=== PATIENT | male | born 1970 ===

== ENCOUNTER 2023-06-16 10:08 | Outpatient (REF) | payer MEDICAID, SELFPAY ==
[2023-06-16 12:07] LABS: Alanine Aminotransferase 36 U/L (0-40); Albumin Level 4.6 g/dL (3.5-5.0); Alkaline Phosphatase 79 U/L (39-117); Anion Gap 11 (12-20); Aspartate Amino Transferase 33 U/L (5-37); Bilirubin Direct 0.2 mg/dL (0.0-0.5); Bilirubin Total 0.5 mg/dL (0.0-1.0); Blood Urea Nitrogen 13 mg/dL (9-16); Calcium 9.6 mg/dL (8.4-10.2); Carbon Dioxide 27 mmol/L (22-29); Chloride 109 mmol/L (96-108); Cholesterol 149 mg/dL (<200); Estimated Glomerular Filt Rate > 60; Glucose Random 104 mg/dL (60-115); HDL Cholesterol 61 mg/dL (>40); LDL Cholesterol Calculated 69 mg/dL (<100); Sodium 143 mmol/L (135-145); Total Protein 7.6 g/dL (6.5-8.0); Triglycerides 97 mg/dL (<150)
[2023-06-16 12:23] LABS: TSH reflex Free T4 0.92 uIU/mL (0.32-4.0)
== END 2023-06-16 10:09 | disposition home or self-care (01) ==
LOC: HO.HHCL 10:08
PROVIDERS: Visit Provider Family Medicine
DX: E78.00 Pure hypercholesterolemia, unspecified (principal); I10 Essential (primary) hypertension; E03.9 Hypothyroidism, unspecified
CPT/HCPCS: 36415; 80048; 80061; 80076; 84443

== ENCOUNTER 2023-10-20 11:49 | Outpatient (REF) | payer MEDICAID, SELFPAY ==
[2023-10-20 13:09] LABS: MANUAL DIFF FLAG NO
[2023-10-20 13:20] LABS: Basophils Absolute Auto 0.1 X10*3/uL (0.0-0.2); Basophils Percent Auto 0.8 % (0-2); Eosinophils Percent Auto 0.3 % (0-4); Hematocrit 42.5 % (42.0-52.0); Hemoglobin 14.5 g/dl (14.0-18.0); Imm Gran Abs Auto 0.05 X10*3/uL (0.00-0.03); Imm Gran Pct Auto 0.4 % (0.0-0.4); Lymphocytes Absolute Auto 2.7 X10*3/uL (1.2-4.9); Lymphocytes Percent Auto 22.3 % (20-40); Mean Corpuscular HGB Conc 34.1 g/dl (31.0-36.0); Mean Corpuscular Hemoglobin 31.4 pg (27.0-33.0); Mean Platelet Volume 9.8 fL (9.4-12.4); Monocytes Percent Auto 8.2 % (2-11); Neutrophils Absolute Auto 8.1 x10*3/uL (2.0-8.3); Platelet Count 371 X10*3/uL (160-400); Red Blood Count 4.62 X10*6/uL (4.60-5.80); Red Cell Distribution Width 13.7 % (11.0-16.0)
[2023-10-20 13:30] LABS: Rheumatoid Factor 30.3 IU/mL (<15.0)
[2023-10-20 13:59] LABS: Erythrocyte Sedimentation Rate 21 MM/HR (0-15)
[2023-10-23 17:08] LABS: Lyme Abs Screen <0.90 index
== END 2023-10-20 11:50 | disposition home or self-care (01) ==
LOC: HO.HHCL 11:49
PROVIDERS: Visit Provider Nurse Practitioner Family
DX: M25.562 Pain in left knee (principal); M05.7A Rheumatoid arthritis with rheumatoid factor of other specified site without organ or systems involvement
CPT/HCPCS: 36415; 85025; 85652; 86140; 86431; 86617; 86618

== ENCOUNTER 2023-10-20 12:13 | Outpatient (REF) | payer MEDICAID, SELFPAY ==
--- NOTE | ~2023-10-20 | XR_ITS ---
EXAMINATION: XR KNEE, LEFT CLINICAL INFORMATION: Pain and swelling; history of rheumatoid arthritis. COMPARISON: None available. TECHNIQUE: AP, lateral, tunnel, and sunrise views of the left knee. FINDINGS: No fracture or joint effusion. Alignment is anatomic. Joint spaces are maintained. There is a trace peripheral osteophyte of the medial femoral condyle. No abnormal soft tissue calcification. XR/XR knee LT 4V IMPRESSION: Unremarkable left knee.
== END 2023-10-20 12:14 | disposition home or self-care (01) ==
LOC: HO.XRAY 12:13
PROVIDERS: Visit Provider Nurse Practitioner Family
DX: M25.562 Pain in left knee (principal); M05.7A Rheumatoid arthritis with rheumatoid factor of other specified site without organ or systems involvement
CPT/HCPCS: 36415; 73564; 85025; 85652; 86140; 86431; 86618

== ENCOUNTER 2023-12-29 13:44 | Outpatient (REF) | payer MEDICAID, SELFPAY ==
--- NOTE | ~2023-12-29 | XR_ITS ---
EXAMINATION: XR SACROILIAC JOINTS 4 VIEWS CLINICAL INFORMATION: Other dorsalgia M54.89. COMPARISON: None available TECHNIQUE: 4 views of the sacroiliac joints FINDINGS: Mild bilateral SI joint arthritis, with subchondral sclerosis/cysts marginating the SI joints.. Gas and stool projected over the pelvic bones, sacrum and coccyx limiting evaluation. In the nonobscured bones, no acute fracture seen. XR/XR sacroiliac joint 1-2V IMPRESSION: Mild bilateral SI joint osteoarthritis.. Study is assigned for dictation on February 28, 2024 Electronically signed by: Onofre Lopez MD 02/28/2024 12:02 PM ELIUD Workstation: [id number]
--- NOTE | ~2023-12-29 | XR_ITS ---
EXAMINATION: XR RIGHT HAND AND WRIST COMPLETE CLINICAL INFORMATION: Rheumatoid arthritis, unspecified M06.9. COMPARISON: None available. TECHNIQUE: PA, lateral, and oblique views of the right hand and wrist. FINDINGS: No fracture. Alignment is anatomic. Joint spaces are maintained. No erosions or soft tissue calcifications. XR/XR hand wrist RT IMPRESSION: No acute osseous abnormality Study is assigned for dictation on February 28, 2024 Electronically signed by: Onofre Lopez MD 02/28/2024 04:54 PM ELIUD KERNS
--- NOTE | ~2023-12-29 | XR_ITS ---
EXAMINATION: XR LEFT FOOT 3 OR MORE VIEWS CLINICAL INFORMATION: Rheumatoid arthritis, unspecified M06.9. COMPARISON: None available. TECHNIQUE: AP, lateral, and oblique views of the left foot. FINDINGS: . No acute fracture. Alignment is anatomic. Mild degenerative arthritis in some of the interphalangeal joints of the toes.. No erosions. No abnormal soft tissue calcification. XR/XR foot LT min 3V IMPRESSION: Mild osteoarthritis. Study is assigned for dictation on February 28, 2024 Electronically signed by: Onofre Lopez MD 02/28/2024 02:43 PM ELIUD KERNS
--- NOTE | ~2023-12-29 | XR_ITS ---
EXAMINATION: XR RIGHT FOOT 3 VIEWS CLINICAL INFORMATION: Rheumatoid arthritis, unspecified M06.9. COMPARISON: None available. TECHNIQUE: AP, lateral, and oblique views of the right foot. FINDINGS: No acute fracture. Alignment is anatomic. Mild degenerative arthritis in some of the interphalangeal joints of the toes. No erosions. No abnormal soft tissue calcification.. XR/XR foot RT min 3V IMPRESSION: Mild degenerative arthritis. Study is assigned for dictation on February 28, 2024 Electronically signed by: Onofre Lopez MD 02/28/2024 02:38 PM EST RP
--- NOTE | ~2023-12-29 | XR_ITS ---
EXAMINATION: XR RIGHT SHOULDER 3 VIEWS CLINICAL INFORMATION: Rheumatoid arthritis, unspecified M06.9. COMPARISON: None available. TECHNIQUE: Three views of the right shoulder. FINDINGS: No fracture. Glenohumeral and acromioclavicular alignment is anatomic with normal joint space. Mild acromioclavicular arthritis. No abnormal soft tissue calcifications. XR/XR shoulder RT min 2V IMPRESSION: Mild acromioclavicular arthritis. Study is assigned for dictation on February 28, 2024 Electronically signed by: Onofre Lopez MD 02/28/2024 12:46 PM EST RP Workstation: [id number]
--- NOTE | ~2023-12-29 | XR_ITS ---
EXAMINATION: XR LEFT SHOULDER 3 VIEWS CLINICAL INFORMATION: Rheumatoid arthritis, unspecified M06.9. COMPARISON: None available. TECHNIQUE: Three views of the left shoulder. FINDINGS: No fracture. Glenohumeral and acromioclavicular alignment is anatomic with normal joint space. No abnormal soft tissue calcifications. XR/XR shoulder LT min 2V IMPRESSION: No acute osseous abnormality Study is assigned for dictation on February 28, 2024 Electronically signed by: Onofre Lopez MD 02/28/2024 04:50 PM EST RP
--- NOTE | ~2023-12-29 | XR_ITS ---
EXAMINATION: XR LEFT HAND AND WRIST COMPLETE CLINICAL INFORMATION: Rheumatoid arthritis, unspecified M06.9. COMPARISON: None available. TECHNIQUE: PA, lateral, and oblique views of the left hand and wrist. FINDINGS: No fracture. Alignment is anatomic. Mild fifth DIP joint space narrowing. Joint spaces otherwise are maintained. No erosions or soft tissue calcifications. XR/XR hand wrist LT IMPRESSION: Mild fifth DIP joint osteoarthritis Study is assigned for dictation on February 28, 2024 Electronically signed by: Onofre Lopez MD 02/28/2024 12:46 PM ELIUD KERNS
[2023-12-29 15:18] LABS: MANUAL DIFF FLAG NO
[2023-12-29 15:30] LABS: Basophils Absolute Auto 0.1 X10*3/uL (0.0-0.2); Basophils Percent Auto 1.2 % (0-2); Eosinophils Absolute Auto 0.1 X10*3/uL (0.0-0.4); Eosinophils Percent Auto 1.1 % (0-4); Hematocrit 41.5 % (42.0-52.0); Hemoglobin 14.4 g/dl (14.0-18.0); Imm Gran Abs Auto 0.02 X10*3/uL (0.00-0.03); Imm Gran Pct Auto 0.2 % (0.0-0.4); Lymphocytes Absolute Auto 2.9 X10*3/uL (1.2-4.9); Lymphocytes Percent Auto 32.2 % (20-40); Mean Corpuscular HGB Conc 34.7 g/dl (31.0-36.0); Mean Corpuscular Hemoglobin 31.1 pg (27.0-33.0); Mean Corpuscular Volume 89.6 fL (80.0-98.0); Mean Platelet Volume 9.3 fL (9.4-12.4); Monocytes Absolute Auto 0.6 X10*3/uL (0.1-1.2); Monocytes Percent Auto 6.7 % (2-11); Neutrophils Absolute Auto 5.2 x10*3/uL (2.0-8.3); Neutrophils Percent Auto 58.6 % (45-73); Platelet Count 321 X10*3/uL (160-400); Red Blood Count 4.63 X10*6/uL (4.60-5.80); Red Cell Distribution Width 13.7 % (11.0-16.0); White Blood Count 8.9 X10*3/uL (4.8-10.8)
[2023-12-29 15:58] LABS: Rheumatoid Factor 25.7 IU/mL (<15.0)
[2023-12-29 16:00] LABS: Alanine Aminotransferase 35 U/L (0-40); Albumin Level 4.6 g/dL (3.5-5.0); Alkaline Phosphatase 86 U/L (39-117); Anion Gap 11 (12-20); Aspartate Amino Transferase 37 U/L (5-37); Bilirubin Total 0.4 mg/dL (0.0-1.0); Blood Urea Nitrogen 10 mg/dL (9-16); C Reactive Protein < 0.10 mg/dL (< or = 0.50); Calcium 9.7 mg/dL (8.4-10.2); Carbon Dioxide 27 mmol/L (22-29); Chloride 109 mmol/L (96-108); Estimated Glomerular Filt Rate > 60; Glucose Random 98 mg/dL (60-115); Potassium 4.3 mmol/L (3.3-5.1); Sodium 143 mmol/L (135-145); Total Protein 7.5 g/dL (6.5-8.0)
[2023-12-29 16:09] LABS: Erythrocyte Sedimentation Rate 6 MM/HR (0-15)
[2023-12-30 04:17] LABS: HBS Num1 0.57 mIU/mL (0-7.99); HBc Num1 0.07 S/CO (0.00-0.79); Hepatitis A Antibody IgM 0.31 Index (0-0.79); Hepatitis B Core Antibody Nonreactive (Nonreactive); Hepatitis B Surface Antigen Negative (Negative); ~HepC Num1 0.07 S/CO (0.00-0.79); ~Hepatitis A Antibody IgM Nonreactive (Nonreactive); ~Hepatitis B Surface Antibody NONREACTIVE (Nonreactive); ~Hepatitis C Antibody Nonreactive (Nonreactive)
[2024-01-03 14:53] LABS: HLA B27 Negative (Negative)
[2024-01-04 13:48] LABS: Cyclic Citrullinated Peptide <16 UNITS
== END 2023-12-29 13:45 | disposition home or self-care (01) ==
LOC: HO.LAB 13:44
PROVIDERS: Visit Provider Student in an Organized Health Care Education/Training Program
DX: M06.9 Rheumatoid arthritis, unspecified (principal); M54.89 Other dorsalgia
CPT/HCPCS: 36415; 72200; 73030; 73110; 73130; 73630; 80053; 85025; 85652; 86140; 86200; 86431; 86704; 86706; 86709; 86803; 86812; 87340; 99202

== ENCOUNTER 2023-12-29 13:44 | Outpatient (AMB) | payer MEDICAID, SELFPAY ==
--- NOTE | 2023-12-29 14:01 | A.OFFVIS_ITS ---
Vital Signs 12/29/23 14:18 12/29/23 14:30 Height 5 ft 7 in Weight 171 lb 4.787 oz BMI 26.8 26.8 BP 102/60 Blood Pressure Location Lt brachial Position Sitting Pulse 102 H Pulse Source Pulse Oximeter Pulse Oximetry (%) 97 Oxygen Delivery Method Room Air Intake Visit Reasons: Rheumatoid Arthritis Intake Note: Patient presents for RA. I feel pain on both shoulders, back of neck, lower back, both knees and both heels. I been feeling this pain for 3 or 4 years. I am taking Celebrex and it works short term Newspaper Columnist Required: Yes Newspaper Columnist Language: Sign Maker Services: Newspaper Columnist Present Newspaper Columnist Name: Anette [id number] Information Interpreted: non-clinical & clinical Allergies No Known Allergies Allergy (Verified 12/29/23 14:09) Medication List - Last Reconciled 12/29/23 by Isamar Richter MD amlodipine 5 mg PO DAILY aspirin 81 mg PO DAILY atorvastatin 20 mg PO DAILY bupropion HCl XL 150 mg PO QAM gabapentin 300 mg PO BEDTIME levothyroxine 50 mcg PO DAILY lisinopril 10 mg PO DAILY HPI Comments Details: Patient is a 52-year-old male with hypertension, hyperlipidemia, hypothyroidism on levothyroxine and depression presents for evaluation of a diagnosis of rheumatoid arthritis. He recently immigrated to the [facility] from [place] about 8 months ago. He states that about 2 years ago he was diagnosed with rheumatoid arthritis when he was in [place]. He was given meloxicam for his pain which helped his pain a little but not completely. He denies ever being placed on methotrexate or any injectable medications. Today he complains of polyarticular joint pain involving the hands wrists elbows, shoulders, knees and back. He states that he has prolonged morning stiffness about 2-3 hours and this is associated with swelling and inability to open and close his hands. He does have a very strong family history of rheumatoid arthritis stating that his mother and his sisters have rheumatoid arthritis as well. Denies history of monoarticular joint swelling. [facility] Medical History (Updated 12/29/23 @ 14:59 by Isamar Richter MD) Asthma in adult without complication Generalized anxiety disorder Hypothyroidism Hypercholesterolemia Benign essential hypertension Tobacco dependence Pain in left knee Rheumatoid arthritis Social History (Updated 12/29/23 @ 14:18 by Frances Castillo CCMA) Household Members: Family Housing: House Alcohol intake: current Comment: Rare Patient Tobacco Use Status: Former Tobacco user Tobacco use type: Cigarette Cigarette Packs Per Day: 1 Years Smoked: 40 Review of Systems Const Details: Review of Systems Constitutional: Denies fever, chills, weight loss ENT: Denies vision changes, eye pain or eye redness, dental caries, dry mouth GI: Denies nausea, vomiting, diarrhea, abdominal pain, change in BM Pulm: Denies SOB, CAMP[place], hemoptysis, wheezing Cards: Denies chest pain, palpitations Skin: Denies Raynaud's, rash, nail changes, photosensitivity, PLUMBER AND TINNER: Denies headaches, weakness, paresthesias, recurrent falls MSK: as per HPI All other systems reviewed and are unremarkable except noted above Physical Exam Vital Signs: Last Vital Signs Pulse 102 H 12/29/23 14:18 BP 102/60 12/29/23 14:18 Pulse Ox 97 12/29/23 14:18 Oxygen Delivery Method Room Air 12/29/23 14:18 BMI result Body Mass Index 26.8 Const Other: Physical Examination Patient well appearing and in no apparent painful distress. Constitutional Mucous membranes pink and moist patient alert and cooperative HEENT Conjunctiva and sclera clear. ?Pupils equal round and reactive to light. ?No lymphadenopathy. ?Normal dentition. Respiratory System Normal respiratory effort and able to speak in complete sentences. ?Clear to auscultation bilaterally. ?No crackles, rales, rhonchi, wheezes heard. Cardiac System Regular rate and rhythm. ?S1 and S2 heard no murmurs. ?Radial pulses intact bilaterally MSK Patient with tenderness to palpation of the MCPs bilaterally, wrists, elbows, shoulders. No warmth or bogginess noted in these joints. (he was recently placed on Celebrex) Full range of motion to the joints. Results Reviewed Results Reviewed: Laboratory Tests 06/16/23 10/20/23 10:12 11:55 WBC 12.0 H RBC 4.62 Hgb 14.5 Hct 42.5 Plt Count 371 ESR 21 H Sodium 143 Potassium 4.0 Chloride 109 H Carbon Dioxide 27 BUN 13 Creatinine 0.83 Calcium 9.6 AST 33 ALT 36 Alkaline Phosphatase 79 C-Reactive Protein 2.50 H Total Protein 7.6 Albumin 4.6 Rheumatoid Factor 30.3 H Knee x-ray 10/20/2023 reviewed. No abnormalities noted. (My read) Assessment & Plan Assessment & Plan (1) Rheumatoid arthritis: Code(s): M06.9 - Rheumatoid arthritis, unspecified Category: Medical Qualifiers: Rheumatoid arthritis location: multiple sites Rheumatoid factor presence: with rheumatoid factor Qualified Code(s): M05.79 - Rheumatoid arthritis with rheumatoid factor of multiple sites without organ or systems involvement Plan: #Inflammatory arthritis Patient with active inflammation and synovitis on examination today consistent with inflammatory arthritis. She does have a positive RF on file but we will check CCP as well as HLA B27. Need to confirm the diagnosis of rheumatoid arthritis prior to starting methotrexate but in the meantime I gave him a prednisone taper and I will see him in 1 month with blood results as well as x- rays. Plan I spent 45 minutes reviewing the record and labs, seeing the patient, discussing the treatment plan and documenting in the medical record Orders: Orders C Reactive Protein Today M06.9 - Rheumatoid arthritis, unspecified Erythrocyte Sedimentation Rate Today M06.9 - Rheumatoid arthritis, unspecified Hepatitis A,B,C Profile Today M06.9 - Rheumatoid arthritis, unspecified Rheumatoid Factor Today M06.9 - Rheumatoid arthritis, unspecified XR foot RT min 3V Today M06.9 - Rheumatoid arthritis, unspecified XR shoulder LT min 2V Today M06.9 - Rheumatoid arthritis, unspecified XR sacroiliac joint 1-2V Today M54.89 - Other dorsalgia Comprehensive Met. Panel Today M06.9 - Rheumatoid arthritis, unspecified Complete Blood Count Auto Diff Today M06.9 - Rheumatoid arthritis, unspecified Cyclic Citrullinated Peptide Today M06.9 - Rheumatoid arthritis, unspecified XR hand wrist LT Today M06.9 - Rheumatoid arthritis, unspecified XR hand wrist RT Today M06.9 - Rheumatoid arthritis, unspecified XR foot LT min 3V Today M06.9 - Rheumatoid arthritis, unspecified XR shoulder RT min 2V Today M06.9 - Rheumatoid arthritis, unspecified HLA B27 Today M54.89 - Other dorsalgia Medications: New prednisone take 3 tablets (15mg) for 1 week then 2 tablets (10mg) for 1 week then 1 tablet (5mg) for 2 weeks 5 mg PO DIRECTED 50 tabs 0RF Coding Level of Care Code New Pt Level 4 (70114) Complex EM visit Add On G2211 Diagnoses Rheumatoid arthritis involving multiple sites with positive rheumatoid factor M05.79 Rheumatoid arthritis location: multiple sites Rheumatoid factor presence: with rheumatoid factor
[2023-12-29 14:18] VITALS: BP 102/60; PULSE 102; O2SAT 97; BMI 26.8
--- NOTE | 2023-12-29 14:28 | MHC.OFFVIS ---
Vital Signs 12/29/23 14:18 12/29/23 14:30 Height 5 ft 7 in Weight 171 lb 4.787 oz BMI 26.8 26.8 BP 102/60 Blood Pressure Location Lt brachial Position Sitting Pulse 102 H Pulse Source Pulse Oximeter Pulse Oximetry (%) 97 Oxygen Delivery Method Room Air Intake Visit Reasons: Rheumatoid Arthritis Kindergarten Instructional Assistant Required: Yes Kindergarten Instructional Assistant Services: Kindergarten Instructional Assistant Present Kindergarten Instructional Assistant Name: Anette #[id number] Information Interpreted: non-clinical & clinical General Science Teacher: General Science Teacher Present Accompanied by: Spouse Allergies No Known Allergies Allergy (Verified 12/29/23 14:09) Medication List - Last Reconciled 12/29/23 by Isamar Richter MD amlodipine 5 mg PO DAILY aspirin 81 mg PO DAILY atorvastatin 20 mg PO DAILY bupropion HCl XL 150 mg PO QAM gabapentin 300 mg PO BEDTIME levothyroxine 50 mcg PO DAILY lisinopril 10 mg PO DAILY HPI Comments Details: Patient is a 52-year-old male with hypertension, hyperlipidemia, hypothyroidism on levothyroxine and depression presents for evaluation of a diagnosis of rheumatoid arthritis. He recently immigrated to the [facility] from [place] about 8 months ago. He states that about 2 years ago he was diagnosed with rheumatoid arthritis when he was in [place]. He was given meloxicam for his pain which helped his pain a little but not completely. He denies ever being placed on methotrexate or any injectable medications. Today he complains of polyarticular joint pain involving the hands wrists elbows, shoulders, knees and back. He states that he has prolonged morning stiffness about 2-3 hours and this is associated with swelling and inability to open and close his hands. He does have a very strong family history of rheumatoid arthritis stating that his mother and his sisters have rheumatoid arthritis as well. Denies history of monoarticular joint swelling. [facility] Medical History (Updated 12/29/23 @ 14:38 by Isamar Richter MD) Asthma in adult without complication Generalized anxiety disorder Hypothyroidism Hypercholesterolemia Benign essential hypertension Tobacco dependence Pain in left knee Rheumatoid arthritis Social History (Updated 12/29/23 @ 14:18 by HIRAL Presley) Household Members: Family Housing: House Alcohol intake: current Comment: Rare Patient Tobacco Use Status: Former Tobacco user Tobacco use type: Cigarette Cigarette Packs Per Day: 1 Years Smoked: 40 Review of Systems Const Details: Review of Systems Constitutional: Denies fever, chills, weight loss ENT: Denies vision changes, eye pain or eye redness, dental caries, dry mouth GI: Denies nausea, vomiting, diarrhea, abdominal pain, change in BM Pulm: Denies SOB, CAMP[place], hemoptysis, wheezing Cards: Denies chest pain, palpitations Skin: Denies Raynaud's, rash, nail changes, photosensitivity, PRODUCT SUPPORT TECHNICIAN: Denies headaches, weakness, paresthesias, recurrent falls MSK: as per HPI All other systems reviewed and are unremarkable except noted above Physical Exam Vital Signs: Last Vital Signs Pulse 102 H 12/29/23 14:18 BP 102/60 12/29/23 14:18 Pulse Ox 97 12/29/23 14:18 Oxygen Delivery Method Room Air 12/29/23 14:18 BMI result Body Mass Index 26.8 Const Other: Physical Examination Patient well appearing and in no apparent painful distress. Constitutional Mucous membranes pink and moist patient alert and cooperative HEENT Conjunctiva and sclera clear. ?Pupils equal round and reactive to light. ?No lymphadenopathy. ?Normal dentition. Respiratory System Normal respiratory effort and able to speak in complete sentences. ?Clear to auscultation bilaterally. ?No crackles, rales, rhonchi, wheezes heard. Cardiac System Regular rate and rhythm. ?S1 and S2 heard no murmurs. ?Radial pulses intact bilaterally MSK Patient with tenderness to palpation of the MCPs bilaterally, wrists, elbows, shoulders. No warmth or bogginess noted in these joints. (he was recently placed on Celebrex) Full range of motion to the joints. Quality Reporting (2019) Adult ([facility] ) Body Mass Index: 26.8 Results Reviewed Results Reviewed: Laboratory Tests 06/16/23 10/20/23 10:12 11:55 WBC 12.0 H RBC 4.62 Hgb 14.5 Hct 42.5 Plt Count 371 ESR 21 H Sodium 143 Potassium 4.0 Chloride 109 H Carbon Dioxide 27 BUN 13 Creatinine 0.83 Calcium 9.6 AST 33 ALT 36 Alkaline Phosphatase 79 C-Reactive Protein 2.50 H Total Protein 7.6 Albumin 4.6 Rheumatoid Factor 30.3 H Knee x-ray 10/20/2023 reviewed. No abnormalities noted. (My read) Assessment & Plan Assessment & Plan (1) Rheumatoid arthritis: Code(s): M06.9 - Rheumatoid arthritis, unspecified Category: Medical Plan: #Inflammatory arthritis Patient with active inflammation and synovitis on examination today consistent with inflammatory arthritis. She does have a positive RF on file but we will check CCP as well as HLA B27. Need to confirm the diagnosis of rheumatoid arthritis prior to starting methotrexate but in the meantime I gave him a prednisone taper and I will see him in 1 month with blood results as well as x-rays. Plan I spent 45 minutes reviewing the record and labs, seeing the patient, discussing the treatment plan and documenting in the medical record Orders: Orders C Reactive Protein Today M06.9 - Rheumatoid arthritis, unspecified Erythrocyte Sedimentation Rate Today M06.9 - Rheumatoid arthritis, unspecified Hepatitis A,B,C Profile Today M06.9 - Rheumatoid arthritis, unspecified Rheumatoid Factor Today M06.9 - Rheumatoid arthritis, unspecified XR foot RT min 3V Today M06.9 - Rheumatoid arthritis, unspecified XR shoulder LT min 2V Today M06.9 - Rheumatoid arthritis, unspecified XR sacroiliac joint 1-2V Today M54.89 - Other dorsalgia Comprehensive Met. Panel Today M06.9 - Rheumatoid arthritis, unspecified Complete Blood Count Auto Diff Today M06.9 - Rheumatoid arthritis, unspecified Cyclic Citrullinated Peptide Today M06.9 - Rheumatoid arthritis, unspecified XR hand wrist LT Today M06.9 - Rheumatoid arthritis, unspecified XR hand wrist RT Today M06.9 - Rheumatoid arthritis, unspecified XR foot LT min 3V Today M06.9 - Rheumatoid arthritis, unspecified XR shoulder RT min 2V Today M06.9 - Rheumatoid arthritis, unspecified HLA B27 Today M54.89 - Other dorsalgia Medications: New prednisone take 3 tablets (15mg) for 1 week then 2 tablets (10mg) for 1 week then 1 tablet (5mg) for 2 weeks 5 mg PO DIRECTED 50 tabs 0RF Coding Level of Care Code New Pt Level 4 (90578) Complex EM visit Add On G2211 Diagnoses Rheumatoid arthritis M06.9
[2023-12-29 14:30] VITALS: BMI 26.8
== END 2023-12-29 14:51 | disposition home or self-care (01) ==
PROVIDERS: Visit Provider Student in an Organized Health Care Education/Training Program
DX: M05.79 Rheumatoid arthritis with rheumatoid factor of multiple sites without organ or systems involvement (principal)
CPT/HCPCS: 99204; 99499

== ENCOUNTER 2024-01-26 11:17 | Outpatient (AMB) | payer MEDICAID, SELFPAY ==
--- NOTE | 2024-01-26 11:29 | A.OFFVIS_ITS ---
Vital Signs 01/26/24 11:30 Height 5 ft 7 in Weight 172 lb 6.424 oz BMI 27.0 BP 110/72 Blood Pressure Location Lt brachial Position Sitting Pulse 95 Pulse Source Pulse Oximeter Pulse Oximetry (%) 96 Oxygen Delivery Method Room Air Intake Visit Reasons: f/u blood work and prednisone per/cm Intake Note: Patient presents on for follow up on blood work and prednisone taper. He was last seen in the office on 12/29/23. Digital Media Representative Required: Yes Digital Media Representative Services: Digital Media Representative Present Digital Media Representative Name: Kenji [id number] Accompanied by: Sister Allergies No Known Allergies Allergy (Verified 01/26/24 11:32) Medication List - Last Reconciled 01/26/24 by Isamar Richter MD amlodipine 5 mg PO DAILY aspirin 81 mg PO DAILY atorvastatin 20 mg PO DAILY bupropion HCl XL 150 mg PO QAM folic acid 1 mg PO DAILY gabapentin 300 mg PO BEDTIME levothyroxine 50 mcg PO DAILY lisinopril 10 mg PO DAILY methotrexate sodium 15 mg (6 x 2.5 mg) PO QWEEK HPI Comments Details: Patient is a 53-year-old male with hypertension, hyperlipidemia, hypothyroidism on levothyroxine and depression who presents for follow-up for diagnosis of rheumatoid arthritis Interval History: Last seen 12/29/2023 with me. At that time patient had inflammatory arthritis and synovitis and was given a prednisolone taper pending blood work. Rheumatologic History: Patient establish care 12/2023 after recently emig[place] the [place] that year. Diagnosed with RA at the age of 51 and was managed mainly with meloxicam. Patient is started on prednisone taper with plans to initiate methotrexate at following visit Current Rheumatology Medication(s): [facility] Medical History (Updated 01/26/24 @ 11:53 by Isamar Richter MD) Encounter for methotrexate monitoring Osteoarthritis of lower back Seropositive rheumatoid arthritis Asthma in adult without complication Generalized anxiety disorder Hypothyroidism Hypercholesterolemia Benign essential hypertension Tobacco dependence Pain in left knee Social History (Updated 12/29/23 @ 14:18 by HIRAL Presley) Household Members: Family Housing: House Alcohol intake: current Comment: Rare Patient Tobacco Use Status: Former Tobacco user Tobacco use type: Cigarette Cigarette Packs Per Day: 1 Years Smoked: 40 Review of Systems Const Details: Review of Systems Constitutional: Denies fever, chills, weight loss ENT: Denies vision changes, eye pain or eye redness, dental caries, dry mouth GI: Denies nausea, vomiting, diarrhea, abdominal pain, change in BM Pulm: Denies SOB, [place], hemoptysis, wheezing Cards: Denies chest pain, palpitations Skin: Denies Raynaud's, rash, nail changes, photosensitivity, OIL PLANT OPERATOR: Denies headaches, weakness, paresthesias, recurrent falls MSK: as per HPI All other systems reviewed and are unremarkable except noted above Physical Exam Vital Signs: Last Vital Signs Pulse 95 01/26/24 11:30 BP 110/72 01/26/24 11:30 Pulse Ox 96 01/26/24 11:30 Oxygen Delivery Method Room Air 01/26/24 11:30 BMI result Body Mass Index 27.0 Physical Examination Patient well appearing and in no apparent painful distress. Constitutional Mucous membranes pink and moist patient alert and cooperative HEENT Conjunctiva and sclera clear. ?Pupils equal round and reactive to light. ?No lymphadenopathy. ?Normal dentition. Respiratory System Normal respiratory effort and able to speak in complete sentences. ?Clear to auscultation bilaterally. ?No crackles, rales, rhonchi, wheezes heard. Cardiac System Regular rate and rhythm. ?S1 and S2 heard no murmurs. ?Radial pulses intact bilaterally MSK Patient with tenderness to palpation of the MCPs bilaterally, wrists, elbows, shoulders. No warmth or bogginess noted in these joints. (he was recently placed on Celebrex) Full range of motion to the joints. Results Reviewed Results Reviewed: Laboratory Tests 10/20/23 12/29/23 11:55 15:17 WBC 8.9 RBC 4.63 Hgb 14.4 Hct 41.5 L MCV 89.6 Plt Count 321 ESR 6 Sodium 143 Potassium 4.3 Chloride 109 H Carbon Dioxide 27 BUN 10 Creatinine 0.80 AST 37 ALT 35 C-Reactive Protein 2.50 H < 0.10 Rheumatoid Factor 30.3 H 25.7 H Cycl Citrul Peptide IgG <16 HLA-B27 Negative Laboratory Tests 12/29/23 15:17 Hepatitis A IgM Ab Nonreactive Hep Bs Antigen Negative Hep Bs Antibody NONREACTIVE Hep B Core Total Ab Nonreactive Hepatitis C Ab (EIA) Nonreactive Assessment & Plan Assessment & Plan (1) Seropositive rheumatoid arthritis: Code(s): M05.9 - Rheumatoid arthritis with rheumatoid factor, unspecified Category: Medical Plan: #Seropositive Non erosive RA Patient with seropositive (RF) nonerosive rheumatoid arthritis. Hands look much better this week after prednisone taper. We will start methotrexate initially at 4 tablets a week for 4 weeks and then increase to 6 tablets a week. We will also start folic acid 1 tablet daily. We will follow up in 4 months (2) Osteoarthritis of lower back: Code(s): M47.9 - Spondylosis, unspecified Category: Medical Plan: #OA of back Physical therapy (3) Encounter for methotrexate monitoring: Code(s): Z51.81 - Encounter for therapeutic drug level monitoring; Z79.631 - termite technician (current) use of antimetabolite agent Category: Medical Plan: #Long-term Current Use of Methotrexate Discussed with patient the benefits and risks of methotrexate for managing their rheumatic condition Benefits include reduced pain, reduced mortality, maintenance of remission and reduction of flares Risks include oral ulcers, photosensitivity, hepatotoxicity, hematologic toxicity, pneumonitis, flu-like symptoms (especially day after administration), nodulosis, lymphomas ? Limit alcohol and avoid Bactrim ? Monitoring: ?CBC, BMP, LFTs every 3-4 months and hepatitis serologies as needed Plan I spent 30 minutes reviewing the record and labs, seeing the patient, discussing the treatment plan and documenting in the medical record ? For next visit: * Follow up methotrexate response Orders: Orders Erythrocyte Sedimentation Rate 4 Months M05.9 - Rheumatoid arthritis with rheumatoid factor, unspecified, Z51.81 - Encounter for therapeutic drug level monitoring, Z79.631 - longterm (current) use of antimetabolite agent Complete Blood Count Auto Diff 4 Months M05.9 - Rheumatoid arthritis with rheumatoid factor, unspecified, Z51.81 - Encounter for therapeutic drug level monitoring, Z79.631 - longterm (current) use of antimetabolite agent Comprehensive Met. Panel 4 Months M05.9 - Rheumatoid arthritis with rheumatoid factor, unspecified, Z51.81 - Encounter for therapeutic drug level monitoring, Z79.631 - termite technician (current) use of antimetabolite agent C Reactive Protein 4 Months M05.9 - Rheumatoid arthritis with rheumatoid factor, unspecified, Z51.81 - Encounter for therapeutic drug level monitoring, Z79.631 - termite technician (current) use of antimetabolite agent PT Evaluation and Treatment Today M47.9 - Spondylosis, unspecified Medications: New folic acid 1 mg PO DAILY 90 tabs 1RF M05.9 - Rheumatoid arthritis with rheumatoid factor, unspecified methotrexate sodium Take 4 tablets every week for 4 weeks then 6 tablets every week. 15 mg (6 x 2.5 mg) PO QWEEK 90 tabs 1RF M05.9 - Rheumatoid arthritis with rheumatoid factor, unspecified Discontinued prednisone take 3 tablets (15mg) for 1 week then 2 tablets (10mg) for 1 week then 1 tablet (5mg) for 2 weeks Discontinued Reason: Doctor's Order 5 mg PO DIRECTED 50 tabs 0RF Coding Level of Care Code Est Pt Level 4 (50849) Complex EM visit Add On G2211 Diagnoses Seropositive rheumatoid arthritis M05.9 Osteoarthritis of lower back M47.9 Encounter for methotrexate monitoring Z51.81; Z79.631
[2024-01-26 11:30] VITALS: BP 110/72; PULSE 95; O2SAT 96; BMI 27.0
== END 2024-01-26 11:52 | disposition home or self-care (01) ==
PROVIDERS: Visit Provider Student in an Organized Health Care Education/Training Program
DX: M05.79 Rheumatoid arthritis with rheumatoid factor of multiple sites without organ or systems involvement (principal); M47.9 Spondylosis, unspecified; Z51.81 Encounter for therapeutic drug level monitoring; Z79.631 Long term (current) use of antimetabolite agent
CPT/HCPCS: 99214

== ENCOUNTER → 2024-01-26 11:17 | Outpatient (BNVA) | payer MEDICAID, SELFPAY | PROVIDERS: Visit Provider Student in an Organized Health Care Education/Training Program | DX: M05.9 Rheumatoid arthritis with rheumatoid factor, unspecified (principal); M47.9 Spondylosis, unspecified; Z51.81 Encounter for therapeutic drug level monitoring; Z79.631 Long term (current) use of antimetabolite agent | CPT/HCPCS: 99212 ==

== ENCOUNTER 2024-04-09 08:27 | Outpatient (RCR) | payer MEDICAID, SELFPAY ==
--- NOTE | 2024-04-09 09:34 | MHC.PT.EP ---
[facility] [place] Office [place] Office [place] Office [address] Stacy Covarrubias [address] [phone] F: [phone] F: [phone] F: [phone] F: [phone] Physical Therapy Plan of Care Date of Evaluation: 04/09/24 Date of Surgery: n/a Diagnosis: OA of low back Assessment: Patient is a 53 year old male presenting to PT with complaints of pain in his low back. Pt reports onset of pain began over 10 years ago due to insidious onset. He presents today with impairments in pain, lumbar ROM, hip strength. Pt's current occupation is none, with baseline physical activities including ambulating, standing, sitting, ADLs. 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 Clinical presentation today is most consistent with signs and sx associated with low back pain and pt will benefit from skilled PT 1 week x 4 weeks to address the following problems and impairments noted upon evaluation: pain, lumbar ROM, hip strength. His rehab potential is fair due to pt stating he does not want to do exercises. These problems limit the patient with the following functional activities: ambulating, standing, sitting, ADLs. The prescribed treatment plan of care is medically necessary. Co-morbidities of RA, HTN were identified and taken into considerations of plan of care. Pt was educated on HEP, role of PT, prognosis, POC. Frequency and Duration: The patient will be seen 1 x week x 4 weeks Short Term Goals: Pt will demonstrate compliance with initial exercises in 1 visit. Pt will demonstrate improved hip strength by 1/3 grade in 2 weeks. Prison Goals: Pt will demonstrate improved Brenda score by 10% in 4 weeks for improved functional mobility. Pt will demonstrate ability to complete ADLs with min to no pain in 4 weeks for improved tolerance to activities at home. Treatment Plan: Modalities to reduce pain, spasms and effusion. Manual therapy to restore motion and function. Therapeutic exercise to improve strength and flexibility. Neuromuscular re-education for posture and balance. Therapeutic activities to return to functional activities of daily living. Electronically signed by: Suri Perez, PT, DPT, ATC Please sign and return to therapist. Thank you for your referral.
--- NOTE | 2024-05-10 08:18 | MHC.PT.DC ---
[facility] [place] Office [place] Office [place] Office [address] Covarrubias [address] [phone] F: [phone] F: [phone] F: [phone] F: [phone] Physical Therapy Discharge Report Diagnosis: OA of low back Date of Surgery: n/a Date of Evaluation: 04/09/24 Date of Discharge: 05/10/24 Treatments to Date: 1 Cancellations to Date: 1 No Shows to Date: 0 Discharge Status: Discharge Summary: Pt has not attended skilled PT since the eval >30 days ago and therefore to be d/c. Electronically signed by: Suri Perez, PT, DPT, ATC Please sign and return to therapist. Thank you for your referral.
== END 2024-05-10 08:19 | disposition home or self-care (01) ==
LOC: HO.PTCHIC 08:27
PROVIDERS: PCP Internal Medicine Geriatric Medicine; Visit Provider Student in an Organized Health Care Education/Training Program
DX: M47.9 Spondylosis, unspecified (principal)
CPT/HCPCS: 97110; 97161

== ENCOUNTER 2024-05-31 08:35 | Outpatient (REF) | payer MEDICAID, SELFPAY ==
--- OUTSIDE RECORDS SUMMARY | 2024-05-31 08:50 | XMS_ITS | Encounter Summary ---
Author Organization [employer] Address [address] [facility] [address] [place] [address] Care Team Providers Care Liquid Natural Gas Plant Operator Name Role Phone Name, Virgilio HAMLIN Primary Care Provider [phone] Reason for Visit * Reason Comments Med Refill Encounter Details Date Type Department Care Team ([facility] st Contact Info) Description 05/24/2024 Refill [facility] [address] [place], [place] [phone] Name, MD Virgilio [address] [place] [address] Rheumatoid arthritis, involving unspecified site, unspecified whether rheumatoid factor present ([facility]) Social History Tobacco Use Types Packs/Day Years Used Date Smoking Tobacco: Every Day Cigarettes Passive Smoke Exposure: Past Smokeless Tobacco: Never Alcohol Use Standard Drinks/Week Comments Yes 0 (1 standard drink = 0.6 oz pur e alcohol) Housing Stability Answer Date Recorded What is your housing situation today? I have otoniel silva 09/07/[address] you li ve. Do you have problems with any of the following? None of the above 09/07/2023 Food Insecurity Answer Date Recorded Within the past 12 months, y ou worried that your food would run out before you got money to buy more: Never True 09/07/2023 Within the past 12 months,th e food you bought just didn't last and you didn't have enough money to get more: Never True Transportation Answer Date Recorded In the past 12 months, has l ack of transportation kept you from medical appts, meetings, work or from getting things needed for daily living? No 09/07/2023 Utilities Answer Date Recorded In the past 12 months, has t he electric, gas, oil or water company threatened to shut off services in your home? No 09/07/2023 Internet Access Answer Date Recorded Internet Access Q1 Yes 03/01/2024 Internet Access Q2 Not on file 03/01/2024 Sex and Gender Information Value Date Recorded Sex Assigned at Male 06/16/2023 8:50 AM EDT Legal Sex Male 12:15 PM EST Gender Identity Male 06/16/2023 8:50 AM EDT Sexual Orientation Straight 06/16/2023 8: 50 AM EDT documented as of this encounter Plan of Treatment Upcoming Encounters Date Type Department Care Team (Late st Contact Info) Description 06/25/2024 9:15 AM EDT Office Visit [facility] [address] [place] [phone] NameVirgilio MD [address] [place] [phone] documented as of this encounter Visit Diagnoses Diagnosis Rheumatoid arthritis, involving unspecified site, unspecified whether rheumatoid factor present ([facility]) documented in this encounter Care Teams Liquid Natural Gas Plant Operator Relationship Specialty Start Date End Date Name, MD Virgilio [address] [place] [phone] PCP - General Internal Medicine 12/04/23 documented as of this encounter
--- OUTSIDE RECORDS SUMMARY | 2024-05-31 08:50 | XMS_ITS | Encounter Summary ---
Author Organization [employer] Address [address] [facility] [address] [place] [address] Care Team Providers Care Vacuum Forming Machine Operator Name Role Phone Name, Virgilio HAMLIN Primary Care Provider [phone] Reason for Visit * Reason Onset Date Comments Appointment Request 04/15/2024 Encounter Details Date Type Department Care Team ([facility] st Contact Info) Description 04/15/2024 Telephone [facility] [address] [place], [place] [phone] Name, MD Virgilio [address] [place] [address] Appointment Request Social History Tobacco Use Types Packs/Day Years [...] AM EDT documented as of this encounter Miscellaneous Notes * Telephone Encounter - Kerri Santana - 04/15/2024 9:13 AM EST Tc from pt requesting reschedule 03/14 appt with PCP. ( Office vistit, f/u (PVP completed, no concerns.) documented in this encounter Plan of Treatment Upcoming Encounters Date Type Department Care Team (Late st Contact Info) Description 06/25/2024 9:15 AM EDT Office Visit [facility] [address] [place] [address] Name, MD Virgilio [address] [place] [address] documented as of this encounter Visit Diagnoses Not on filedocumented in this encounter Care Teams Vacuum Forming Machine Operator Relationship Specialty Start Date End Date Name, MD Virgilio [address] [place] [address] PCP - General Internal Medicine 12/04/23 documented as of this encounter
--- OUTSIDE RECORDS SUMMARY | 2024-05-31 08:50 | XMS_ITS | Encounter Summary ---
Author Organization [employer] Address [address] [facility] [address] [place] [address] Care Team Providers Care Icing Maker Name Role Phone Name, Virgilio HAMLIN Primary Care Provider Reason for Visit * Reason Onset Date Comments Med Refill 04/15/2024 Encounter Details Date Type Department Care Team (Late st Contact Info) Description 04/15/2024 Telephone [facility] [address] [place], [place] [phone] Name, MD Virgilio [address] [place] [address] Med Refill Social History Tobacco Use Types Packs/Day Years [...] encounter Miscellaneous Notes * Telephone Encounter - Yuliet Gabriel LPN - 04/15/2024 9:29 AM EST Medication was sent to [facility] on 12/19/23 #90 with 1 refill. * Telephone Encounter - Kerri Santana - 04/15/2024 9:11 AM EST TC from pt requesting medication refill. Medications needing refill : amLODIPine (Norvasc) 5 MG tablet To be sent to: [facility] documented in this encounter Plan of Treatment Upcoming Encounters Date Type Department Care Team (Late st Contact Info) Description 06/25/2024 9:15 AM EDT Office Visit [facility] [address] [place] [phone] Name, MD Virgilio [address] [place] [address] documented as of this encounter Visit Diagnoses Not on filedocumented in this encounter Care Teams Icing Maker Relationship Specialty Start Date End Date Name, MD Virgilio [address] [place] [phone] PCP - General Internal Medicine 12/04/23 documented as of this encounter
--- OUTSIDE RECORDS SUMMARY | 2024-05-31 08:50 | XMS_ITS | Clinical Summary ---
Author Organization [employer] Address [address] [facility] [address] [place] [address] Care Team Providers Care Can Technician Name Role Phone Name, Virgilio HAMLIN Primary Care Provider [phone] Allergies No known active allergies Medications nicotine polacrilex (Commit) 4 MG lozenge Dissolve 1 lozenge (4 mg) in the mouth every 2 (two) hours if needed for smoking cessation. 100 lozenge 09/27/19 24 Active Blood Pressure kit 1 each 2 times daily. 1 kit 09/27/19 24 025 Active Additional Information Patient not taking.Reported on 01/09/2024 Varenicline Tartrate, Starter, (Chantix Starting Month ) 0.5 MG X 11 & 1 MG X 42 tablet therapy pack Take 0.5 mg by mouth Once daily for 3 days, THEN 0.5 mg 2 times daily for 4 days, THEN 1 mg 2 times daily for 21 days. 1 each 12/04/19 24 Active levothyroxine (Synthroid, Levoxyl) 50 MCG tabletIndicatio ns:Hypothyroidi sm, unspecified type TAKE 1 TABLET BY MOUTH EVERY DAY IN THE MORNING BEFORE BREAKFAST 90 tablet 1 12/19/19 24 Active lisinopril 10 MG tabletIndicatio ns:Benign essential hypertension TAKE 1 TABLET BY MOUTH EVERY DAY 90 tablet 1 12/19/19 24 Active atorvastatin (Lipitor) 20 MG tabletIndicatio ns:Hypercholest erolemia TAKE 1 TABLET BY MOUTH EVERY DAY 90 tablet 1 12/19/19 24 Active varenicline (Chantix) 1 MG tablet TAKE 1 TABLET BY MOUTH TWICE DAILY WITH WATER 56 tablet 1 02/27/20 24 Active Aspirin Low Dose 81 MG EC tabletIndicatio ns:Benign essential hypertension TAKE 1 TABLET BY MOUTH EVERY MORNING 90 tablet 04/04/19 25 Active amLODIPine (Norvasc) 5 MG tabletIndicatio ns:Benign essential hypertension TAKE 1 TABLET BY MOUTH EVERY DAY 90 tablet 1 04/22/19 25 Active Ventolin HFA 108 (90 Base) MCG/ACT inhalerIndicati ons:Mild intermittent asthma in adult without complication INHALE 2 PUFFS BY MOUTH EVERY 6 HOURS NEEDED FOR WHEEZING 18 g 3 04/23/19 25 Active buPROPion XL (Wellbutrin XL) 150 MG 24 hr tabletIndicatio ns:Generalized anxiety disorder TAKE 1 TABLET BY MOUTH EVERY MORNING. DO NOT BREAK, CRUSH, DISSOLVE OR CHEW 30 tablet 04/29/19 25 Active gabapentin (Neurontin) 300 MG capsuleIndicati ons:Rheumatoid arthritis, involving unspecified site, unspecified whether rheumatoid factor present (CMS/HCC) TAKE 1 CAPSULE BY MOUTH EVERY DAY AT BEDTIME 30 capsule 05/25/19 25 Active gabapentin (Neurontin) 300 MG capsuleIndicati ons:Rheumatoid arthritis, involving unspecified site, unspecified whether rheumatoid factor present (CMS/HCC) TAKE 1 CAPSULE BY MOUTH EVERY DAY AT BEDTIME 30 capsule 04/15/19 25 025 Discontinued Active Problems Problem Noted Date Diagnosed Date Acute pain of left knee 10/20/2023 Assessment & Plan (11/12/2023 11:26 AM EDT): Pt recalls dx of rheumatoid arthritis, but reports has not seen rheumatolist, No trauma. Suspect RF flare. NSAID and elevation rx, cane provided for pt, X-ray ordered If RF positive referral to rheumatology Tobacco dependence 09/27/2023 Benign essential hypertension 09/27/2023 Hypercholesterolemia 09/27/2023 Hypothyroidism 09/27/2023 Generalized anxiety disorder 09/27/2023 Rheumatoid arthritis 09/27/2023 Asthma in adult without complication 09/27/2023 Encounters Date Type Department Care Team Description 05/24/2024 Refill [facility] [address] [place] [address] Name, MD Virgilio Rheumatoid arthritis, involving unspecified site, unspecified whether rheumatoid factor present (CMS/HCC) 04/29/2024 Telephone [facility] [address] [place] [address] Do Schulz 04/27/2024 Refill [facility] [address] [place] [address] [phone] Jaky Gaspar NP Generalized anxiety disorder 04/22/2024 Refill [facility] [address] [place] [address] [phone] Romel Huber MD Mild intermittent asthma in adult without complication 04/20/2024 Refill [facility] [address] [place] [address] [phone] Virgilio Francisco MD Benign essential hypertension 04/15/2024 Telephone [facility] [address] [place] [address] 12066 Fatimah Painter MA 04/15/2024 Telephone [facility] [address] [place] [phone] Virgilio Francisco MD Appointment Request 04/15/2024 Telephone [facility] [address] [place] [phone] Virgilio Francisco MD Med Refill 04/15/2024 Refill [facility] [address] [place] [address] [phone] Jaky Gaspar NP Rheumatoid arthritis, involving unspecified site, unspecified whether rheumatoid factor present ([facility]) 04/04/2024 Refill [facility] [address] [place] [phone] Virgilio Francisco MD Benign essential hypertension 03/07/2024 Patient Outreach [facility] [address] [place] [address] Virgilio Francisco MD Pre-visit Planning (SDOH was completed on 09/07/2023) from Last 3 Months Immunizations Name Administration Dates Next Due Influenza, seasonal, injectable, preservative fr ee 12/04/2023 Pneumococcal Conjugate PCV 20 12/04/2023 Social History Tobacco Use Types Packs/Day Years Used Date Smoking Tobacco: Every Day Cigarettes Passive Smoke Exposure: Past Smokeless Tobacco: Never Tobacco Cessation:Ready to Q uit: Not Asked; Counseling Given: Not Answered Alcohol Use Standard Drinks/Week Comments Yes 0 [...] Orientation Straight 06/16/2023 8: 50 AM EDT Last Filed Vital Signs Vital Sign Reading Time Taken Comments Blood Pressure 132/86 01/09/2024 10:13 AM EDT Pulse 60 01/09/2024 10:13 AM EDT Temperature 36.7 ??C (98.1 ??F) 10/20/2023 11:06 AM E DT Respiratory Rate 21 12/04/2023 2:13 PM EDT Oxygen Saturation 98% 12/04/2023 2:13 PM EDT Inhaled Oxygen Concentration - - Weight 75.4 kg (166 lb 3.2 oz) 12/04/2023 2:13 P M EDT Height 170.2 cm (5' 7 ) 12/04/2023 2:13 PM EDT Body Mass Index 26.03 12/04/2023 2:13 PM EDT Plan of Treatment Upcoming Encounters Date Type Department Care Team (Late st Contact Info) Description 06/25/2024 9:15 AM EDT Office Visit [facility] [address] [place] [address] Name, MD Virgilio [address] [place] [address] Health Maintenance Due Date Last Done Comments CT Colonography 1970 Colonoscopy 1970 Colorectal Cancer Screening 1970 Dental Oral Exam 1970 Depression Screening 1970 FIT DNA/Cologuard 1970 FIT 1970 FOBT 1970 HIV Screening 1970 Sigmoidoscopy 1970 Alcohol/Substance Use Screening 1982 Hepatitis C Screening 1988 DTaP/Tdap/Td Vaccines (1 - Tdap) 1989 Hepatitis B Vaccines (1 of 3 - 19+ 3-dose series) 1989 Zoster Vaccines (1 of 2) 2020 COVID-19 Vaccine (1 - 2023-2 5 season) 2023 Dental Prophylaxis 07/10/2024 01/09/2024 SDOH Screening 09/06/2024 09/07/2023 Tobacco Screening 01/08/2025 01/09/2024 Dental X-Ray: Bitewings 01/09/2025 01/09/2024 Dental X-Ray: Full Mouth 01/09/2027 01/09/2024 Lipid Panel 06/15/2028 06/16/2023 RSV Patients and Pa tients Aged 60 years or older (1 - 1-dose 75+ series) 2045 Influenza Vaccine Completed 12/04/2023 Pneumococcal Vaccine: 50+ Years Completed HIB Vaccines Aged Out No longer eligi ble based on patient's age to complete this topic HPV Vaccines Aged Out No longer eligi ble based on patient's age to complete this topic Hepatitis A Vaccines Aged Out No long er eligible based on patient's age to complete this topic IPV Vaccines Aged Out No longer eligi ble based on patient's age to complete this topic Meningococcal Vaccine Aged Out No kira luma eligible based on patient's age to complete this topic RSV under 20 months Aged Out No longe r eligible based on patient's age to complete this topic Rotavirus Vaccines Aged Out No longer eligible based on patient's age to complete this topic Procedures Procedure Name Priority Date/Time Associated Diagnosis Comments PROPHYLAXIS - ADULT Routine 01/09/2024 1 0:00 AM EDT INTRAORAL - COMPLETE SERIES OF RADIOGRAPHIC IMAGES Routine 01/09/2024 10:00 AM EDT LIPID PANEL, STANDARD Routine 06/16/2023 10:12 AM EDT Hypercholesterolemi a from Last 3 Months or Most Recently Relevant to Health Maintenance Results * Lipid Panel, Standard (06/16/2023 10:12 AM EDT) Triglycerides 97 <150 mg/dL [facility] Comment:Desirable Triglyceri de: less than 150 mg/dLBorderline High Triglyceride 150-199 mg/dLHigh Triglyceride: 200-499 mg/dLVery High Triglyceride: greater than or equal to 5OO mg/dL Cholesterol 149 <200 mg/dL [facility] Comment:Desirable Cholestero l: less than 200 mg/dLBorderline High Cholesterol: 200-239 mg/dLHigh Cholesterol: greater than 239 mg/dL LDL Cholesterol Calculated 69 <100 mg/dL [facility] Comment:Desirable LDL: less than 100 mg/dLNear Optimal/Above Optimal LDL: 110- 129 mg/dLBorderline High LDL: 130-159 mg/dLHigh LDL: 160-189 mg/dLVery High LDL: greater than or equal to 190 mg/dL HDL Cholesterol 61 >40 mg/dL [facility] Comment:Desirable HDL: great er than 40 mg/dL Note: This HDL assay may give artificially low results in patients with liver disease. Blood Venous blood specimen / Unknown 06/16/2023 10:12 AM EDT 06/16/2023 11:19 AM EDT us Gurinder Dawson MD LAB BLOOD ORDERABLES Final Resul t [facility] [address] [place] [address] [phone] from Last 3 Months or Most Recently Relevant to Health Maintenance [facility] MEDICAID STAND ADULT Care Teams Can Technician Relationship Specialty Start Date End Date Name, MD Virgilio [address] [place] [phone] PCP - General Internal Medicine 12/04/23
[2024-05-31 08:52] LABS: MANUAL DIFF FLAG NO
[2024-05-31 09:12] LABS: Basophils Absolute Auto 0.1 X10*3/uL (0.0-0.2); Eosinophils Absolute Auto 0.1 X10*3/uL (0.0-0.4); Eosinophils Percent Auto 0.9 % (0-4); Imm Gran Abs Auto 0.02 X10*3/uL (0.00-0.03); Imm Gran Pct Auto 0.2 % (0.0-0.4); Lymphocytes Absolute Auto 3.4 X10*3/uL (1.2-4.9); Mean Corpuscular HGB Conc 34.1 g/dl (31.0-36.0); Mean Corpuscular Volume 90.7 fL (80.0-98.0); Mean Platelet Volume 9.4 fL (9.4-12.4); Monocytes Absolute Auto 0.7 X10*3/uL (0.1-1.2); Monocytes Percent Auto 8.6 % (2-11); Neutrophils Absolute Auto 4.3 x10*3/uL (2.0-8.3); Neutrophils Percent Auto 50.3 % (45-73); Platelet Count 355 X10*3/uL (160-400); Red Blood Count 4.52 X10*6/uL (4.60-5.80); Red Cell Distribution Width 13.6 % (11.0-16.0); White Blood Count 8.6 X10*3/uL (4.8-10.8)
[2024-05-31 09:59] LABS: Erythrocyte Sedimentation Rate 5 MM/HR (0-15)
[2024-05-31 10:07] LABS: Alanine Aminotransferase 53 U/L (0-40); Albumin Level 4.3 g/dL (3.5-5.0); Alkaline Phosphatase 87 U/L (39-117); Anion Gap 13 (12-20); Aspartate Amino Transferase 49 U/L (5-37); Bilirubin Total 0.6 mg/dL (0.0-1.0); Blood Urea Nitrogen 13 mg/dL (9-16); C Reactive Protein 0.12 mg/dL (< or = 0.50); Calcium 9.1 mg/dL (8.4-10.2); Carbon Dioxide 25 mmol/L (22-29); Chloride 107 mmol/L (96-108); Estimated Glomerular Filt Rate > 60; Glucose Random 106 mg/dL (60-115); Potassium 4.2 mmol/L (3.3-5.1); Sodium 141 mmol/L (135-145); Total Protein 7.3 g/dL (6.5-8.0)
== END 2024-05-31 08:36 | disposition home or self-care (01) ==
LOC: HO.LAB 08:35
PROVIDERS: PCP Internal Medicine Geriatric Medicine; Visit Provider Student in an Organized Health Care Education/Training Program
DX: Z51.81 Encounter for therapeutic drug level monitoring (principal); M05.9 Rheumatoid arthritis with rheumatoid factor, unspecified; Z79.631 Long term (current) use of antimetabolite agent
CPT/HCPCS: 36415; 80053; 85025; 85652; 86140

== ENCOUNTER 2024-06-04 13:29 | Outpatient (AMB) | payer MEDICAID, SELFPAY ==
[2024-06-04 13:31] VITALS: BP 124/70; PULSE 112; O2SAT 96; BMI 29.0
--- NOTE | 2024-06-04 13:31 | A.OFFVIS_ITS ---
Vital Signs 06/04/24 13:31 Height 5 ft 7 in Weight 185 lb BMI 29.0 BP 124/70 Blood Pressure Location Lt brachial Position Sitting Pulse 112 H Pulse Source Pulse Oximeter Pulse Oximetry (%) 96 Oxygen Delivery Method Room Air Intake Visit Reasons: follow up Intake Note: Patient last seen by Doctor Roland Richter on 01/26/24. Presents for follow up and test results. Patient arrives with his friend today. Allergies No Known Allergies Allergy (Verified 06/04/24 13:34) Medication List - Last Reconciled 06/04/24 by Isamar Richter MD amlodipine 5 mg PO DAILY aspirin 81 mg PO DAILY atorvastatin 20 mg PO DAILY bupropion HCl XL 150 mg PO QAM folic acid 1 mg PO DAILY gabapentin 300 mg PO BEDTIME levothyroxine 50 mcg PO DAILY lisinopril 10 mg PO DAILY methotrexate sodium 15 mg (6 x 2.5 mg) PO QWEEK HPI Comments Details: Patient is a 53-year-old male with hypertension, hyperlipidemia, hypothyroidism on levothyroxine and depression who presents for follow-up for diagnosis of rheumatoid arthritis Interval History: Last seen 01/26/24 with me. At that time he was started on methotrexate for seropositive rheumatoid arthritis. Since that visit he has noted improvement in his joints still has some residual joint pain especially involving his hands and his knees. Rheumatologic History: Patient establish care 12/2023 after recently emig[place] the [place] that year. Diagnosed with RA at the age of 51 and was managed mainly with meloxicam. Patient is started on prednisone taper with plans to initiate methotrexate at following visit Current Rheumatology Medication(s): Methotrexate 15mg weekly Folic acid 1 mg daily [facility] Medical History (Updated 06/04/24 @ 15:33 by Isamar Richter MD) Encounter for methotrexate monitoring Osteoarthritis of lower back Seropositive rheumatoid arthritis Asthma in adult without complication Generalized anxiety disorder Hypothyroidism Hypercholesterolemia Benign essential hypertension Tobacco dependence Pain in left knee Social History (Updated 12/29/23 @ 14:18 by HIRAL Presley) Household Members: Family Housing: House Alcohol intake: current Comment: Rare Patient Tobacco Use Status: Former Tobacco user Tobacco use type: Cigarette Cigarette Packs Per Day: 1 Years Smoked: 40 Review of Systems Const Details: Review of Systems Constitutional: Denies fever, chills, weight loss ENT: Denies vision changes, eye pain or eye redness, dental caries, dry mouth GI: Denies nausea, vomiting, diarrhea, abdominal pain, change in BM Pulm: Denies SOB, [place], hemoptysis, wheezing Cards: Denies chest pain, palpitations Skin: Denies Raynaud's, rash, nail changes, photosensitivity, MARBLE INSTALLER: Denies headaches, weakness, paresthesias, recurrent falls MSK: as per HPI All other systems reviewed and are unremarkable except noted above Physical Exam Vital Signs: Last Vital Signs Pulse 112 H 06/04/24 13:31 BP 124/70 06/04/24 13:31 Pulse Ox 96 06/04/24 13:31 Oxygen Delivery Method Room Air 06/04/24 13:31 BMI result Body Mass Index 29.0 Vital signs reviewed Physical Examination CONSTITUITIONAL Patient alert and cooperative. Well appearing and in no apparent painful distress HEENT Conjunctiva and sclera clear. ?Pupils equal round and reactive to light. ?No lymphadenopathy. ? CHEST/RESPIRATORY SYSTEM Normal respiratory effort and able to speak in complete sentences. ?Clear to auscultation bilaterally. ?No crackles, rales, rhonchi, wheezes heard. CARDIAC SYSTEM Mild tachycardic?S1 and S2 heard no murmurs. 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 No deformities noted. ?No synovitis noted to the MCPs, PIPs or DIPs. ?No tenderness to palpation of these joints. Wrists: ?Full range of motion at the wrists without pain. ?No tenderness to palpation or synovitis noted to the wrists. Elbows: Full range of motion without pain. No tenderness, weakness, swelling, increased warmth or erythema. Shoulders: Full range of motion without pain. No tenderness, weakness, swelling, increased warmth or erythema. Hips: Full range of motion without pain. Hip bursa: No tenderness to palpation Knees: ?Full range of motion. ?No tenderness, swelling, increased warmth or erythema.?No effusion or crepitations Ankles: Full range of motion. ?No tenderness, swelling, increased warmth or erythema.? Feet: ?Negative squeeze test. ?No tenderness to palpation or swelling of the MTPs. Tender points:?No tenderness to palpation of the bilateral trapezius, supraspinatus, greater trochanters, anterior costochondral junctions, bilateral gluteal areas, bilateral suboccipital muscle insertions SKIN Skin intact without rashes. Results Reviewed Results Reviewed: Laboratory Tests 05/31/24 08:50 WBC 8.6 RBC 4.52 L Hgb 14.0 Hct 41.0 L Plt Count 355 ESR 5 Sodium 141 Potassium 4.2 Chloride 107 Carbon Dioxide 25 BUN 13 Creatinine 0.79 AST 49 H ALT 53 H C-Reactive Protein 0.12 Total Protein 7.3 Albumin 4.3 Immunology labs 12/29/23 15:17 Rheumatoid Factor 25.7 H Cycl Citrul Peptide IgG <16 HLA-B27 Negative Laboratory Tests 12/29/23 15:17 Hepatitis A IgM Ab Nonreactive Hep Bs Antigen Negative Hep Bs Antibody NONREACTIVE Hep B Core Total Ab Nonreactive Hepatitis C Ab (EIA) Nonreactive Assessment & Plan Assessment & Plan (1) Seropositive rheumatoid arthritis: Comment: 12/2023 +RF/-CCP Methotrexate 01/2024 Code(s): M05.9 - Rheumatoid arthritis with rheumatoid factor, unspecified Category: Medical Plan: #Seropositive RA Patient with seropositive rheumatoid arthritis today for follow up. Doing well on methotrexate 15 mg however is noticing about 70% improvement in his joints. Of note he has worsening LFTs after starting methotrexate. Patient will repeat his blood work in 2 weeks. If worsening we will need to switch his methotrexate to another medication. For now we will increase the methotrexate to 20 mg to see if there is any additional efficacy from this Plan - Methotrexzte 20mg weekly, split dosing - Folic acid 1mg daily - Repeat CMP in 2 weeks - RTC 4 months - Labs before visit: CBC, CMP, ESR, CRP, hepatitis panel, T spot (2) Encounter for methotrexate monitoring: Code(s): Z51.81 - Encounter for therapeutic drug level monitoring; Z79.631 - adjunct faculty for medical terminology (current) use of antimetabolite agent Category: Medical Plan: #Long-term Current Use of Methotrexate Discussed with patient the benefits and risks of methotrexate for managing their rheumatic condition Benefits include reduced pain, reduced mortality, maintenance of remission and reduction of flares Risks include oral ulcers, photosensitivity, hepatotoxicity, hematologic toxicity, pneumonitis, flu-like symptoms (especially day after administration), nodulosis, lymphomas ? Limit alcohol and avoid Bactrim ? Monitoring: ?CBC, BMP, LFTs every 3-4 months and hepatitis serologies as needed Plan I spent 34 minutes reviewing the record and labs, taking a history, examining the patient, discussing the treatment plan, ordering diagnostic work up and documenting in the medical record Orders: Orders Comprehensive Met. Panel 2 Weeks M05.9 - Rheumatoid arthritis with rheumatoid factor, unspecified, R74.01 - Elevation of levels of liver transaminase levels, Z51.81 - Encounter for therapeutic drug level monitoring, Z79.631 - [facility] (current) use of antimetabolite agent Hepatitis A,B,C Profile 4 Months M05.9 - Rheumatoid arthritis with rheumatoid factor, unspecified, Z51.81 - Encounter for therapeutic drug level monitoring, Z79.631 - adjunct faculty for medical terminology (current) use of antimetabolite agent Complete Blood Count Auto Diff 4 Months M05.9 - Rheumatoid arthritis with rheumatoid factor, unspecified, Z51.81 - Encounter for therapeutic drug level monitoring, Z79.631 - adjunct faculty for medical terminology (current) use of antimetabolite agent Comprehensive Met. Panel 4 Months M05.9 - Rheumatoid arthritis with rheumatoid factor, unspecified, Z51.81 - Encounter for therapeutic drug level monitoring, Z79.631 - [facility] (current) use of antimetabolite agent C Reactive Protein 4 Months M05.9 - Rheumatoid arthritis with rheumatoid factor, unspecified, Z51.81 - Encounter for therapeutic drug level monitoring, Z79.631 - adjunct faculty for medical terminology (current) use of antimetabolite agent Erythrocyte Sedimentation Rate 4 Months M05.9 - Rheumatoid arthritis with rheumatoid factor, unspecified, Z51.81 - Encounter for therapeutic drug level monitoring, Z79.631 - adjunct faculty for medical terminology (current) use of antimetabolite agent T Spot TB 4 Months M05.9 - Rheumatoid arthritis with rheumatoid factor, unspecified, Z51.81 - Encounter for therapeutic drug level monitoring, Z79.631 - adjunct faculty for medical terminology (current) use of antimetabolite agent Medications: Changed From methotrexate sodium Take 4 tablets every week for 4 weeks then 6 tablets every week. 15 mg (6 x 2.5 mg) PO QWEEK 90 tabs 1RF M05.9 - Rheumatoid arthritis with rheumatoid factor, unspecified To methotrexate sodium Take 8 tablets once a week: 4 in the AM and 4 in the PM 20 mg (8 x 2.5 mg) PO QWEEK 90 tabs 1RF M05.9 - Rheumatoid arthritis with rheumatoid factor, unspecified Refilled folic acid 1 mg PO DAILY 90 tabs 1RF M05.9 - Rheumatoid arthritis with rheumatoid factor, unspecified Coding Level of Care Code Est Pt Level 4 (42260) Complex EM visit Add On G2211 Diagnoses Seropositive rheumatoid arthritis M05.9 Encounter for methotrexate monitoring Z51.81; Z79.631
--- OUTSIDE RECORDS SUMMARY | 2024-06-04 15:53 | XMS_ITS | Encounter Summary ---
Author Organization [employer] Address [address] [facility] [address] [place] [address] Care Team Providers Care Office Messenger Helper Name Role Phone Name, Virgilio HAMLIN Primary Care Provider [phone] Reason for Visit * Reason Onset Date Comments med request 06/03/2024 Encounter Details Date Type Department Care Team ([facility] st Contact Info) Description 06/03/2024 Telephone [facility] [address] [place], [place] [id number] Name, MD Virgilio [address] [place] [address] med request Social History Tobacco Use Types Packs/Day Years [...] encounter Miscellaneous Notes * Telephone Encounter - Loridarylwillie Gutierres - 06/03/2024 11:33 AM EDT Tc from pt requesting medication nicotine polacrilex (Commit) 4 MG lozenge. Pt inform he use to take it and was helping him as he will like to get a script. Please return call to [phone] documented in this encounter Plan of Treatment Upcoming Encounters Date Type Department Care Team (Late st Contact Info) Description 06/25/2024 9:15 AM EDT Office Visit [facility] [address] [place] [phone] Name, MD Virgilio [address] [place] [phone] documented as of this encounter Visit Diagnoses Not on filedocumented in this encounter Care Teams Office Messenger Helper Relationship Specialty Start Date End Date Name, MD Virgilio [address] [place] [phone] PCP - General Internal Medicine 12/04/23 documented as of this encounter
--- OUTSIDE RECORDS SUMMARY | 2024-06-04 15:53 | XMS_ITS | Encounter Summary ---
Author Organization [employer] Address 75 [facility] 7t [place] [address] Care Team Providers Care Gambling Floor Supervisor Name Role Phone Name, Virgilio HAMLIN Primary Care Provider [phone] Encounter Details Date Type Department Care Team (Late st Contact Info) Description 05/31/2024 Orders Only GENERIC EXTERNAL DATA DEPARTMENT Provider, Generic External Data Social History Tobacco Use Types Packs/Day Years [...] EDT Office Visit [facility] [address] [place] [address] Name, MD Virgilio [address] [place] [address] documented as of this encounter Procedures Procedure Name Priority Date/Time Associated Diagnosis Comments CBC WITH AUTO DIFFERENTIAL Routine 05/31/2024 8:50 AM EDT SED RATE BY MODIFIED WESTERGREN Routine 05/31/2024 8:50 AM EDT C-REACTIVE PROTEIN Routine 05/31/2024 8: 50 AM EDT COMPREHENSIVE METABOLIC PANEL Routine 05/31/2024 8:50 AM EDT documented in this encounter Results * C-reactive Protein (05/31/2024 8:50 AM EDT) C Reactive Protein 0.12 < or = 0.50 mg/dL [facility] 05/31/2024 8:50 AM EDT 05/31/2024 8:50 AM EDT us Generic External Data Provider LAB BLOOD ORDERAB LES Final Result [facility] [address] [place] [address] [phone] * (ABNORMAL) Comprehensive Metabolic Panel (05/31/2024 8:50 AM EDT) Pathologist [facility] Sodium 141 135 - 145 mmol/L [facility] Potassium 4.2 3.3 - 5.1 mmol/L [facility] Chloride 107 96 - 108 mmol/L [facility] Carbon Dioxide 25 22 - 29 mmol/L [facility] Anion Gap 13 12 - 20 [facility] Urea Nitrogen (BUN) 13 9 - 16 mg/dL [facility] Creatinine, Serum 0.79 0.5 - 1.4 mg/dL [facility] Estimated Glomerular Filt Rate >60 [facility] Comment:Chronic Kidney Disea se: Estimated GFR < 60 mL/min/1.14d9Togvct Kidney Disease: Estimated GFR < 15 mL/min/1.73m2 Glucose 106 60 - 115 mg/dL [facility] Calcium 9.1 8.4 - 10.2 mg/dL [facility] Bilirubin, Total 0.6 0.0 - 1.0 mg/dL [facility] Aspartate Amino Transferase 49(H) 5 - 37 U/L [facility] Alanine Aminotransferase 53(H) 0 - 40 U/L [facility] Total Protein 7.3 6.5 - 8.0 g/dL [facility] Albumin Level 4.3 3.5 - 5.0 g/dL [facility] Alkaline Phosphatase 87 39 - 117 U/L [facility] 05/31/2024 8:50 AM EDT 05/31/2024 8:50 AM EDT us Generic External Data Provider LAB BLOOD ORDERAB LES Final Result [facility] [address] [place] [phone] * Sed Rate by Modified Jade (05/31/2024 8:50 AM EDT) Erythrocyte Sedimentation Rate 5 0 - 15 MM/HR [facility] Comment:Patients with polycy themia and many hemoglobin abnormalitiesmay have depressed sed rates whereas patients with anemiamay have elevated sed rates. 05/31/2024 8:50 AM EDT 05/31/2024 8:50 AM EDT us Generic External Data Provider LAB BLOOD ORDERAB LES Final Result [facility] [address] [place], [place] [phone] * (ABNORMAL) CBC auto differential (05/31/2024 8:50 AM EDT) White Blood Count 8.6 4.8 - 10.8 X10*3/uL [facility] Red Blood Count 4.52(L) 4.60 - 5.80 X10*6/uL [facility] Hemoglobin 14.0 14.0 - 18.0 g/dl [facility] Hematocrit 41.0(L) 42.0 - 52.0 % [facility] Mean Corpuscular Volume 90.7 80.0 - 98.0 fL [facility] Mean Corpuscular Hemoglobin 31.0 27.0 - 33.0 pg [facility] Mean Corpuscular HGB Conc 34.1 31.0 - 36.0 g/dl [facility] Red Cell Distribution Width 13.6 11.0 - 16.0 % [facility] Platelet Count 355 160 - 400 X10*3/uL [facility] Mean Platelet Volume 9.4 9.4 - 12.4 fL [facility] Neutrophils Percent Auto 50.3 45 - 73 % [facility] Imm Gran Pct Auto 0.2 0.0 - 0.4 % [facility] Lymphocytes Percent Auto 39.0 20 - 40 % [facility] Monocytes Percent Auto 8.6 2 - 11 % [facility] Eosinophils Percent Auto 0.9 0 - 4 % [facility] Basophils Percent Auto 1.0 0 - 2 % [facility] NRBC Pct Auto 0.0 0.0 - 0.2 /100WBC [facility] Neutrophils Absolute Auto 4.3 2.0 - 8.3 x10*3/uL [facility] Imm Gran Abs Auto 0.02 0.00 - 0.03 X10*3/uL [facility] Lymphocytes Absolute Auto 3.4 1.2 - 4.9 X10*3/uL [facility] Monocytes Absolute Auto 0.7 0.1 - 1.2 X10*3/uL [facility] Eosinophils Absolute Auto 0.1 0.0 - 0.4 X10*3/uL [facility] Basophils Absolute Auto 0.1 0.0 - 0.2 X10*3/uL [facility] NRBC Abs Auto 0.000 0.0 - 0.012 X10*3/uL [facility] 05/31/2024 8:50 AM EDT 05/31/2024 8:50 AM EDT us Generic External Data Provider LAB BLOOD ORDERAB LES Final Result Performing Organization Address [facility]/State/[facility] Co de Phone Number [facility] [address] [place] [address] [phone] documented in this encounter Visit Diagnoses Not on filedocumented in this encounter Care Teams Gambling Floor Supervisor Relationship Specialty Start Date End Date Name, MD Virgilio [address] [place] [phone] PCP - General Internal Medicine 12/04/23 documented as of this encounter
--- OUTSIDE RECORDS SUMMARY | 2024-06-04 15:53 | XMS_ITS | Encounter Summary ---
Author Organization [employer] Address 75 [facility] 7t [place] [address] Care Team Providers Care Continuous Process Rotary Drum Tanner Name Role Phone Name, Virgilio HAMLIN Primary Care Provider [phone] Encounter Details Date Type Department Care Team (Late st Contact Info) Description 05/31/2024 Population Health Risk Score [facility] (C3) Department [address] [facility] 7 [place] [phone] Provider, Population Health Generic Social History Tobacco Use Types Packs/Day Years [...] Description 06/25/2024 9:15 AM EDT Office Visit [facility] [address] [place] [address] Name, MD Virgilio [address] [place] [address] documented as of this encounter Visit Diagnoses Not on filedocumented in this encounter Care Teams Continuous Process Rotary Drum Tanner Relationship Specialty Start Date End Date NameVirgilio MD [address] [place] [phone] PCP - General Internal Medicine 12/04/23 documented as of this encounter
--- OUTSIDE RECORDS SUMMARY | 2024-06-04 15:53 | XMS_ITS | Encounter Summary ---
Author Organization [employer] Address 75 [facility] 7t [place] [address] Care Team Providers Care Publication Designer Name Role Phone Name, Virgilio HAMLIN Primary Care Provider [phone] Reason for Visit * Reason Onset Date Comments Med Refill 04/15/2024 Encounter Details Date Type Department Care Team (Late st Contact Info) Description 04/15/2024 Telephone [facility] [address] [place], [place] [phone] Name, MD Virgilio [address] [place] [address] Med Refill Social History Tobacco Use Types [...] 9:29 AM EST Medication was sent to [facility] on 12/19/23 #90 with 1 refill. * Telephone Encounter - Kerri Santana - 04/15/2024 9:11 AM EST TC from pt requesting medication refill. Medications needing refill : amLODIPine (Norvasc) 5 MG tablet To be sent to: [facility] documented in this encounter Plan of Treatment Upcoming Encounters Date Type Department Care Team (Late st Contact Info) Description 06/25/2024 9:15 AM EDT Office Visit [facility] [address] [place] [address] Name, MD Virgilio [address] [place] [address] documented as of this encounter Visit Diagnoses Not on filedocumented in this encounter Care Teams Publication Designer Relationship Specialty Start Date End Date Name, MD Virgilio [address] [place] [address] PCP - General Internal Medicine 12/04/23 documented as of this encounter
--- OUTSIDE RECORDS SUMMARY | 2024-06-04 15:53 | XMS_ITS | Clinical Summary ---
Author Organization [employer] Address 75 [facility] 7t [place] [address] Care Team Providers Care Coat Fitter Name Role Phone Name, Virgilio HAMLIN Primary Care Provider Allergies No known active allergies Medications Blood Pressure kit 1 each 2 times daily. 1 kit 09/27/19 24 2024 Active Additional Information Patient not taking.Reported on [...] AT BEDTIME 30 capsule 05/25/19 25 Active nicotine polacrilex (Commit) 4 MG lozenge Dissolve 1 lozenge (4 mg) in the mouth every 2 (two) hours if needed for smoking cessation. 100 lozenge 06/04/19 25 2024 Active naproxen (Naprosyn) 500 MG tablet TAKE 1 TABLET BY MOUTH TWICE DAILY FOR 10 DAYS 20 tablet 06/04/19 25 Active nicotine polacrilex (Commit) 4 MG lozenge Dissolve 1 lozenge (4 mg) in the mouth every 2 (two) hours if needed for smoking cessation. 100 lozenge 09/27/19 24 2024 Discontinued(R eorder (will not trigger notification to Pharmacy)) gabapentin (Neurontin) 300 MG capsuleIndicati ons:Rheumatoid arthritis, involving unspecified site, unspecified whether rheumatoid factor present (CMS/HCC) TAKE 1 CAPSULE BY MOUTH EVERY DAY AT BEDTIME 30 capsule 04/15/19 25 2024 Discontinued Active Problems Problem Noted Date Diagnosed [...] Encounters Date Type Department Care Team Description 06/03/2024 Refill [facility] [address] [place] [address] Virgilio Francisco MD 06/03/2024 Telephone [facility] [address] [place] [phone] Virgilio Francisco MD med request 05/31/2024 Population Health Risk Score [facility] () Department [address] [place] [phone] Provider, Population Health Generic 05/31/2024 Orders Only GENERIC EXTERNAL DATA DEPARTMENT Provider, Generic External Data 05/24/2024 Refill [facility] [address] [place] [address] Virgilio Francisco MD Rheumatoid arthritis, involving unspecified site, unspecified whether rheumatoid factor present ([facility]) 04/29/2024 Telephone [facility] [address] [place] [address] Do Schulz 04/27/2024 Refill [facility] [address] [place] [phone] Jaky Gaspar NP Generalized anxiety disorder 04/22/2024 Refill [facility] [address] [place] [phone] Romel Huber MD Mild intermittent asthma in adult without complication 04/20/2024 Refill [facility] [address] [place] [address] Virgilio Francisco MD Benign essential hypertension 04/15/2024 Telephone [facility] [address] [place] [address] Fatimah Painter MA 04/15/2024 Telephone [facility] [address] [place] [phone] Virgilio Francisco MD Appointment Request 04/15/2024 Telephone [facility] [address] [place] [phone] Virgilio Francisco MD Med Refill 04/15/2024 Refill [facility] [address] [place] [address] Jaky Gaspar NP Rheumatoid arthritis, involving unspecified site, unspecified whether rheumatoid factor present ([facility]) 04/04/2024 Refill [facility] [address] [place] [address] Virgilio Francisco MD Benign essential hypertension 03/07/2024 Patient Outreach [facility] [address] [place] [address] Name, MD Virgilio Pre-visit Planning (SDOH was completed on 09/07/2023) [...] Description 06/25/2024 9:15 AM EDT Office Visit [facility] [address] [place] [address] Name, MD Virgilio [address] [place] [address] Health Maintenance Due Date Last Done Comments [...] Procedure Name Priority Date/Time Associated Diagnosis Comments C-REACTIVE PROTEIN Routine 05/31/2024 8: 50 AM EDT COMPREHENSIVE METABOLIC PANEL Routine 05/31/2024 8:50 AM EDT SED RATE BY MODIFIED WESTERGREN Routine 05/31/2024 8:50 AM EDT CBC WITH AUTO DIFFERENTIAL Routine 05/31/2024 8:50 AM EDT PROPHYLAXIS - ADULT Routine 01/09/2024 1 0:00 AM EDT INTRAORAL - COMPLETE SERIES OF RADIOGRAPHIC IMAGES Routine 01/09/2024 10:00 AM EDT LIPID PANEL, STANDARD Routine 06/16/2023 10:12 AM EDT Hypercholesterolem ia from Last 3 Months or Most Recently Relevant to Health Maintenance Results * (ABNORMAL) CBC auto differential (05/31/2024 8:50 AM EDT) [facility] White Blood Count 8.6 4.8 - 10.8 X10*3/uL [facility] Red Blood Count 4.52(L) 4.60 - 5.80 X10*6/uL [facility] Hemoglobin 14.0 14.0 - 18.0 g/dl [facility] Hematocrit 41.0(L) 42.0 - 52.0 % [facility] Mean Corpuscular Volume 90.7 80.0 - 98.0 fL [facility] Mean Corpuscular Hemoglobin 31.0 27.0 - 33.0 pg [facility] Mean Corpuscular HGB Conc 34.1 31.0 - 36.0 g/dl [facility] Red Cell Distribution Width 13.6 11.0 - 16.0 % [facility] Platelet Count 355 160 - 400 X10*3/uL [facility] Mean Platelet Volume 9.4 9.4 - 12.4 fL [facility] Neutrophils Percent Auto 50.3 45 - 73 % [facility] Imm Gran Pct Auto 0.2 0.0 - 0.4 % [facility] Lymphocytes Percent Auto 39.0 20 - 40 % [facility] Monocytes Percent Auto 8.6 2 - 11 % [facility] Eosinophils Percent Auto 0.9 0 - 4 % [facility] Basophils Percent Auto 1.0 0 - 2 % [facility] NRBC Pct Auto 0.0 0.0 - 0.2 /100WBC [facility] Neutrophils Absolute Auto 4.3 2.0 - 8.3 x10*3/uL [facility] Imm Gran Abs Auto 0.02 0.00 - 0.03 X10*3/uL [facility] Lymphocytes Absolute Auto 3.4 1.2 - 4.9 X10*3/uL [facility] Monocytes Absolute Auto 0.7 0.1 - 1.2 X10*3/uL [facility] Eosinophils Absolute Auto 0.1 0.0 - 0.4 X10*3/uL [facility] Basophils Absolute Auto 0.1 0.0 - 0.2 X10*3/uL [facility] NRBC Abs Auto 0.000 0.0 - 0.012 X10*3/uL [facility] 05/31/2024 8:50 AM EDT 05/31/2024 8:50 AM EDT us Generic External Data Provider LAB BLOOD ORDERAB LES Final Result Performing Organization Address City/[facility]/ZIP Co de Phone Number [facility] [address] [place] [phone] * Sed Rate by Modified Westergren (05/31/2024 8:50 AM EDT) Erythrocyte Sedimentation Rate 5 0 - 15 MM/HR [facility] Comment:Patients with polycy themia and many hemoglobin abnormalitiesmay have depressed sed rates whereas patients with anemiamay have elevated sed rates. 05/31/2024 8:50 AM EDT 05/31/2024 8:50 AM EDT us Generic External Data Provider LAB BLOOD ORDERAB LES Final Result Performing Organization Address [facility] Co de Phone Number [facility] [address] [place] [phone] * C-reactive Protein (05/31/2024 8:50 AM EDT) C Reactive Protein 0.12 < or = 0.50 mg/dL [facility] 05/31/2024 8:50 AM EDT 05/31/2024 8:50 AM EDT Generic External Data Provider LAB BLOOD ORDERAB LES Final Result Performing Organization Address [facility] Co de Phone Number [facility] [address] [place] [phone] * (ABNORMAL) Comprehensive Metabolic Panel (05/31/2024 8:50 AM EDT) Sodium 141 135 - 145 mmol/L [facility] Potassium 4.2 3.3 - 5.1 mmol/L [facility] Chloride 107 96 - 108 mmol/L [facility] Carbon Dioxide 25 22 - 29 mmol/L [facility] Anion Gap 13 12 - 20 [facility] Urea Nitrogen (BUN) 13 9 - 16 mg/dL [facility] Creatinine, Serum 0.79 0.5 - 1.4 mg/dL [facility] Estimated Glomerular Filt Rate >60 [facility] Comment:Chronic Kidney Disea se: Estimated GFR < 60 mL/min/1.19y4Ntsdoz Kidney Disease: Estimated GFR < 15 mL/min/1.73m2 Glucose 106 60 - 115 mg/dL [facility] Calcium 9.1 8.4 - 10.2 mg/dL [facility] Bilirubin, Total 0.6 0.0 - 1.0 mg/dL [facility] Aspartate Amino Transferase 49(H) 5 - 37 U/L [facility] Alanine Aminotransferase 53(H) 0 - 40 U/L [facility] Total Protein 7.3 6.5 - 8.0 g/dL [facility] Albumin Level 4.3 3.5 - 5.0 g/dL [facility] Alkaline Phosphatase 87 39 - 117 U/L [facility] 05/31/2024 8:50 AM EDT 05/31/2024 8:50 AM EDT us Generic External Data Provider LAB BLOOD ORDERAB LES Final Result [facility] [address] [place] [phone] * Lipid Panel, Standard (06/16/2023 10:12 AM EDT) Triglycerides 97 <150 mg/dL [facility] Comment:Desirable Triglyceri de: less than 150 mg/dLBorderline High Triglyceride 150-199 mg/dLHigh Triglyceride: 200-499 mg/dLVery High Triglyceride: greater than or equal to 5OO mg/dL Cholesterol 149 <200 mg/dL [facility] Comment:Desirable Cholestero l: less than 200 mg/dLBorderline High Cholesterol: 200-239 mg/dLHigh Cholesterol: greater than 239 mg/dL LDL Cholesterol Calculated 69 <100 mg/dL [facility] Comment:Desirable LDL: less than 100 mg/dLNear Optimal/Above Optimal LDL: 110- 129 mg/dLBorderline High LDL: 130-159 mg/dLHigh LDL: 160-189 mg/dLVery High LDL: greater than or equal to 190 mg/dL HDL Cholesterol 61 >40 mg/dL [facility] Comment:Desirable HDL: great er than 40 mg/dL Note: This HDL assay may give artificially low results in patients with liver disease. Blood Venous blood specimen / Unknown 06/16/2023 10:12 AM EDT 06/16/2023 11:19 AM EDT us Gurinder Dawson MD LAB BLOOD ORDERABLES Final Resul t [facility] [address] [place] [phone] from Last 3 Months or Most Recently Relevant to Health Maintenance Insurance [facility] C3 DENTAL-[facility] MEDICAID STAND ADULT Care Teams Coat Fitter Relationship Specialty Start Date End Date Name, MD Virgilio [address] [place] [phone] PCP - General Internal Medicine 12/04/23
--- OUTSIDE RECORDS SUMMARY | 2024-06-04 15:53 | XMS_ITS | Encounter Summary ---
Author Organization [employer] Address 75 [facility] 7t [place] [address] Care Team Providers Care Director Product Development Name Role Phone Name, Virgilio HAMLIN Primary Care Provider [phone] Reason for Visit * Reason Onset Date Comments Med Refill 06/03/2024 Encounter Details Date Type Department Care Team (Late st Contact Info) Description 06/03/2024 Refill [facility] [address] [place], [place] [phone] Name, MD Virgilio [address] [place] [address] Social History Tobacco Use Types Packs/Day Years [...] Telephone Encounter - Yuliet Gabriel LPN - 06/03/2024 2:07 PM EDT Last seen 12/04/23. documented in this encounter Plan of Treatment Upcoming Encounters Date Type Department Care Team (Late st Contact Info) Description 06/25/2024 9:15 AM EDT Office Visit [facility] [address] [place] [address] Name, MD Virgilio [address] [place] [address] documented as of this encounter Visit Diagnoses Not on filedocumented in this encounter Care Teams Director Product Development Relationship Specialty Start Date End Date Virgilio Francisco MD [address] [place] [address] PCP - General Internal Medicine 12/04/23 documented as of this encounter
--- OUTSIDE RECORDS SUMMARY | 2024-06-04 15:53 | XMS_ITS | Encounter Summary ---
Author Organization [employer] Address 75 [facility] 7t [place] [address] Care Team Providers Care Coal Grader Name Role Phone Name, Virgilio HAMLIN Primary Care Provider [phone] Reason for Visit * Reason Comments Med Refill Encounter Details Date Type Department Care Team ([facility] st Contact Info) Description 05/24/2024 Refill [facility] [address] [place], [place] [phone] Name, MD Virgilio [address] [place] [address] Rheumatoid arthritis, involving unspecified site, unspecified whether rheumatoid factor present (CMS/[facility]) Social History Tobacco Use Types Packs/Day [...] Description 06/25/2024 9:15 AM EDT Office Visit [facility] [address] [place] [phone] NameVirgilio MD [address] [place] [phone] documented as of this encounter Visit Diagnoses Diagnosis Rheumatoid arthritis, involving unspecified site, unspecified whether rheumatoid factor present ([facility]) documented in this encounter Care Teams Coal Grader Relationship Specialty Start Date End Date Name, MD Virgilio [address] [place] [phone] PCP - General Internal Medicine 12/04/23 documented as of this encounter
--- OUTSIDE RECORDS SUMMARY | 2024-06-04 15:53 | XMS_ITS | Encounter Summary ---
Author Organization [employer] Address 75 [facility] 7t [place] [address] Care Team Providers Care Cube Cutter Name Role Phone Name, Virgilio HAMLIN Primary Care Provider [phone] Reason for Visit * Reason Onset Date Comments Appointment Request 04/15/2024 Encounter Details Date Type Department Care Team ([facility] st Contact Info) Description 04/15/2024 Telephone [facility] MED[facility] [address] [place], [place] [phone] Name, MD Virgilio [address] [place] [address] Appointment Request Social History Tobacco Use Types [...] Description 06/25/2024 9:15 AM EDT Office Visit [facility] [address] [place] [address] Name, MD Virgilio [address] [place] [address] documented as of this encounter Visit Diagnoses Not on filedocumented in this encounter Care Teams Cube Cutter Relationship Specialty Start Date End Date Name, MD Virgilio [address] [place] [address] PCP - General Internal Medicine 12/04/23 documented as of this encounter
== END 2024-06-04 14:05 | disposition home or self-care (01) ==
LOC: HO.RHE 13:29
PROVIDERS: PCP Internal Medicine Geriatric Medicine; Visit Provider Student in an Organized Health Care Education/Training Program
DX: M05.79 Rheumatoid arthritis with rheumatoid factor of multiple sites without organ or systems involvement (principal); Z51.81 Encounter for therapeutic drug level monitoring; Z79.631 Long term (current) use of antimetabolite agent
CPT/HCPCS: 99214

== ENCOUNTER → 2024-06-04 13:29 | Outpatient (BNVA) | payer MEDICAID, SELFPAY | PROVIDERS: PCP Internal Medicine Geriatric Medicine; Visit Provider Student in an Organized Health Care Education/Training Program | DX: M05.9 Rheumatoid arthritis with rheumatoid factor, unspecified (principal); I10 Essential (primary) hypertension; E78.5 Hyperlipidemia, unspecified; E03.9 Hypothyroidism, unspecified; R74.01 Elevation of levels of liver transaminase levels; Z51.81 Encounter for therapeutic drug level monitoring; Z79.631 Long term (current) use of antimetabolite agent; Z79.899 Other long term (current) drug therapy | CPT/HCPCS: 99212 ==

== ENCOUNTER 2024-06-19 09:01 | Outpatient (REF) | payer MEDICAID, SELFPAY ==
--- OUTSIDE RECORDS SUMMARY | 2024-06-19 09:51 | XMS_ITS | Encounter Summary ---
Author Organization [employer] Address 75 [facility] 7t [place] [address] Care Team Providers Care Wardrobe Manager Name Role Phone Name, Virgilio HAMLIN Primary Care Provider [phone] Reason for Visit * Reason Onset Date Comments Appointment Request 04/15/2024 Encounter Details Date Type Department Care Team ([facility] st Contact Info) Description 04/15/2024 Telephone [facility] MEDICINE [address] [place], [place] [phone] Name, MD Virgilio [address] [place] [address] Appointment Request Social History Tobacco Use Types [...] Care Team (Late st Contact Info) Description 06/19/2024 10:45 AM EDT Office Visit [facility] MED[facility] [address] [place] [address] Name, MD Virgilio [address] [place] [address] documented as of this encounter Visit Diagnoses Not on filedocumented in this encounter Care Teams Wardrobe Manager Relationship Specialty Start Date End Date Name, MD Virgilio [address] [place] [address] PCP - General Internal Medicine 12/04/23 documented as of this encounter
--- OUTSIDE RECORDS SUMMARY | 2024-06-19 09:51 | XMS_ITS | Encounter Summary ---
Author Organization [employer] Address [address] [facility] 7[address] [place] [address] Care Team Providers Care Validation Manager Name Role Phone Name, Virgilio HAMLIN Primary Care Provider [phone] Reason for Visit * Reason Onset Date Comments change appt 06/18/2024 Encounter Details Date Type Department Care Team (Late st Contact Info) Description 06/18/2024 Telephone [facility] [address] [place], [place] [phone] Fatimah Painter MA change appt Social History Tobacco Use Types Packs/Day Years [...] encounter Miscellaneous Notes * Telephone Encounter - Fatimah Painter MA - 06/18/2024 3:00 PM EDT T/c placed to pt due to provider having a meeting on 06/25/24 @ 9:15 am , [place] offer pt an appt for 06/19/24 @ 10:45am , pt agrees to come in to see pcp. documented in this encounter Plan of Treatment Upcoming Encounters Date Type Department Care Team (Late st Contact Info) Description 06/19/2024 10:45 AM EDT Office Visit [facility] [address] [place] [address] Name, MD Virgilio [address] [place] [address] documented as of this encounter Visit Diagnoses Not on filedocumented in this encounter Care Teams Validation Manager Relationship Specialty Start Date End Date Name, MD Virgilio [address] [place] [phone] PCP - General Internal Medicine 12/04/23 documented as of this encounter
--- OUTSIDE RECORDS SUMMARY | 2024-06-19 09:51 | XMS_ITS | Clinical Summary ---
Author Organization [employer] Address [address] [facility] 7t [place] [address] Care Team Providers Care Turning Machine Operator Helper Name Role Phone Name, Virgilio HAMLIN Primary Care Provider [phone] Allergies No known active allergies Medications Blood [...] Encounters Date Type Department Care Team Description 06/18/2024 Telephone [facility] [address] [place] [phone] Fatimah Painter MA change appt 06/03/2024 Refill [facility] [address] [place] [address] Virgilio Francisco MD 06/03/2024 Telephone [facility] [address] [place] [address] Virgilio Francisco MD med request 05/31/2024 Population Health Risk Score [facility] () Department [address] [place] [id number] Provider, Population Health Generic 05/31/2024 Orders Only GENERIC EXTERNAL DATA DEPARTMENT Provider, Generic External Data 05/24/2024 Refill [facility] [address] [place] [phone] Virgilio Francisco MD Rheumatoid arthritis, involving unspecified site, unspecified whether rheumatoid factor present ([facility]) 04/29/2024 Telephone [facility] [address] [place] [address] Do Schulz 04/27/2024 Refill [facility] [address] [place] [phone] Jaky Gaspar NP Generalized anxiety disorder 04/22/2024 Refill [facility] [address] [place] [phone] Romel Huber MD Mild intermittent asthma in adult without complication 04/20/2024 Refill [facility] [address] [place] [address] Virgilio Francisco MD Benign essential hypertension 04/15/2024 Telephone [facility] [address] [place] [phone] Fatimah Painter MA 04/15/2024 Telephone [facility] [address] [place] [address] Virgilio Francisco MD Appointment Request 04/15/[address] [address] Name, MD Virgilio Med Refill 04/15/2024 Refill [facility] [address] [place] [address] Jaky Gaspar NP Rheumatoid arthritis, involving unspecified site, unspecified whether rheumatoid factor present ([facility]) 04/04/2024 Refill [facility] [address] [place] [address] Name, MD Virgilio Benign essential hypertension from Last 3 Months Immunizations Name Administration [...] 8:50 AM EDT Sexual Orientation Straight 06/16/2023 8 :50 AM EDT Last Filed Vital Signs Vital [...] Description 06/19/2024 10:45 AM EDT Office Visit [facility] [address] [place] [address] Name, MD Virgilio [address] [place] [address] Health Maintenance Due Date Last Done Comments [...] Blood Count 8.6 4.8 - 10.8 X10*3/uL [facility] Red Blood Count 4.52(L) 4.60 - 5.80 X10*6/uL [facility] Hemoglobin 14.0 14.0 - 18.0 g/dl [facility] Hematocrit 41.0(L) 42.0 - 52.0 % [facility] Mean Corpuscular Volume 90.7 80.0 - 98.0 fL [facility] Mean Corpuscular Hemoglobin 31.0 27.0 - 33.0 pg [facility] Mean Corpuscular HGB Conc 34.1 31.0 - 36.0 g/dl [facility] Red Cell Distribution Width 13.6 11.0 - 16.0 % [facility] Platelet Count 355 160 - 400 X10*3/uL [facility] Mean Platelet Volume 9.4 9.4 - 12.4 fL [facility] Neutrophils Percent Auto 50.3 45 - 73 % [facility] Imm Gran Pct Auto 0.2 0.0 - 0.4 % [facility] Lymphocytes Percent Auto 39.0 20 - 40 % [facility] Monocytes Percent Auto 8.6 2 - 11 % [facility] Eosinophils Percent Auto 0.9 0 - 4 % [facility] Basophils Percent Auto 1.0 0 - 2 % [facility] NRBC Pct Auto 0.0 0.0 - 0.2 /100WBC [facility] Neutrophils Absolute Auto 4.3 2.0 - 8.3 x10*3/uL [facility] Imm Gran Abs Auto 0.02 0.00 - 0.03 X10*3/uL [facility] Lymphocytes Absolute Auto 3.4 1.2 - 4.9 X10*3/uL [facility] Monocytes Absolute Auto 0.7 0.1 - 1.2 X10*3/uL [facility] Eosinophils Absolute Auto 0.1 0.0 - 0.4 X10*3/uL [facility] Basophils Absolute Auto 0.1 0.0 - 0.2 X10*3/uL [facility] NRBC Abs Auto 0.000 0.0 - 0.012 X10*3/uL [facility] 05/31/2024 8:50 AM EDT 05/31/2024 8:50 AM EDT us Generic External Data Provider LAB BLOOD ORDERAB LES Final Result Performing Organization Address [facility]/ZIP Co de Phone Number [facility] [address] [place] [phone] * Sed Rate by Modified Westergren (05/31/2024 8:50 AM EDT) Erythrocyte Sedimentation Rate 5 0 - 15 MM/HR [facility] Comment:Patients with polycy themia and many hemoglobin abnormalitiesmay have depressed sed rates whereas patients with anemiamay have elevated sed rates. 05/31/2024 8:50 AM EDT 05/31/2024 8:50 AM EDT us Generic External Data Provider LAB BLOOD ORDERAB LES Final Result Performing Organization Address [facility] Co de Phone Number [facility] [address] [place] [phone] * C-reactive Protein (05/31/2024 8:50 AM EDT) Pathologist [facility] C Reactive Protein 0.12 < or = 0.50 mg/dL [facility] 05/31/2024 8:50 AM EDT 05/31/2024 8:50 AM EDT us Generic External Data Provider LAB BLOOD ORDERAB LES Final Result Performing Organization Address [facility] Co de Phone Number [facility] [address] [place] [address] [phone] * (ABNORMAL) Comprehensive Metabolic Panel (05/31/2024 8:50 AM EDT) Pathologist [facility] Sodium 141 135 - 145 mmol/L [facility] Potassium 4.2 3.3 - 5.1 mmol/L [facility] Chloride 107 96 - 108 mmol/L [facility] Carbon Dioxide 25 22 - 29 mmol/L [facility] Anion Gap 13 12 - 20 [facility] Urea Nitrogen (BUN) 13 9 - 16 mg/dL [facility] Creatinine, Serum 0.79 0.5 - 1.4 mg/dL [facility] Estimated Glomerular Filt Rate >60 [facility] Comment:Chronic Kidney Disea se: Estimated GFR < 60 mL/min/1.21c7Stohvo Kidney Disease: Estimated GFR < 15 mL/min/1.73m2 Glucose 106 60 - 115 mg/dL [facility] Calcium 9.1 8.4 - 10.2 mg/dL [facility] Bilirubin, Total 0.6 0.0 - 1.0 mg/dL [facility] Aspartate Amino Transferase 49(H) 5 - 37 U/L [facility] Alanine Aminotransferase 53(H) 0 - 40 U/L [facility] Total Protein 7.3 6.5 - 8.0 g/dL [facility] Albumin Level 4.3 3.5 - 5.0 g/dL [facility] Alkaline Phosphatase 87 39 - 117 U/L [facility] 05/31/2024 8:50 AM EDT 05/31/2024 8:50 AM EDT us Generic External Data Provider LAB BLOOD ORDERAB LES Final Result [facility] [address] [place] [phone] * Lipid Panel, Standard (06/16/2023 10:12 AM EDT) Triglycerides 97 <150 mg/dL [facility] Comment:Desirable Triglyceri de: less than 150 mg/dLBorderline High Triglyceride 150-199 mg/dLHigh Triglyceride: 200-499 mg/dLVery High Triglyceride: greater than or equal to 5OO mg/dL Cholesterol 149 <200 mg/dL [facility] Comment:Desirable Cholestero l: less than 200 mg/dLBorderline High Cholesterol: 200-239 mg/dLHigh Cholesterol: greater than 239 mg/dL LDL Cholesterol Calculated 69 <100 mg/dL [facility] Comment:Desirable LDL: less than 100 mg/dLNear Optimal/Above Optimal LDL: 110- 129 mg/dLBorderline High LDL: 130-159 mg/dLHigh LDL: 160-189 mg/dLVery High LDL: greater than or equal to 190 mg/dL HDL Cholesterol 61 >40 mg/dL [facility] Comment:Desirable HDL: great er than 40 mg/dL Note: This HDL assay may give artificially low results in patients with liver disease. Blood Venous blood specimen / Unknown 06/16/2023 10:12 AM EDT 06/16/2023 11:19 AM EDT us Gurinder Dawson MD LAB BLOOD ORDERABLES Final Resul t [facility] [address] [place] [phone] [phone] from Last 3 Months or Most Recently Relevant to Health Maintenance Insurance [facility] C3 DENTAL-[facility] MEDICAID STAND ADULT Care Teams Turning Machine Operator Helper Relationship Specialty Start Date End Date Name, MD Virgilio [address] [place] [phone] PCP - General Internal Medicine 12/04/23
--- OUTSIDE RECORDS SUMMARY | 2024-06-19 09:51 | XMS_ITS | Encounter Summary ---
Author Organization [employer] Address [address] [facility] 7[address] [place] [address] Care Team Providers Care Hole Digger Truck Driver Name Role Phone Name, Virgilio HAMLIN Primary Care Provider [phone] Reason for Visit * Reason Onset Date Comments Med Refill 04/15/2024 Encounter Details Date Type Department Care Team (Late st Contact Info) Description 04/15/2024 Telephone [facility] [address] [place], [place] [phone] Name, MD Virgilio [address] [place] [address] Med Refill Social History Tobacco Use Types [...] 9:29 AM EST Medication was sent to [facility] on 12/19/23 #90 with 1 refill. * Telephone Encounter - Kerri Santana - 04/15/2024 9:11 AM EST TC from pt requesting medication refill. Medications needing refill : amLODIPine (Norvasc) 5 MG tablet To be sent to: [facility] documented in this encounter Plan of Treatment Upcoming Encounters Date Type Department Care Team (Late st Contact Info) Description 06/19/2024 10:45 AM EDT Office Visit [facility] [address] [place] [phone] Name, MD Virgilio [address] [place] [address] documented as of this encounter Visit Diagnoses Not on filedocumented in this encounter Care Teams Hole Digger Truck Driver Relationship Specialty Start Date End Date Name, MD Virgilio [address] [place] [phone] PCP - General Internal Medicine 12/04/23 documented as of this encounter
[2024-06-19 10:03] LABS: Alanine Aminotransferase 50 U/L (0-40); Albumin Level 4.4 g/dL (3.5-5.0); Alkaline Phosphatase 89 U/L (39-117); Anion Gap 10 (12-20); Aspartate Amino Transferase 38 U/L (5-37); Bilirubin Total 0.4 mg/dL (0.0-1.0); Blood Urea Nitrogen 12 mg/dL (9-16); Calcium 9.2 mg/dL (8.4-10.2); Carbon Dioxide 28 mmol/L (22-29); Chloride 108 mmol/L (96-108); Estimated Glomerular Filt Rate > 60; Glucose Random 86 mg/dL (60-115); Sodium 142 mmol/L (135-145); Total Protein 7.1 g/dL (6.5-8.0)
== END 2024-06-19 09:02 | disposition home or self-care (01) ==
LOC: HO.LAB 09:01
PROVIDERS: PCP Internal Medicine Geriatric Medicine; Visit Provider Student in an Organized Health Care Education/Training Program
DX: R74.01 Elevation of levels of liver transaminase levels (principal); M05.9 Rheumatoid arthritis with rheumatoid factor, unspecified; Z51.81 Encounter for therapeutic drug level monitoring; Z79.631 Long term (current) use of antimetabolite agent
CPT/HCPCS: 36415; 80053

== ENCOUNTER 2024-07-23 08:56 | Outpatient (REF) | payer MEDICAID, SELFPAY ==
--- OUTSIDE RECORDS SUMMARY | 2024-07-23 09:33 | XMS_ITS | Clinical Summary ---
Author Organization [employer] Address [address] [place] [address] Care Team Providers Care Junior Administrative Assistant Name Role Phone Name, Virgilio HAMLIN Primary Care Provider [phone] Allergies No known active allergies Medications Blood Pressure kit 1 each 2 times daily. 1 kit 09/27/19 24 2024 Active Additional Information Patient not taking.Reported on 01/09/2024 Aspirin Low Dose 81 MG EC tabletIndicatio [...] WHEEZING 18 g 3 04/23/19 25 Active methotrexate 2.5 MG tablet TAKE 8 TABLETS BY MOUTH ONCE A WEEK ON THE SAME DAY (4 TABLETS IN THE MORNING & 4 TABLETS IN THE EVENING) 06/05/19 25 Active folic acid (Folvite) 1 MG tablet Take 1 tablet by mouth Once per day. 04/23/19 25 Active predniSONE (Deltasone) 5 MG tablet TAKE 3 TABLETS BY MOUTH EVERY DAY FOR 7 DAYS, THEN DECREASE TO 2 TABLETS EVERY DAY FOR 7 DAYS, THEN DECREASE TO 1 TABLET EVERY DAY FOR FOURTEEN DAYS 12/29/19 24 Active varenicline (Chantix) 1 MG tablet Take 1 tablet (1 mg) by mouth 2 times daily. Take with full glass of water. 56 tablet 3 06/20/19 25 Active buPROPion XL (Wellbutrin XL) 150 MG 24 hr tabletIndicatio ns:Generalized anxiety disorder TAKE 1 TABLET BY MOUTH EVERY MORNING. DO NOT BREAK, CRUSH, DISSOLVE OR CHEW 30 tablet 06/26/19 25 Active naproxen (Naprosyn) 500 MG tablet TAKE 1 TABLET BY MOUTH TWICE DAILY FOR 10 DAYS 20 tablet 06/26/19 25 Active nicotine polacrilex (Commit) 4 MG lozenge DISSOLVE 1 LOZENGE BY MOUTH EVERY 2 HOURS NEEDED FOR SMOKING CESSATION 72 lozenge 06/26/19 25 Active gabapentin (Neurontin) 300 MG capsuleIndicati ons:Rheumatoid arthritis, involving unspecified site, unspecified whether rheumatoid factor present (CMS/HCC) TAKE 1 CAPSULE BY MOUTH EVERY DAY AT BEDTIME 30 capsule 06/26/19 25 Active atorvastatin (Lipitor) 20 MG tabletIndicatio ns:Hypercholest erolemia TAKE 1 TABLET BY MOUTH EVERY DAY 90 tablet 1 06/27/19 25 Active lisinopril 10 MG tabletIndicatio ns:Benign essential hypertension TAKE 1 TABLET BY MOUTH EVERY DAY 90 tablet 1 06/27/19 25 Active levothyroxine (Synthroid, Levoxyl) 50 MCG tabletIndicatio ns:Hypothyroidi sm, unspecified type TAKE 1 TABLET BY MOUTH EVERY DAY IN THE MORNING BEFORE BREAKFAST 90 tablet 1 06/27/19 25 Active levothyroxine (Synthroid, Levoxyl) 50 MCG tabletIndicatio ns:Hypothyroidi sm, unspecified type TAKE 1 TABLET BY MOUTH EVERY DAY IN THE MORNING BEFORE BREAKFAST 90 tablet 1 12/19/19 24 2024 Discontinued lisinopril 10 MG tabletIndicatio ns:Benign essential hypertension TAKE 1 TABLET BY MOUTH EVERY DAY 90 tablet 1 12/19/19 24 2024 Discontinued atorvastatin (Lipitor) 20 MG tabletIndicatio ns:Hypercholest erolemia TAKE 1 TABLET BY MOUTH EVERY DAY 90 tablet 1 12/19/19 24 2024 Discontinued buPROPion XL (Wellbutrin XL) 150 MG 24 hr tabletIndicatio ns:Generalized anxiety disorder TAKE 1 TABLET BY MOUTH EVERY MORNING. DO NOT BREAK, CRUSH, DISSOLVE OR CHEW 30 tablet 04/29/19 25 2024 Discontinued(R eorder (will not trigger notification to Pharmacy)) gabapentin (Neurontin) 300 MG capsuleIndicati ons:Rheumatoid arthritis, involving unspecified site, unspecified whether rheumatoid factor present (CMS/HCC) TAKE 1 CAPSULE BY MOUTH EVERY DAY AT BEDTIME 30 capsule 05/25/19 25 2024 Discontinued(R eorder (will not trigger notification to Pharmacy)) nicotine polacrilex (Commit) 4 MG lozenge Dissolve 1 lozenge (4 mg) in the mouth every 2 (two) hours if needed for smoking cessation. 100 lozenge 06/04/19 25 2024 Discontinued(R eorder (will not trigger notification to Pharmacy)) naproxen (Naprosyn) 500 MG tablet TAKE 1 TABLET BY MOUTH TWICE DAILY FOR 10 DAYS 20 tablet 06/04/19 25 2024 Discontinued(R eorder (will not trigger notification to Pharmacy)) Active Problems Problem Noted Date Diagnosed Date [...] Encounters Date Type Department Care Team Description 06/26/2024 Refill [facility] [address], [place] [phone] Name, MD Virgilio Hypercholesterolem ia; Benign essential hypertension; Hypothyroidism, unspecified type 06/25/2024 Refill [facility] [address], [place] [phone] NameVirgilio MD Generalized anxiety disorder; Rheumatoid arthritis, involving unspecified site, unspecified whether rheumatoid factor present (CMS/HCC) 06/19/2024 10:45 AM EDT Office Visit [facility] [address] [place] [address] NameVirgilio MD 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 (CMS/HCC) (Primary Dx); Tobacco dependence 06/19/2024 Travel 06/18/2024 Telephone [facility] [address] [place] [address] Fatimah Painter [place] change appt 06/03/2024 Refill [facility] [address] [place] [address] Virgilio Francisco MD 06/03/2024 Telephone [facility] [address] [place] [address] Virgilio Francisco MD med request 05/31/2024 Population Health Risk Score [facility] [address] [phone] Provider, Population Health Generic 05/31/2024 Orders Only GENERIC EXTERNAL DATA DEPARTMENT Provider, Generic External Data 05/24/2024 Refill [facility] [address] [place] [address] Virgilio Francisco MD Rheumatoid arthritis, involving unspecified site, unspecified whether rheumatoid factor present ([facility]) 04/29/2024 Telephone [facility] [address] [place] [address] Do Schulz 04/27/2024 Refill [facility] [address] [place] [address] Jaky Gaspar NP Generalized anxiety disorder from Last 3 Months Immunizations Name Administration Dates Next Due Influenza, seasonal, injectable, preservative fr ee 12/04/2023 Pneumococcal Conjugate PCV 20 12/04/2023 Tdap 06/19/2024 Social History Tobacco Use Types Packs/Day Years Used Date Smoking Tobacco: Every Day Cigarettes Passive Smoke Exposure: Past Smokeless Tobacco: Never Tobacco Cessation:Ready to Q uit: Not Asked; Counseling Given: Not Answered Alcohol Use Standard Drinks/Week Comments Yes 0 (1 standard drink = 0.6 oz pur e alcohol) Depression Answer Date Recorded Patient Health Questionnaire-9 Score 7 06/19/2024 Patient Health Questionnaire-9 Score 7 06/19/2024 Last PHQ-9: Questionnaire Data Not on file 0 06/19/2024 Housing Stability Answer Date Recorded What is [...] off services in your home? No 09/07/2023 Depression Answer Date Recorded Patient Health Questionnaire-2 Score 3 06/19/2024 Internet Access Answer Date Recorded Internet Access [...] Sign Reading Time Taken Comments Blood Pressure 123/81 06/19/2024 10:31 AM EDT Pulse 92 06/19/2024 10:31 AM EDT Temperature 36.9 ??C (98.4 ??F) 06/19/2024 10:31 AM E DT Respiratory Rate 23 06/19/2024 10:31 AM EDT Oxygen Saturation 98% 06/19/2024 10:31 AM EDT Inhaled Oxygen Concentration - - Weight 83.9 kg (185 lb) 06/19/2024 10:31 AM EDT Height 170.2 cm (5' 7 ) 06/19/2024 10:31 AM EDT Body Mass Index 28.98 06/19/2024 10:31 AM EDT Plan of Treatment Upcoming Encounters Date Type Department Care Team (Late st Contact Info) Description 10/09/2024 9:45 AM EDT Office Visit [facility] [address] [place] [address] Name, [place] [address] Health Maintenance Due Date Last Done Comments CT Colonography 1970 Colonoscopy 1970 Colorectal Cancer Screening 1970 Dental Oral Exam 1970 FIT DNA/Cologuard 1970 FIT 1970 FOBT 1970 HIV Screening 1970 Sigmoidoscopy 1970 Hepatitis C Screening 1988 Hepatitis B Vaccines (1 of 3 - 19+ 3-dose series) 1989 Zoster Vaccines (1 of 2) 2020 COVID-19 Vaccine (2023-2 5 season) 2023 Dental Prophylaxis 07/10/2024 01/09/2024 SDOH Screening 09/06/2024 09/07/2023 Dental X-Ray: Bitewings 01/09/2025 01/09/2024 Alcohol/Substance Use Screening 06/19/2025 06/19/2024 Depression Screening 06/19/2025 06/19/2024, 06/19/2024 Tobacco Screening 06/19/2025 06/19/2024 Dental X-Ray: Full Mouth 01/09/2027 01/09/2024 Lipid Panel 06/15/2028 06/16/2023 DTaP/Tdap/Td Vaccines (2 - T d or Tdap) 06/19/2034 06/19/2024 RSV Patients and Patients Aged 60 years or older (1 - 1-dose 75+ series) 2045 Influenza Vaccine Completed 12/04/2023 Pneumococcal Vaccine: 50+ Years Completed 12/04/2023 HIB Vaccines Aged Out No longer eligi [...] Procedure Name Priority Date/Time Associated Diagnosis Comments COMPREHENSIVE METABOLIC PANEL Routine 06/19/2024 9:12 AM EDT C-REACTIVE PROTEIN Routine 05/31/2024 8: [...] Relevant to Health Maintenance Results * (ABNORMAL) Comprehensive Metabolic Panel (06/19/2024 9:12 AM EDT) Only the most recent of2 resultswithin the time period is included. Sodium 142 135 - 145 mmol/L [facility] Potassium 4.0 3.3 - 5.1 mmol/L [facility] Chloride 108 96 - 108 mmol/L [facility] Carbon Dioxide 28 22 - 29 mmol/L [facility] Anion Gap 10(L) 12 - 20 [facility] Urea Nitrogen (BUN) 12 9 - 16 mg/dL [facility] Creatinine, Serum 0.77 0.5 - 1.4 mg/dL [facility] Estimated Glomerular Filt Rate >60 [facility] Comment:Chronic Kidney Disea se: Estimated GFR < 60 mL/min/1.31b3Orbegk Kidney Disease: Estimated GFR < 15 mL/min/1.73m2 Glucose 86 60 - 115 mg/dL [facility] Calcium 9.2 8.4 - 10.2 mg/dL [facility] Bilirubin, Total 0.4 0.0 - 1.0 mg/dL [facility] Aspartate Amino Transferase 38(H) 5 - 37 U/L [facility] Alanine Aminotransferase 50(H) 0 - 40 U/L [facility] Total Protein 7.1 6.5 - 8.0 g/dL [facility] Albumin Level 4.4 3.5 - 5.0 g/dL [facility] Alkaline Phosphatase 89 39 - 117 U/L [facility] 06/19/2024 9:12 AM EDT 06/19/2024 9:12 AM EDT us Generic External Data Provider LAB BLOOD ORDERAB LES Final Result [facility] [address] [place] [phone] * (ABNORMAL) CBC auto differential (05/31/2024 8:50 AM EDT) White Blood Count 8.6 4.8 - 10.8 X10*3/uL [facility] Red Blood Count 4.52(L) 4.60 - 5.80 X10*6/uL [facility] Hemoglobin 14.0 14.0 - 18.0 g/dl [facility] Hematocrit 41.0(L) 42.0 - 52.0 % [facility] Mean Corpuscular Volume 90.7 80.0 - 98.0 fL [facility] Mean Corpuscular Hemoglobin 31.0 27.0 - 33.0 pg [facility] Mean Corpuscular HGB Conc 34.1 31.0 - 36.0 g/dl [facility] Red Cell Distribution Width 13.6 11.0 - 16.0 % [facility] Platelet Count 355 160 - 400 X10*3/uL [facility] Mean Platelet Volume 9.4 9.4 - 12.4 fL [facility] Neutrophils Percent Auto 50.3 45 - 73 % [facility] Imm Gran Pct Auto 0.2 0.0 - 0.4 % [facility] Lymphocytes Percent Auto 39.0 20 - 40 % [facility] Monocytes Percent Auto 8.6 2 - 11 % [facility] Eosinophils Percent Auto 0.9 0 - 4 % [facility] Basophils Percent Auto 1.0 0 - 2 % [facility] NRBC Pct Auto 0.0 0.0 - 0.2 /100WBC [facility] Neutrophils Absolute Auto 4.3 2.0 - 8.3 x10*3/uL [facility] Imm Gran Abs Auto 0.02 0.00 - 0.03 X10*3/uL [facility] Lymphocytes Absolute Auto 3.4 1.2 - 4.9 X10*3/uL [facility] Monocytes Absolute Auto 0.7 0.1 - 1.2 X10*3/uL [facility] Eosinophils Absolute Auto 0.1 0.0 - 0.4 X10*3/uL [facility] Basophils Absolute Auto 0.1 0.0 - 0.2 X10*3/uL [facility] NRBC Abs Auto 0.000 0.0 - 0.012 X10*3/uL [facility] 05/31/2024 8:50 AM EDT 05/31/2024 8:50 AM EDT us Generic External Data Provider LAB BLOOD ORDERAB LES Final Result [facility] [address] [place] [phone] * Sed Rate by Modified Jade (05/31/2024 8:50 AM EDT) Erythrocyte Sedimentation Rate 5 0 - 15 MM/HR [facility] Comment:Patients with polycy themia and many hemoglobin abnormalitiesmay have depressed sed rates whereas patients with anemiamay have elevated sed rates. 05/31/2024 8:50 AM EDT 05/31/2024 8:50 AM EDT Generic External Data Provider LAB BLOOD ORDERAB LES Final Result Performing Organization Address City/[facility]/ZIP Co de Phone Number [facility] [address] [place] [phone] * C-reactive Protein (05/31/2024 8:50 AM EDT) C Reactive Protein 0.12 < or = 0.50 mg/dL [facility] 05/31/2024 8:50 AM EDT 05/31/2024 8:50 AM EDT Generic External Data Provider LAB BLOOD ORDERAB LES Final Result Performing Organization Address [facility] de Phone Number [facility] [address] [place] [phone] * Lipid Panel, Standard (06/16/2023 10:12 AM EDT) Triglycerides 97 <150 mg/dL [facility] Comment:Desirable Triglyceri de: less than 150 mg/dLBorderline High Triglyceride 150-199 mg/dLHigh Triglyceride: 200-499 mg/dLVery High Triglyceride: greater than or equal to 5OO mg/dL Cholesterol 149 <200 mg/dL [facility] Comment:Desirable Cholestero l: less than 200 mg/dLBorderline High Cholesterol: 200-239 mg/dLHigh Cholesterol: greater than 239 mg/dL LDL Cholesterol Calculated 69 <100 mg/dL [facility] Comment:Desirable LDL: less than 100 mg/dLNear Optimal/Above Optimal LDL: 110- 129 mg/dLBorderline High LDL: 130-159 mg/dLHigh LDL: 160-189 mg/dLVery High LDL: greater than or equal to 190 mg/dL HDL Cholesterol 61 >40 mg/dL [facility] Comment:Desirable HDL: great er than 40 mg/dL Note: This HDL assay may give artificially low results in patients with liver disease. Blood Venous blood specimen / Unknown 06/16/2023 10:12 AM EDT 06/16/2023 11:19 AM EDT us Gurinder Dawson MD LAB BLOOD ORDERABLES Final Resul t [facility] [address] [place] [phone] from Last 3 Months or Most Recently Relevant to Health Maintenance [facility] MEDICAID STAND ADULT Care Teams Junior Administrative Assistant Relationship Specialty Start Date End Date Name, MD Virgilio [address] [place] [phone] PCP - General Internal Medicine 12/04/23
--- OUTSIDE RECORDS SUMMARY | 2024-07-23 09:33 | XMS_ITS | Encounter Summary ---
Author Organization [employer] Address [address] [place] [address] Care Team Providers Care Campus Director Name Role Phone Name, Virgilio HAMLIN Primary Care Provider [phone] Reason for Visit * Reason Onset Date Comments Appointment Request 04/15/2024 Encounter Details Date Type Department Care Team ([facility] st Contact Info) Description 04/15/2024 Telephone [facility] [address] [place], [place] [phone] Name, MD Virgilio [address] [place] [address] Appointment Request Social History Tobacco Use Types [...] reschedule 03/14 appt with PCP. ( Office todd, f/u (PVP completed, no concerns.) documented in this encounter Plan of Treatment Upcoming Encounters Date Type Department Care Team (Late st Contact Info) Description 10/09/2024 9:45 AM EDT Office Visit [facility] [address] [place] [phone] Name, MD Virgilio [address] [place] [address] documented as of this encounter Visit Diagnoses Not on filedocumented in this encounter Care Teams Campus Director Relationship Specialty Start Date End Date Name, MD Virgilio [address] [place] [phone] PCP - General Internal Medicine 12/04/23 documented as of this encounter
--- OUTSIDE RECORDS SUMMARY | 2024-07-23 09:33 | XMS_ITS | Encounter Summary ---
Author Organization [employer] Address [address] [place] [address] Care Team Providers Care Earth Auger Operator Name Role Phone Name, Virgilio HAMLIN Primary Care Provider Reason for Visit * Reason Onset Date Comments Med Refill 04/15/2024 Encounter Details Date Type Department Care Team ([facility] st Contact Info) Description 04/15/[address] [facility] [address] [place], [place] [phone] Name, MD Virgilio [address] [place] [address] Med Refill Social History Tobacco Use Types [...] 9:29 AM EST Medication was sent to [facility] on 12/19/23 #90 with 1 refill. * Telephone Encounter - Kerri Santana - 04/15/2024 9:11 AM EST TC from pt requesting medication refill. Medications needing refill : amLODIPine (Norvasc) 5 MG tablet To be sent to: [facility] documented in this encounter Plan of Treatment Upcoming Encounters Date Type Department Care Team (Late st Contact Info) Description 10/09/2024 9:45 AM EDT Office Visit [facility] [address] [place] [phone] Name, MD Virgilio [address] [place] [phone] documented as of this encounter Visit Diagnoses Not on filedocumented in this encounter Care Teams Earth Auger Operator Relationship Specialty Start Date End Date Name, MD Virgilio [address] [place] [phone] PCP - General Internal Medicine 12/04/23 documented as of this encounter
[2024-07-23 10:04] LABS: Alanine Aminotransferase 30 U/L (0-40); Albumin Level 4.5 g/dL (3.5-5.0); Alkaline Phosphatase 90 U/L (39-117); Anion Gap 11 (12-20); Aspartate Amino Transferase 31 U/L (5-37); Bilirubin Total 0.7 mg/dL (0.0-1.0); Blood Urea Nitrogen 16 mg/dL (9-16); Calcium 9.1 mg/dL (8.4-10.2); Carbon Dioxide 27 mmol/L (22-29); Chloride 107 mmol/L (96-108); Estimated Glomerular Filt Rate > 60; Glucose Random 113 mg/dL (60-115); Potassium 3.7 mmol/L (3.3-5.1); Sodium 141 mmol/L (135-145); Total Protein 7.1 g/dL (6.5-8.0)
== END 2024-07-23 08:57 | disposition home or self-care (01) ==
LOC: HO.LAB 08:56
PROVIDERS: PCP Internal Medicine Geriatric Medicine; Visit Provider Student in an Organized Health Care Education/Training Program
DX: R74.01 Elevation of levels of liver transaminase levels (principal)
CPT/HCPCS: 36415; 80053

== ENCOUNTER 2024-10-15 09:24 | Outpatient (REF) | payer MEDICAID, SELFPAY ==
--- OUTSIDE RECORDS SUMMARY | 2024-10-15 09:51 | XMS_ITS | Encounter Summary ---
Author Organization [employer] Address [address] [place] [address] Care Team Providers Care Senior Etl Developer Name Role Phone Name, Virgilio HAMLIN Primary Care Provider [phone] Reason for Visit * Reason Comments Med Refill Encounter Details Date Type Department Care Team ([facility] st Contact Info) Description 10/10/2024 Refill [facility] [address] [place], [place] [phone] Name, MD Virgilio [address] [place] [address] Generalized anxiety disorder; Rheumatoid arthritis, involving unspecified site, unspecified whether rheumatoid factor present (CMS/[facility]) Social History Tobacco Use Types Packs/Day Years [...] housing situation today? I have otoniel silva 10/09/[address] you li ve. Do you have problems with any of the following? None of the above 10/09/2024 Food Insecurity Answer Date Recorded Within the past 12 months, y ou worried that your food would run out before you got money to buy more: Never True 10/09/2024 Within the past 12 months,th e food you bought just didn't last and you didn't have enough money to get more: Never True Transportation Answer Date Recorded In the past 12 months, has l ack of transportation kept you from medical appts, meetings, work or from getting things needed for daily living? No 10/09/2024 Utilities Answer Date Recorded In the past 12 months, has t he electric, gas, oil or water company threatened to shut off services in your home? No 10/09/2024 Depression Answer Date Recorded Patient Health Questionnaire-2 [...] as of this encounter Plan of Treatment Not on file documented as of this encounter Visit Diagnoses Diagnosis Generalized anxiety disorder Rheumatoid arthritis, involving unspecified site, unspecified whether rheumatoid factor present ([facility]) documented in this encounter Additional Health Concerns Assessment Noted Time PHQ-9 Depression Total Score: 7 06/20/19 25 10:35 AM EDT documented as of this encounter Care Teams Senior Etl Developer Relationship Specialty Start Date End Date Name, MD Virgilio [address] [place] [address] PCP - General Internal Medicine 12/04/23 documented as of this encounter
[2024-10-15 11:16] LABS: MANUAL DIFF FLAG NO
[2024-10-15 11:17] LABS: Hematocrit 41.4 % (42.0-52.0); Hemoglobin 14.1 g/dl (14.0-18.0); Imm Gran Abs Auto 0.01 X10*3/uL (0.00-0.03); Imm Gran Pct Auto 0.1 % (0.0-0.4); Lymphocytes Absolute Auto 2.9 X10*3/uL (1.2-4.9); Mean Corpuscular HGB Conc 34.1 g/dl (31.0-36.0); Mean Corpuscular Hemoglobin 29.9 pg (27.0-33.0); Mean Corpuscular Volume 87.9 fL (80.0-98.0); NRBC Abs Auto 0.000 X10*3/uL (0.0-0.012); NRBC Pct Auto 0.0 /100WBC (0.0-0.2); Platelet Count 356 X10*3/uL (160-400); Red Blood Count 4.71 X10*6/uL (4.60-5.80); White Blood Count 8.6 X10*3/uL (4.8-10.8)
[2024-10-15 11:47] LABS: Alanine Aminotransferase 32 U/L (0-40); Albumin Level 4.4 g/dL (3.5-5.0); Alkaline Phosphatase 78 U/L (39-117); Anion Gap 10 (12-20); Aspartate Amino Transferase 37 U/L (5-37); Blood Urea Nitrogen 12 mg/dL (9-16); Calcium 9.0 mg/dL (8.4-10.2); Carbon Dioxide 26 mmol/L (22-29); Chloride 111 mmol/L (96-108); Estimated Glomerular Filt Rate > 60; Potassium 3.6 mmol/L (3.3-5.1); Sodium 143 mmol/L (135-145); Total Protein 6.8 g/dL (6.5-8.0)
[2024-10-15 12:03] LABS: Prostate Specific Antigen 0.80 ng/mL (<0.05-4.0)
[2024-10-15 12:06] LABS: HBS Num1 0.00 mIU/mL (0-7.99); HBc Num1 0.06 S/CO (0.00-0.79); HBsAGNum1 0.38 S/CO (0.00-0.99); Hepatitis A Antibody IgM 0.14 Index (0-0.79); Hepatitis B Surface Antigen Negative (Negative); ~HepC Num1 0.07 S/CO (0.00-0.79); ~Hepatitis A Antibody IgM Nonreactive (Nonreactive); ~Hepatitis B Surface Antibody NONREACTIVE (Nonreactive); ~Hepatitis C Antibody Nonreactive (Nonreactive)
[2024-10-17 23:34] LABS: TS Negative Control Passed; TS Panel A 0; TS Panel B 0; TS Positive Control Passed; TSpotTB Negative (Negative)
== END 2024-10-15 09:25 | disposition home or self-care (01) ==
LOC: HO.HHCL 09:24
PROVIDERS: PCP Internal Medicine Geriatric Medicine; Referring Provider Student in an Organized Health Care Education/Training Program; Visit Provider Internal Medicine Geriatric Medicine
DX: Z12.5 Encounter for screening for malignant neoplasm of prostate (principal); Z51.81 Encounter for therapeutic drug level monitoring; Z11.59 Encounter for screening for other viral diseases; Z11.1 Encounter for screening for respiratory tuberculosis; M05.9 Rheumatoid arthritis with rheumatoid factor, unspecified; Z79.631 Long term (current) use of antimetabolite agent
CPT/HCPCS: 36415; 80053; 84153; 85025; 85652; 86140; 86481; 86704; 86706; 86709; 86803; 87340

== ENCOUNTER 2024-11-07 07:45 | Outpatient (AMB) | payer MEDICAID, SELFPAY ==
--- OUTSIDE RECORDS SUMMARY | 2024-11-07 07:49 | XMS_ITS | Clinical Summary ---
Author Organization [employer] Address [address] [facility] [address] [place] [address] Care Team Providers Care Floor Scrubber Name Role Phone Name, Virgilio HAMLIN Primary Care Provider [phone] Allergies No known active allergies Medications Ventolin HFA 108 (90 Base) MCG/ACT inhalerIndicatio ns:Mild intermittent asthma in adult without complication INHALE [...] DAY FOR FOURTEEN DAYS 12/29/19 24 Active naproxen (Naprosyn) 500 MG tablet TAKE 1 TABLET BY MOUTH TWICE DAILY FOR 10 DAYS 20 tablet 06/26/19 25 Active atorvastatin (Lipitor) 20 MG tabletIndication s:Hypercholester olemia TAKE 1 TABLET BY MOUTH EVERY DAY 90 tablet 1 06/27/19 25 Active lisinopril 10 MG tabletIndication s:Benign essential hypertension TAKE 1 TABLET BY MOUTH EVERY DAY 90 tablet 1 06/27/19 25 Active levothyroxine (Synthroid, Levoxyl) 50 MCG tabletIndication s:Hypothyroidism , unspecified type TAKE 1 TABLET BY MOUTH EVERY DAY IN THE MORNING BEFORE BREAKFAST 90 tablet 1 06/27/19 25 Active nicotine polacrilex (Commit) 4 MG lozenge DISSOLVE 1 LOZENGE BY MOUTH EVERY 2 HOURS NEEDED FOR SMOKING CESSATION 72 lozenge 08/06/19 25 Active aspirin (Aspirin Low Dose) 81 MG EC tabletIndication s:Benign essential hypertension Take 1 tablet (81 mg) by mouth in the morning. 90 tablet 09/12/19 25 Active buPROPion XL (Wellbutrin XL) 150 MG 24 hr tabletIndication s:Generalized anxiety disorder TAKE 1 TABLET BY MOUTH EVERY MORNING DO NOT BREAK, CRUSH, DISSOLVE OR CHEW 30 tablet 10/11/19 25 Active gabapentin (Neurontin) 300 MG capsuleIndicatio ns:Rheumatoid arthritis, involving unspecified site, unspecified whether rheumatoid factor present (CMS/HCC) TAKE 1 CAPSULE BY MOUTH AT BEDTIME 30 capsule 10/11/19 25 Active amLODIPine (Norvasc) 5 MG tabletIndication s:Benign essential hypertension TAKE 1 TABLET BY MOUTH EVERY DAY 90 tablet 1 10/29/19 25 Active varenicline (Chantix) 1 MG tablet TAKE 1 TABLET BY MOUTH TWICE DAILY WITH A FULL GLASS OF WATER 56 tablet 3 11/01/19 25 Active amLODIPine (Norvasc) 5 MG tabletIndication s:Benign essential hypertension TAKE 1 TABLET BY MOUTH EVERY DAY 90 tablet 1 04/22/19 25 025 Discontinued varenicline (Chantix) 1 MG tablet Take 1 tablet (1 mg) by mouth 2 times daily. Take with full glass of water. 56 tablet 3 06/20/19 25 025 Discontinued buPROPion XL (Wellbutrin XL) 150 MG 24 hr tabletIndication s:Generalized anxiety disorder TAKE 1 TABLET BY MOUTH EVERY MORNING. DO NOT BREAK, CRUSH, DISSOLVE OR CHEW 30 tablet 09/11/19 25 025 Discontinued gabapentin (Neurontin) 300 MG capsuleIndicatio ns:Rheumatoid arthritis, involving unspecified site, unspecified whether rheumatoid factor present (CMS/HCC) TAKE 1 CAPSULE BY MOUTH AT BEDTIME 30 capsule 09/14/19 25 025 Discontinued Active Problems Problem Noted [...] Encounters Date Type Department Care Team Description 10/31/2024 Refill [facility] [address] [place] [phone] Virgilio Francisco MD 10/27/2024 Refill [facility] [address] [place] [phone] Virgilio Francisco MD Benign essential hypertension 10/15/2024 Results Follow-Up [facility] [address] [place] [phone] Ariana Garrett MD PSA,Total 10/10/2024 Refill [facility] [address] [place] [address] Virgilio Francisco MD Generalized anxiety disorder; Rheumatoid arthritis, involving unspecified site, unspecified whether rheumatoid factor present (CMS/HCC) 10/09/2024 9:45 AM EDT Office Visit [facility] [address] [place] [phone] Virgilio Francisco MD Benign essential hypertension (Primary Dx); 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 (CMS/HCC); Encounter for screening for malignant neoplasm of colon; Screening for prostate cancer 10/09/2024 Travel 09/13/2024 Refill [facility] [address] [place] [phone] Virgilio Francisco MD Rheumatoid arthritis, involving unspecified site, unspecified whether rheumatoid factor present (CMS/HCC) 09/11/2024 Refill [facility] [address] [place] [address] Virgilio Francisco MD Benign essential hypertension 09/10/2024 Refill [facility] [address] [place] [address] Virgilio Francisco MD Generalized anxiety disorder 08/16/2024 Refill [facility] [address] [place] [address] Name, MD Virgilio Generalized anxiety disorder from Last 3 Months Immunizations Immunization Administration Dates Next Due Influenza, seasonal, injectable, [...] the past 12 months, has t he [employer], gas, oil or water company threatened to [...] Sign Reading Time Taken Comments Blood Pressure 138/82 10/09/2024 9:45 AM EDT Pulse 80 10/09/2024 9:45 AM EDT Temperature 37.1 C (98.7 F) 10/09/2024 9:45 AM EDT Respiratory Rate 14 10/09/2024 9:45 AM EDT Oxygen Saturation 98% 10/09/2024 9:45 AM EDT Inhaled Oxygen Concentration - - Weight 76.9 kg (169 lb 9.6 oz) 10/09/2024 9:45 A M EDT Height 170.2 cm (5' 7 ) 10/09/2024 9:45 AM EDT Body Mass Index 26.56 10/09/2024 9:45 AM EDT Plan of Treatment Health Maintenance Due Date Last Done Comments CT Colonography 1970 Colonoscopy 1970 Colorectal Cancer Screening 1970 Dental Oral Exam 1970 FIT DNA/Cologuard 1970 FIT 1970 FOBT 1970 HIV Screening 1970 Sigmoidoscopy 1970 Hepatitis B Vaccines (1 of 3 - 19+ 3-dose series) 1989 Zoster Vaccines (1 of 2) 2020 COVID-19 Vaccine (2023-2 5 season) 2023 Dental Prophylaxis 07/10/2024 01/09/2024 Influenza Vaccine (#1) 2024 12/04/2023 Dental X-Ray: Bitewings 01/09/2025 01/09/2024 Alcohol/Substance Use Screening 06/19/2025 06/19/2024 Depression Screening 06/19/2025 06/19/2024, 06/19/2024 Disability Screening 06/19/2025 06/19/2024 SDOH Screening 10/09/2025 10/09/2024 Tobacco Screening 10/09/2025 10/09/2024 Dental X-Ray: Full Mouth 01/09/2027 01/09/2024 Lipid Panel 06/15/2028 06/16/2023 DTaP/Tdap/Td Vaccines (2 - T d or Tdap) 06/19/2034 06/19/2024 RSV Patients and Patients Aged 60 years or older (1 - 1-dose 75+ series) 2045 Pneumococcal Vaccine: 50+ Years Completed 12/04/2023 Hepatitis C Screening Completed 10/15/2024 HIB Vaccines Aged Out No longer eligi [...] patient's age to complete this topic Meningococcal B Vaccine Aged Out No l onger eligible based on patient's age to complete [...] Procedure Name Priority Date/Time Associated Diagnosis Comments T-SPOT(R).TB Routine 10/15/2024 9:36 AM EDT HEPATITIS PANEL, GENERAL Routine 10/15/2024 9:36 AM EDT SED RATE BY MODIFIED WESTERGREN Routine 10/15/2024 9:36 AM EDT C-REACTIVE PROTEIN Routine 10/15/2024 9: 36 AM EDT COMPREHENSIVE METABOLIC PANEL Routine 10/15/2024 9:36 AM EDT CBC WITH AUTO DIFFERENTIAL Routine 10/15/2024 9:36 AM EDT PSA, TOTAL Routine 10/15/2024 9:36 AM EDT Screening for prostate cancer PROPHYLAXIS - ADULT Routine 01/09/2024 1 0:00 AM EDT INTRAORAL - COMPLETE SERIES OF RADIOGRAPHIC IMAGES Routine 01/09/2024 10:00 AM EDT LIPID PANEL, STANDARD Routine 06/16/2023 10:12 AM EDT Hypercholesterolem ia from Last 3 Months or Most Recently Relevant to Health Maintenance Results * T-SPOT??.TB (10/15/2024 9:36 AM EDT) T Spot TB Negative Negative [facility] Comment:A negative test resu lt does not exclude the possibilityof exposure to or infection with Mycobacteriumtuberculosis (M. tuberculosis). Patients with recentexposure to TB infected individuals exhibiting anegative T-SPOT.TB result should be considered forretesting within 6 weeks or if other relevant clinicalsymptoms indicate. Results from T-SPOT.TB testing mustbe used in conjunction with each individual'sepidemiological history, current medical status,and results of other diagnostic evaluations.The T-SPOT.TB test is qualitative and results arereported as positive, borderline, or negative, giventhat the test controls perform as expected. In linewith the Centers for Disease Control and Prevention's2010 recommendation to report quantitative measurementsalongside the qualitative result, the laboratoryprovides spot counts for informational purposes only.The T-SPOT.TB test should not be interpreted as aquantitative test. TS PANEL A 0 [facility] TS PANEL B 0 [facility] Negative Control Passed [facility] Positive Control Passed [facility] Comment:For additional infor matelvin, please refer tohttp://education.Warm Health/faq/PYZ448(This link is being provided for informational/educational purposes only.)THIS TEST WAS PERFORMED AT:[facility] [id number] [place] [id number] STONE MD,PHD 10/15/2024 9:36 AM EDT 10/15/2024 11:06 AM EDT us Generic External Data Provider LAB BLOOD ORDERAB LES Final Result [facility] [address] [place] [phone] * Hepatitis Panel, General (10/15/2024 9:36 AM EDT) Pathologist [facility] Hepatitis A IgM Nonreactive Nonreactive [facility] Comment:IgM antibodies to GUZMAN V not detected; does not exclude earlyacute or recovered HAV infection. ~Hepatitis B Surface Antibody NONREACTIVE Nonreactive [facility] Comment:Nonreactive: < 8.00 mIU/mL Hepatitis B Core Antibody Nonreactive Nonreactive [facility] Hepatitis C Antibody Nonreactive Nonreactive [facility] Comment:Antibodies to HCV no t detected; does not exclude early acuteHCV infection. Hepatitis B Surface Ag Negative Negative [facility] 10/15/2024 9:36 AM EDT 10/15/2024 11:17 AM EDT us Generic External Data Provider LAB BLOOD ORDERAB LES Final Result [facility] [address] [place] [address] [phone] * (ABNORMAL) CBC auto differential (10/15/2024 9:36 AM EDT) White Blood Count 8.6 4.8 - 10.8 X10*3/uL [facility] Red Blood Count 4.71 4.60 - 5.80 X10*6/uL [facility] Hemoglobin 14.1 14.0 - 18.0 g/dl [facility] Hematocrit 41.4(L) 42.0 - 52.0 % [facility] Mean Corpuscular Volume 87.9 80.0 - 98.0 fL [facility] Mean Corpuscular Hemoglobin 29.9 27.0 - 33.0 pg [facility] Mean Corpuscular HGB Conc 34.1 31.0 - 36.0 g/dl [facility] Red Cell Distribution Width 14.1 11.0 - 16.0 % [facility] Platelet Count 356 160 - 400 X10*3/uL [facility] Mean Platelet Volume 10.7 9.4 - 12.4 fL [facility] Neutrophils Percent Auto 56.0 45 - 73 % [facility] Imm Gran Pct Auto 0.1 0.0 - 0.4 % [facility] Lymphocytes Percent Auto 33.1 20 - 40 % [facility] Monocytes Percent Auto 8.2 2 - 11 % [facility] Eosinophils Percent Auto 1.0 0 - 4 % [facility] Basophils Percent Auto 1.6 0 - 2 % [facility] NRBC Pct Auto 0.0 0.0 - 0.2 /100WBC [facility] Neutrophils Absolute Auto 4.8 2.0 - 8.3 x10*3/uL [facility] Imm Gran Abs Auto 0.01 0.00 - 0.03 X10*3/uL [facility] Lymphocytes Absolute Auto 2.9 1.2 - 4.9 X10*3/uL [facility] Monocytes Absolute Auto 0.7 0.1 - 1.2 X10*3/uL [facility] Eosinophils Absolute Auto 0.1 0.0 - 0.4 X10*3/uL [facility] Basophils Absolute Auto 0.1 0.0 - 0.2 X10*3/uL [facility] NRBC Abs Auto 0.000 0.0 - 0.012 X10*3/uL [facility] 10/15/2024 9:36 AM EDT 10/15/2024 11:06 AM EDT us Generic External Data Provider LAB BLOOD ORDERAB LES Final Result [facility] [address] [place] [phone] * Sed Rate by Modified Jade (10/15/2024 9:36 AM EDT) Erythrocyte Sedimentation Rate 5 0 - 15 MM/HR [facility] Comment:Patients with polycy themia and many hemoglobin abnormalitiesmay have depressed sed rates whereas patients with anemiamay have elevated sed rates. 10/15/2024 9:36 AM EDT 10/15/2024 11:06 AM EDT us Generic External Data Provider LAB BLOOD ORDERAB LES Final Result Performing Organization Address [facility]/ZIP Co de Phone Number [facility] [address] [place] [phone] * C-reactive Protein (10/15/2024 9:36 AM EDT) C Reactive Protein 0.10 < or = 0.50 mg/dL [facility] 10/15/2024 9:36 AM EDT 10/15/2024 11:17 AM EDT us Generic External Data Provider LAB BLOOD ORDERAB LES Final Result Performing Organization Address [facility] Co de Phone Number [facility] [address] [place] [phone] * PSA,Total (10/15/2024 9:36 AM EDT) Pathologist [facility] Prostate Specific Antigen 0.80 <0.05 - 4.0 ng/mL [facility] Comment:PSA methodology: Danelle Cannon i ChemiluminescentMicroparticle Immunoassay (CMIA) Blood Venous blood specimen / Unknown 10/15/2024 9:36 AM EDT 10/15/2024 11:17 AM EDT us Virgilio Francisco MD LAB BLOOD ORDERABLES Final Resul t Performing Organization Address [facility] Co de Phone Number [facility] [address] [place] [phone] * (ABNORMAL) Comprehensive Metabolic Panel (10/15/2024 9:36 AM EDT) Sodium 143 135 - 145 mmol/L [facility] Potassium 3.6 3.3 - 5.1 mmol/L [facility] Chloride 111(H) 96 - 108 mmol/L [facility] Carbon Dioxide 26 22 - 29 mmol/L [facility] Anion Gap 10(L) 12 - 20 [facility] Urea Nitrogen (BUN) 12 9 - 16 mg/dL [facility] Creatinine, Serum 0.70 0.5 - 1.4 mg/dL [facility] Estimated Glomerular Filt Rate >60 [facility] Comment:Chronic Kidney Disea se: Estimated GFR < 60 mL/min/[id number] Kidney Disease: Estimated GFR < 15 mL/min/1.73m2 Glucose 106 60 - 115 mg/dL [facility] Calcium 9.0 8.4 - 10.2 mg/dL [facility] Bilirubin, Total 0.5 0.0 - 1.0 mg/dL [facility] Aspartate Amino Transferase 37 5 - 37 U/L [facility] Alanine Aminotransferase 32 0 - 40 U/L [facility] Total Protein 6.8 6.5 - 8.0 g/dL [facility] Albumin Level 4.4 3.5 - 5.0 g/dL [facility] Alkaline Phosphatase 78 39 - 117 U/L [facility] 10/15/2024 9:36 AM EDT 10/15/2024 11:17 AM EDT us Generic External Data Provider LAB BLOOD ORDERAB LES Final Result [facility] [address] [place] [phone] * Lipid Panel, Standard (06/16/2023 10:12 AM EDT) Triglycerides 97 <150 mg/dL [facility] Comment:Desirable Triglyceri de: less than 150 mg/dLBorderline High Triglyceride 150-199 mg/dLHigh Triglyceride: 200-499 mg/dLVery High Triglyceride: greater than or equal to 5OO mg/dL Cholesterol 149 <200 mg/dL [facility] Comment:Desirable Cholestero l: less than 200 mg/dLBorderline High Cholesterol: 200-239 mg/dLHigh Cholesterol: greater than 239 mg/dL LDL Cholesterol Calculated 69 <100 mg/dL [facility] Comment:Desirable LDL: less than 100 mg/dLNear Optimal/Above Optimal LDL: 110- 129 mg/dLBorderline High LDL: 130-159 mg/dLHigh LDL: 160-189 mg/dLVery High LDL: greater than or equal to 190 mg/dL HDL Cholesterol 61 >40 mg/dL [facility] Comment:Desirable HDL: great er than 40 mg/dL Note: This HDL assay may give artificially low results in patients with liver disease. Blood Venous blood specimen / Unknown 06/16/2023 10:12 AM EDT 06/16/2023 11:19 AM EDT us Gurinder Dawson MD LAB BLOOD ORDERABLES Final Resul t [facility] [address] [place] [address] [phone] from Last 3 Months or Most Recently Relevant to Health Maintenance Insurance [facility] C3 DENTAL-[facility] MEDICAID STAND ADULT Care Teams Floor Scrubber Relationship Specialty Start Date End Date Name, MD Virgilio [address] [place] [phone] PCP - General Internal Medicine 12/04/23
--- NOTE | 2024-11-07 07:56 | A.OFFVIS_ITS ---
Vital Signs 11/07/24 08:01 Height 5 ft 7 in Weight 173 lb 4.533 oz BMI 27.1 BP 124/86 Blood Pressure Location Lt brachial Position Sitting Pulse 78 Pulse Source Pulse Oximeter Pulse Oximetry (%) 98 Oxygen Delivery Method Room Air Intake Visit Reasons: follow up Intake Note: Patient presents for RA follow up. Computer Support Specialist Instructor Required: Yes Computer Support Specialist Instructor Language: Armored Car Guard And Driver Services: Computer Support Specialist Instructor Present Computer Support Specialist Instructor Name: Latoya [id number] Information Interpreted: non-clinical & clinical Allergies No Known Allergies Allergy (Verified 11/07/24 08:00) Medication List - Last Reconciled 11/07/24 by Isamar Richter MD amlodipine 5 mg PO DAILY aspirin 81 mg PO DAILY atorvastatin 20 mg PO DAILY bupropion HCl XL 150 mg PO QAM gabapentin 300 mg PO BEDTIME leflunomide 20 mg (2 x 10 mg) PO DAILY levothyroxine 50 mcg PO DAILY lisinopril 10 mg PO DAILY HPI Comments Details: Patient is a 53-year-old male with hypertension, hyperlipidemia, hypothyroidism on levothyroxine and depression who presents for follow-up for diagnosis of rheumatoid arthritis Interval History: Last seen 06/04/24 with me. - On methotrexate 15mg weekly and folic acid - Improved on methotrexate but had some residual joint pain - Increased Mtx 20mg weeky Since then - Worsening transaminitis - Methotrexate changed to leflunomide Today - On Leflunomide 20mg daily - Doing better - Still complaining of polyarticular joint pain especially his low back Rheumatologic History: Patient establish care 12/2023 after recently [place] the [place] that year. Diagnosed with RA at the age of 51 and was managed mainly with meloxicam. Patient is started on prednisone taper with plans to initiate methotrexate at following visit Current Rheumatology Medication(s): Leflunomide 20mg daily [facility] Medical History (Updated 06/19/24 @ 10:49 by Isamar Richter MD) Osteoarthritis of lower back Seropositive rheumatoid arthritis Asthma in adult without complication Generalized anxiety disorder Hypothyroidism Hypercholesterolemia Benign essential hypertension Tobacco dependence Pain in left knee Social History Household Members: Family Housing: House Alcohol intake: current Comment: Rare Patient Tobacco Use Status: Former Tobacco user Tobacco use type: Cigarette Cigarette Packs Per Day: 1 Years Smoked: 40 Review of Systems Const Details: Review of Systems Constitutional: Denies fever, chills, weight loss ENT: Denies vision changes, eye pain or eye redness, dental caries, dry mouth GI: Denies nausea, vomiting, diarrhea, abdominal pain, change in BM Pulm: Denies SOB, [place], hemoptysis, wheezing Cards: Denies chest pain, palpitations Skin: Denies Raynaud's, rash, nail changes, photosensitivity, FINISH GRINDER: Denies headaches, weakness, paresthesias, recurrent falls MSK: as per HPI All other systems reviewed and are unremarkable except noted above Physical Exam Exam Exam: Vital signs reviewed Physical Examination CONSTITUITIONAL Patient alert and cooperative. Well appearing and in no apparent painful distress MSK Hands * Right Hand: Able to make a fist. No swelling or tenderness to palpation of these joints. * Left Hand: Able to make a fist. No swelling or tenderness to palpation of these joints. * Herbedens nodes noted bilaterally Wrists * Right Wrist: Full ROM. 70 degrees of wrist flexion, 80 degrees of wrist extension. No swelling or TTP * Left Wrist: Full ROM. 70 degrees of wrist flexion, 80 degrees of wrist extension. No swelling or TTP Elbows * Right Elbow: Full ROM. No swelling or TTP. No TTP of the medial and lateral epicondyles * Left Elbow: Full ROM. No swelling or TTP. No TTP of the medial and lateral epicondyles Shoulders * Right shoulder: Full ROM. Discomfort with extremes of motion. No swelling no allen. No TTP of the AC joint, subacromial bursa or posterior shoulder * Left shoulder: Full ROM. Discomfort with extremes of motion. No swelling noted. No TTP of the AC joint, subacromial bursa or posterior shoulder Knees * Right knee: Full ROM. No swelling noted. TTP of knee joint line * Left knee: Full ROM. No swelling noted. TTP of knee joint line * Crepitations felt bilaterally Ankles * Right ankle: Good ankle dorsiflexion and plantar flexion. No swelling. No TTP of the ankle joint * Left ankle: Good ankle dorsiflexion and plantar flexion. No swelling. No TTP of the ankle joint Feet * Right foot: Negative squeeze test * Left foot: Negative squeeze test Spine * TTP of the low back seam stitcher points? * No tenderness to palpation of the bilateral trapezius, supraspinatus, anterior costochondral junctions, bilateral suboccipital muscle insertions SKIN No rashes Vital Signs: Last Vital Signs Pulse 78 11/07/24 08:01 BP 124/86 11/07/24 08:01 Pulse Ox 98 11/07/24 08:01 Oxygen Delivery Method Room Air 11/07/24 08:01 BMI result Body Mass Index 27.1 Results Reviewed Results Reviewed: Laboratory Tests 10/15/24 09:36 WBC 8.6 RBC 4.71 Hgb 14.1 Hct 41.4 L Plt Count 356 ESR 5 Sodium 143 Potassium 3.6 Chloride 111 H Carbon Dioxide 26 BUN 12 Creatinine 0.70 AST 37 ALT 32 C-Reactive Protein 0.10 Laboratory Tests 10/20/23 12/29/23 11:55 15:17 Rheumatoid Factor 30.3 H 25.7 H Cycl Citrul Peptide IgG <16 HLA-B27 Negative Laboratory Tests 10/15/24 09:36 Hepatitis A IgM Ab Nonreactive Hep Bs Antigen Negative Hep Bs Antibody NONREACTIVE Hep B Core Total Ab Nonreactive Hepatitis C Ab (EIA) Nonreactive TB Test (T-Spot) Com Negative XR bilateral shoulders 12/2023 FINDINGS (Right): No fracture. Glenohumeral and acromioclavicular alignment is anatomic with normal joint space. Mild acromioclavicular arthritis. No abnormal soft tissue calcifications. IMPRESSION: Mild acromioclavicular arthritis. FINDINGS (Left): No fracture. Glenohumeral and acromioclavicular alignment is anatomic with normal joint space. No abnormal soft tissue calcifications. IMPRESSION: No acute osseous abnormality XR SI Joints 12/2023 FINDINGS: Mild bilateral SI joint arthritis, with subchondral sclerosis/cysts marginating the SI joints.. Gas and stool projected over the pelvic bones, sacrum and coccyx limiting evaluation. In the nonobscured bones, no acute fracture seen. IMPRESSION: Mild bilateral SI joint osteoarthritis. XR Bilateral Hands/Wrists 12/2023 FINDINGS (Right): No fracture. Alignment is anatomic. Joint spaces are maintained. No erosions or soft tissue calcifications. IMPRESSION: No acute osseous abnormality FINDINGS (Left): No fracture. Alignment is anatomic. Mild fifth DIP joint space narrowing. Joint spaces otherwise are maintained. No erosions or soft tissue calcifications. IMPRESSION: Mild fifth DIP joint osteoarthritis XR Bilateral Feet 12/2023 FINDINGS (Left): No acute fracture. Alignment is anatomic. Mild degenerative arthritis in some of the interphalangeal joints of the toes.. No erosions. No abnormal soft tissue calcification. IMPRESSION: Mild osteoarthritis. FINDINGS (Right): No acute fracture. Alignment is anatomic. Mild degenerative arthritis in some of the interphalangeal joints of the toes. No erosions. No abnormal soft tissue calcification.. IMPRESSION: Mild degenerative arthritis. Assessment & Plan Assessment & Plan (1) Seropositive rheumatoid arthritis: Comment: 12/2023 +RF/-CCP Methotrexate 01/2024 Code(s): M05.9 - Rheumatoid arthritis with rheumatoid factor, unspecified Category: Medical Plan: #Seropositive RA Patient is a 53 year old with seropositive rheumatoid arthritis today for follow up. Doing well on leflunomide. LFTs normalized. Normalized inflammatory markers He is still complaining of some polyarticular joint pain but there is no significant active synovitis. His joint pain may be from OA and not underlying RA activity Plan - Leflunomide 20mg daily - RTC 4 months - Labs before visit: CBC, CMP, ESR, CRP (2) Polyarticular osteoarthritis: Code(s): M15.9 - Polyosteoarthritis, unspecified Plan: #Polyarticular OA Patient polyarticular osteoarthritis complicating his rheumatoid arthritis. At this time I think his joint pain complaints are related to osteoarthritis and not rheumatoid arthritis especially since his inflammatory markers have normalized, there is no further swelling or significant synovitis on examination Discussed with him about going to physical therapy for his back but declined Plan - Send to pain management (3) Encounter for monitoring leflunomide therapy: Code(s): Z51.81 - Encounter for therapeutic drug level monitoring; Z79.69 - care home (current) use of other immunomodulators and immunosuppressants Plan: #Long-term leflunomide Discussed with patient the benefits and risks of leflunomide for managing the rheumatic condition Benefits include: - Reduced pain, maintenance of remission and reduction of flares Risks include: - GI upset especially diarrhea, skin rash, cytopenias, hepatotoxicity, weight loss, neuropathy Leflunomide is highly teratogenic. Has a very long half-life. Needs cholestyramine washout if there is desire for Initiation: CBC, BMP, LFTs, hepatitis-B and C serologies every 2-4 weeks for 3 months Monitoring: CBC, BMP, LFTs, hepatitis B and C serologies Plan I spent 30 minutes reviewing the record and labs, taking a history, examining the patient, discussing the treatment plan, ordering diagnostic work up and documenting in the medical record Orders: Orders C Reactive Protein 4 Months Z79.899 - Other care home (current) drug therapy Complete Blood Count Auto Diff 4 Months Z79.899 - Other care home (current) drug therapy Comprehensive Met. Panel 4 Months Z79.899 - Other termite helper (current) drug therapy Erythrocyte Sedimentation Rate 4 Months Z79.899 - Other care home (current) drug therapy Referrals Pain Management Referral M47.9 - Spondylosis, unspecified Coding Level of Care Code Est Pt Level 4 (55413) Complex EM visit Add On G2211 Diagnoses Seropositive rheumatoid arthritis M05.9 Polyarticular osteoarthritis M15.9 Encounter for monitoring leflunomide therapy Z51.81; Z79.69
[2024-11-07 08:01] VITALS: BP 124/86; PULSE 78; O2SAT 98; BMI 27.1
== END 2024-11-07 08:32 | disposition home or self-care (01) ==
LOC: HO.RHES 07:46
PROVIDERS: PCP Internal Medicine Geriatric Medicine; Visit Provider Student in an Organized Health Care Education/Training Program
DX: M05.9 Rheumatoid arthritis with rheumatoid factor, unspecified (principal); M15.9 Polyosteoarthritis, unspecified; Z51.81 Encounter for therapeutic drug level monitoring; Z79.69 Long term (current) use of other immunomodulators and immunosuppressants
CPT/HCPCS: 99214

== ENCOUNTER → 2024-11-07 07:45 | Outpatient (BNVA) | payer MEDICAID, SELFPAY | PROVIDERS: PCP Internal Medicine Geriatric Medicine; Visit Provider Student in an Organized Health Care Education/Training Program | DX: M05.9 Rheumatoid arthritis with rheumatoid factor, unspecified (principal); M15.9 Polyosteoarthritis, unspecified; R74.01 Elevation of levels of liver transaminase levels; Z51.81 Encounter for therapeutic drug level monitoring; Z79.69 Long term (current) use of other immunomodulators and immunosuppressants | CPT/HCPCS: 99212 ==

== ENCOUNTER 2025-01-13 08:59 | Outpatient (REF) | payer MEDICARE, MEDICAID, SELFPAY ==
--- NOTE | ~2025-01-13 | XR_ITS ---
EXAMINATION: XR BILATERAL HIPS WITH AP PELVIS CLINICAL INFORMATION: M25.551 - Pain in right hip COMPARISON: None available. TECHNIQUE: Pelvis 1 view. Bilateral hips each 2 views. FINDINGS: Right hip: Right hip joint space is maintained. Corticated ossification superior to the greater trochanter, likely related remote injury. No visible acute fracture or dislocation. No abnormal soft tissue calcification. Left hip: Joint space is maintained. No visible acute fracture, dislocation or suspicious bony lesion. No abnormal soft tissue calcification. SI joints, symphysis pubis intact. No suspicious lytic or blastic lesions. XR/XR hip BI w PEL1V IMPRESSION: No acute osseous findings. Electronically signed by: Onofre Lopez MD 01/14/2025 11:42 AM EDT
--- NOTE | ~2025-01-13 | XR_ITS ---
EXAMINATION: X-ray lumbar spine CLINICAL INFORMATION: Spondylosis COMPARISON: None TECHNIQUE: Lumbar spine 5 views. FINDINGS: 5 lumbar type vertebral bodies. No evidence of acute fracture or spondylolisthesis. Multilevel disc degeneration, more prominent findings of moderate L5-S1 disc degeneration. Multilevel facet degeneration. No suspicious bony lesion. SI joints are symmetric. No abnormal soft tissue calcification.. XR/XR lumbar spine 4V min IMPRESSION: Lumbar spondylosis. L5-S1 moderate disc degeneration. Electronically signed by: Onofre Lopez MD 01/14/2025 12:53 PM EDT
== END 2025-01-13 09:00 | disposition home or self-care (01) ==
LOC: HO.XRAY 08:59
PROVIDERS: PCP Internal Medicine Geriatric Medicine; Referring Provider Student in an Organized Health Care Education/Training Program; Visit Provider Nurse Practitioner Family
DX: G89.29 Other chronic pain (principal); M47.817 Spondylosis without myelopathy or radiculopathy, lumbosacral region; M51.360 Other intervertebral disc degeneration, lumbar region with discogenic back pain only; M53.3 Sacrococcygeal disorders, not elsewhere classified; M25.551 Pain in right hip; M25.552 Pain in left hip
CPT/HCPCS: 72110; 73521; 99202

== ENCOUNTER 2025-01-13 08:59 | Outpatient (AMB) | payer MEDICARE, MEDICAID, SELFPAY ==
--- NOTE | 2025-01-13 09:03 | A.OFFVIS_ITS ---
Vital Signs 01/13/25 09:08 Height 5 ft 7 in Weight 166 lb 8 oz BMI 26.1 BP 118/77 Blood Pressure Location Lt brachial Position Sitting Pulse 99 Pulse Source Pulse Oximeter Pulse Oximetry (%) 97 Oxygen Delivery Method Room Air Intake Visit Reasons: Spondylosis Intake Note: Pain today 8 Stylist Apprentice Required: Yes Stylist Apprentice Language: Telegraph Office Telephone Clerk Services: Stylist Apprentice Present Stylist Apprentice Name: Ran #[id number] Information Interpreted: non-clinical & clinical Accompanied by: Other Relationship Allergies No Known Allergies Allergy (Verified 01/13/25 09:13) HPI Comments Details: The patient is a 54-year-old Tongan speaking male with seropositive rheumatoid arthritis presenting with chronic low back pain. The back pain has been pers istent for many years and is described as constant, aching, hurting, heavy, stabbing, sharp, and burning, with a severity of 9/10. The pain does not radiate to the legs and is exacerbated by bending down and lying down, but also with any movement and cold weather. He also reports multiple joint pain. The patient has not undergone any previous spine surgery or injections and has not engaged in full course of physical therapy, chiropractic therapy, or acupuncture for the lower back pain. He attempted physical therapy earlier this year but did not find it effective and was unable to complete the exercises. In April of this year, he had a physical therapy evaluation but did not attend any sessions. The patient has a history of rheumatoid arthritis, diagnosed at age 51, initially managed with meloxicam, then switched to methotrexate, and later to leflunomide due to transaminitis. He continues to experience polyarticular joint pain, particularly in the lower back, shoulders and knees. The patient also has a history of depression for which he sees a psychologist and is on medication. - Onset: Chronic, persisting for many years - Quality: Constant, aching, hurting, heavy, stabbing, sharp, burning - Severity: 9/10 constant with movements, walking, bending, supine position - Location: Lower back; multiple joint pain in shoulders, neck, elbows, hands, knees, hips, and feet - Radiation: Does not radiate to the legs - Exacerbating factors: Bending down, lying down, range of motion, cold weather - Affect: The patient is seeing a psychologist for depression related to chronic pain. - Analgesia: Currently taking gabapentin 300 mg once daily, pain level 9/10 - Adverse Effects: None reported - Activities of Daily Living: Pain increases with bending and lying down, affecting mobility - Aberrant Drug Related Behaviors: None reported [facility] Medical History Osteoarthritis of lower back Seropositive rheumatoid arthritis Asthma in adult without complication Generalized anxiety disorder Hypothyroidism Hypercholesterolemia Benign essential hypertension Tobacco dependence Pain in left knee Social History Household Members: Family Housing: House Alcohol intake: current Comment: Rare Patient Tobacco Use Status: Former Tobacco user Tobacco use type: Cigarette Cigarette Packs Per Day: 1 Years Smoked: 40 Review of Systems Const Details: - Musculoskeletal: Reports chronic low back pain, denies radiation to legs - Psychological: Reports depression, under psychological care All systems reviewed & are unremarkable except as noted in HPI and below Physical Exam Vital Signs: Last Vital Signs Pulse 99 01/13/25 09:08 BP 118/77 01/13/25 09:08 Pulse Ox 97 01/13/25 09:08 Oxygen Delivery Method Room Air 01/13/25 09:08 BMI result Body Mass Index 26.1 General: Appears afebrile. Alert and oriented. Mood and affect appropriate. Follows and participates in conversation appropriately. Respiratory effort is unlabored. No cough. Able to transition from sit to stand unassisted. Ambulates with bilaterally normal heel strike and toe off. General: Yes no CVA tenderness Back/Spine/Pelvis Other: Limited lumbar ROM due to pain. Lumbar extension and axial rotation reproduce [id number] pain, flexion is intact but limited and reproduces mild pain. Demonstrates 5/5 strength of quadriceps bilaterally as well as flexion/dorsiflexion of bilateral feet against resistance. 2+ pedal pulses bilaterally. Straight leg rise with dorsiflexion negative bilaterally. +2 patellar and achilles reflexes bilaterally. Painful and positive facet loading test bilaterally, right worse than left. Zoila sign, Jorge?s, [place]len, Pelvic compression and Stinchfield tests are positive bilaterally. Mild groin pain with I/E hip rotations bilaterally. Mild to moderate TTP to bilateral GTB. Valsalva maneuver negative. Back: no CVA tenderness Cervical Spine: cervical ROM normal, cervical muscular tenderness, pain with cervical ROM and No Cervical spine tenderness Thoracic/Lumbar Spine: thoracic and lumbar spine normal to inspection, No Thoracic/lumbar spine scar(s), Lasegue's sign negative, straight leg raise negative bilaterally, pain with thoraco-lumbar ROM, thoraco-lumbar ROM limited, No thoracic spinal tenderness and lumbar spinal tenderness at L4 and at L5 Sacroiliac joints: bilaterally tender to palpation Extrem General: Yes capillary refill normal, Yes no clubbing, cyanosis or edema and Yes no calf tenderness Results Reviewed Results Reviewed: XR SACROILIAC JOINTS 4 VIEWS 12/29/23 FINDINGS: Mild bilateral SI joint arthritis, with subchondral sclerosis/cysts marginating the SI joints.. Gas and stool projected over the pelvic bones, sacrum and coccyx limiting evaluation. In the nonobscured bones, no acute fracture seen. IMPRESSION: Mild bilateral SI joint osteoarthritis. Assessment & Plan Assessment & Plan (1) Chronic low back pain: Code(s): M54.50 - Low back pain, unspecified; G89.29 - Other chronic pain Category: Medical (2) Bilateral hip pain: Code(s): M25.551 - Pain in right hip; M25.552 - Pain in left hip Category: Medical (3) Spondylosis of lumbosacral region without myelopathy or radiculopathy: Code(s): M47.817 - Spondylosis without myelopathy or radiculopathy, lumbosacral region Category: Medical (4) Sacroiliac joint pain: Code(s): M53.3 - Sacrococcygeal disorders, not elsewhere classified Category: Medical (5) Lumbar degenerative disc disease: Code(s): M51.36 - Other intervertebral disc degeneration, lumbar region Category: Medical Plan The plan includes obtaining an X-ray of the back and hips to evaluate the extent of arthritis and degenerative changes. Diagnostic injections are proposed to confirm the source of back pain, and if successful, the patient may be a candidate for procedures offering up to 10-12 months of pain relief, such as Sprint PNS trial or lumbar RFA. The patient is advised to stop aspirin one week prior to the injections and to remain active for six hours post-injection to monitor pain response. Schedule diagnostic bilateral L3-L4 DR L5 medial branch blocks with local and fluoroscopy. Expectations, risks and benefits were reviewed. Patient is aware he will be contacted to schedule this procedure. A lidocaine patch 5% is prescribed for up to 12 hours daily to manage pain until further interventions are completed. All questions and concerns have been answered and patient agreed with the treatment plan. Follow up after injections and sooner as needed. Patient was informed and verbally consented to the use of an ambient scribe for clinic note documentation during this visit. Orders: Orders XR lumbar spine 4V min Today G89.29 - Other chronic pain, M47.9 - Spondylosis, unspecified, M54.50 - Low back pain, unspecified XR hip BI w PEL1V Today M25.551 - Pain in right hip, M25.552 - Pain in left hip Medications: New lidocaine 5% 1 patch topical DAILY 30 ea 0RF pain 30 days G89.29 - Other chronic pain, M47.9 - Spondylosis, unspecified, M54.50 - Low back pain, unspecified Coding Level of Care Code New Pt Level 4 (54939) Diagnoses Chronic low back pain M54.50; G89.29 Bilateral hip pain M25.551; M25.552 Spondylosis of lumbosacral region without myelopathy or radiculopathy M47.817 Sacroiliac joint pain M53.3 Lumbar degenerative disc disease M51.36
[2025-01-13 09:08] VITALS: BP 118/77; PULSE 99; O2SAT 97; BMI 26.1
--- OUTSIDE RECORDS SUMMARY | 2025-01-13 09:41 | XMS_ITS | Encounter Summary ---
Author Organization [facility] Address [address] [place] [address] Care Team Providers Care Research Neuropsychologist Name Role Phone Name, Virgilio HAMLIN Primary Care Provider [phone] Reason for Visit * Reason Onset Date Comments Appointment Request 04/15/2024 Encounter Details Date Type Department Care Team ([facility] st Contact Info) Description 04/15/2024 Telephone [facility] [address] [place], [place] [phone] Name, MD Virgilio [address] [place] [address] Appointment Request Social History Tobacco Use Types [...] Care Team (Late st Contact Info) Description 03/24/2025 1:45 PM EST Office Visit [facility] [address] [place] [id number] Name, MD Virgilio [address] [place] [id number] documented as of this encounter Visit Diagnoses Not on filedocumented in this encounter Care Teams Research Neuropsychologist Relationship Specialty Start Date End Date Name, MD Virgilio [address] [place] [id number] PCP - General Internal Medicine 12/04/23 documented as of this encounter
--- OUTSIDE RECORDS SUMMARY | 2025-01-13 09:41 | XMS_ITS | Clinical Summary ---
Author Organization [employer] Address [address] [facility] [address] [place] [address] Care Team Providers Care Salvage Supervisor Name Role Phone Name, Virgilio HAMLIN Primary Care Provider [phone] Allergies No known active allergies Medications methotrexate 2.5 MG tablet TAKE 8 TABLETS [...] SMOKING CESSATION 72 lozenge 08/06/19 25 Active amLODIPine (Norvasc) 5 MG tabletIndicatio ns:Benign essential hypertension TAKE 1 TABLET BY MOUTH EVERY DAY 90 tablet 1 10/29/19 25 Active varenicline (Chantix) 1 MG tablet TAKE 1 TABLET BY MOUTH TWICE DAILY WITH A FULL GLASS OF WATER 56 tablet 3 11/01/19 25 Active buPROPion XL (Wellbutrin XL) 150 MG 24 hr tabletIndicatio ns:Generalized anxiety disorder TAKE 1 TABLET BY MOUTH EVERY DAY IN THE MORNING, DO NOT BREAK, CRUSH, DISSOLVE OR CHEW 30 tablet 12/19/19 25 Active levothyroxine (Synthroid, Levoxyl) 50 MCG tabletIndicatio ns:Hypothyroidi sm, unspecified type TAKE 1 TABLET BY MOUTH EVERY DAY IN THE MORNING BEFORE BREAKFAST 90 tablet 1 12/26/19 25 Active atorvastatin (Lipitor) 20 MG tabletIndicatio ns:Hypercholest erolemia TAKE 1 TABLET BY MOUTH EVERY DAY 90 tablet 1 01/02/20 25 Active lisinopril 10 MG tabletIndicatio ns:Benign essential hypertension TAKE 1 TABLET BY MOUTH EVERY DAY 90 tablet 1 01/02/20 25 Active albuterol 108 (90 Base) MCG/ACT inhalerIndicati ons:Mild intermittent asthma in adult without complication INHALE 2 PUFFS BY MOUTH EVERY 6 HOURS NEEDED FOR WHEEZING 18 g 3 01/07/20 25 Active Aspirin Low Dose 81 MG EC tabletIndicatio ns:Benign essential hypertension TAKE 1 TABLET BY MOUTH ONCE DAILY IN THE MORNING 90 tablet 01/08/20 25 Active gabapentin (Neurontin) 300 MG capsuleIndicati ons:Rheumatoid arthritis, involving unspecified site, unspecified whether rheumatoid factor present (CMS/HCC) (HCC) TAKE 1 CAPSULE BY MOUTH EVERY DAY AT BEDTIME 30 capsule 01/08/20 25 Active Ventolin HFA 108 (90 Base) MCG/ACT inhalerIndicati ons:Mild intermittent asthma in adult without complication INHALE 2 PUFFS BY MOUTH EVERY 6 HOURS NEEDED FOR WHEEZING 18 g 3 04/23/19 25 025 Discontinued atorvastatin (Lipitor) 20 MG tabletIndicatio ns:Hypercholest erolemia TAKE 1 TABLET BY MOUTH EVERY DAY 90 tablet 1 06/27/19 25 025 Discontinued lisinopril 10 MG tabletIndicatio ns:Benign essential hypertension TAKE 1 TABLET BY MOUTH EVERY DAY 90 tablet 1 06/27/19 25 025 Discontinued levothyroxine (Synthroid, Levoxyl) 50 MCG tabletIndicatio ns:Hypothyroidi sm, unspecified type TAKE 1 TABLET BY MOUTH EVERY DAY IN THE MORNING BEFORE BREAKFAST 90 tablet 1 06/27/19 25 025 Discontinued aspirin (Aspirin Low Dose) 81 MG EC tabletIndicatio ns:Benign essential hypertension Take 1 tablet (81 mg) by mouth in the morning. 90 tablet 09/12/19 25 025 Discontinued buPROPion XL (Wellbutrin XL) 150 MG 24 hr tabletIndicatio ns:Generalized anxiety disorder TAKE 1 TABLET BY MOUTH EVERY DAY IN THE MORNING, DO NOT BREAK, CRUSH, DISSOLVE OR CHEW 30 tablet 11/14/19 025 Discontinued(Re order (will not trigger notification to Pharmacy)) gabapentin (Neurontin) 300 MG capsuleIndicati ons:Rheumatoid arthritis, involving unspecified site, unspecified whether rheumatoid factor present (CMS/HCC) ([facility]) Take 1 capsule (300 mg) by mouth at bedtime. 30 capsule 11/27/19 25 025 Discontinued Active Problems Problem Noted [...] 09/27/2023 Generalized anxiety disorder 09/27/2023 Rheumatoid arthritis (CMS/HCC) 09/27/2023 Asthma in adult without complication 09/27/2023 Encounters Date Type Department Care Team Description 01/06/2025 Refill [facility] [address] [place] [address] Name, MD Virgilio Benign essential hypertension; Rheumatoid arthritis, involving unspecified site, unspecified whether rheumatoid factor present ([facility]) ([facility]) 01/04/2025 Refill [facility] [address] [place] [phone] Virgilio Francisco MD Mild intermittent asthma in adult without complication 01/02/2025 Telephone [facility] [address] [place] [address] [phone] Fatimah Painter MA january recalls 01/01/2025 Refill [facility] [address] [place] [phone] Virgilio Francisco MD Hypercholesterolemia; Benign essential hypertension 12/25/2024 Refill [facility] [address] [place] [address] [phone] Virgilio Francisco MD Hypothyroidism, unspecified type 12/18/2024 Refill [facility] [address] [place] [address] Virgilio Francisco MD Generalized anxiety disorder 11/26/2024 Refill [facility] [address] [place] [address] Virgilio Francisco MD Rheumatoid arthritis, involving unspecified site, unspecified whether rheumatoid factor present ([facility]) 11/13/2024 Refill [facility] [address] [place], [place] [phone] Yuliet Mcqueen DO Generalized anxiety disorder 10/31/2024 Refill [facility] [address] [place] [phone] Virgilio Francisco MD 10/27/2024 Refill [facility] [address] [place] [phone] Virgilio Francisco MD Benign essential hypertension 10/15/2024 Results Follow-Up [facility] [address] [place] [phone] Ariana Garrett MD PSA,Total from Last 3 Months Immunizations Immunization Administration [...] the past 12 months, has t he [employer], gas, oil or water company threatened to [...] 10/09/2024 9:45 AM EDT Plan of Treatment Upcoming Encounters Date Type Department Care Team (Late st Contact Info) Description 03/24/2025 1:45 PM EST Office Visit [facility] [address] [place] [address] Name, MD Virgilio [address] [place] [address] Health Maintenance Due Date Last Done Comments CT Colonography 1970 Colonoscopy 1970 Colorectal Cancer Screening 1970 Dental Oral Exam 1970 FIT DNA/Cologuard 1970 FIT 1970 FOBT 1970 HIV Screening 1970 Sigmoidoscopy 1970 Hepatitis B Vaccines (1 of 3 - 19+ 3-dose series) 1989 Zoster Vaccines (1 of 2) 2020 Dental Prophylaxis 07/10/2024 01/09/2024 COVID-19 Vaccine (1 - 2023-2 5 season) 2024 Influenza Vaccine (#1) 2024 12/04/2023 Dental X-Ray: [...] Results * T-SPOT??.TB (10/15/2024 9:36 AM EDT) Pathologist [facility] T Spot TB Negative Negative [facility] Comment:A negative test resu lt [...] as aquantitative test. TS PANEL A 0 [facility] TS PANEL B 0 [facility] Negative Control Passed [facility] Positive Control Passed [facility] Comment:For additional infor niles, please refer tohttp://education.Flavourly/faq/BSQ765(This link is being provided for informational/educational purposes only.)THIS TEST WAS PERFORMED AT:[employer] [id number] [place] [id number] W. MASON,MD,PHD 10/15/2024 9:36 AM EDT 10/15/2024 11:06 AM EDT Generic External Data Provider LAB BLOOD ORDERAB LES Final Result [facility] [address] [place] [phone] * Hepatitis Panel, General (10/15/2024 9:36 AM EDT) Hepatitis A IgM Nonreactive Nonreactive [facility] Comment:IgM antibodies to GUZMAN V not detected; does not exclude earlyacute or recovered HAV infection. ~Hepatitis B Surface Antibody NONREACTIVE Nonreactive [facility] Comment:Nonreactive: < 8.00 mIU/mL Hepatitis B Core Antibody Nonreactive Nonreactive [facility] Hepatitis C Antibody Nonreactive Nonreactive [facility] Comment:Antibodies to HCV no t detected; does not exclude early acuteHCV infection. Hepatitis B Surface Ag Negative Negative [facility] 10/15/2024 9:36 AM EDT 10/15/2024 11:17 AM EDT us Generic External Data Provider LAB BLOOD ORDERAB LES Final Result [facility] [address] [place], [place] [phone] * (ABNORMAL) CBC auto differential (10/15/2024 9:36 AM EDT) White Blood Count 8.6 4.8 - 10.8 X10*3/uL [facility] Red Blood Count 4.71 4.60 - 5.80 X10*6/uL [facility] Hemoglobin 14.1 14.0 - 18.0 g/dl [facility] Hematocrit 41.4(L) 42.0 - 52.0 % [facility] Mean Corpuscular Volume 87.9 80.0 - 98.0 fL [facility] Mean Corpuscular Hemoglobin 29.9 27.0 - 33.0 pg [facility] Mean Corpuscular HGB Conc 34.1 31.0 - 36.0 g/dl [facility] Red Cell Distribution Width 14.1 11.0 - 16.0 % [facility] Platelet Count 356 160 - 400 X10*3/uL [facility] Mean Platelet Volume 10.7 9.4 - 12.4 fL [facility] Neutrophils Percent Auto 56.0 45 - 73 % [facility] Imm Gran Pct Auto 0.1 0.0 - 0.4 % [facility] Lymphocytes Percent Auto 33.1 20 - 40 % [facility] Monocytes Percent Auto 8.2 2 - 11 % [facility] Eosinophils Percent Auto 1.0 0 - 4 % [facility] Basophils Percent Auto 1.6 0 - 2 % [facility] NRBC Pct Auto 0.0 0.0 - 0.2 /100WBC [facility] Neutrophils Absolute Auto 4.8 2.0 - 8.3 x10*3/uL [facility] Imm Gran Abs Auto 0.01 0.00 - 0.03 X10*3/uL [facility] Lymphocytes Absolute Auto 2.9 1.2 - 4.9 X10*3/uL [facility] Monocytes Absolute Auto 0.7 0.1 - 1.2 X10*3/uL [facility] Eosinophils Absolute Auto 0.1 0.0 - 0.4 X10*3/uL [facility] Basophils Absolute Auto 0.1 0.0 - 0.2 X10*3/uL [facility] NRBC Abs Auto 0.000 0.0 - 0.012 X10*3/uL [facility] 10/15/2024 9:36 AM EDT 10/15/2024 11:06 AM EDT us Generic External Data Provider LAB BLOOD ORDERAB LES Final Result Performing Organization Address [facility] de Phone Number [facility] [address] [place] [phone] * Sed Rate by Modified Jade (10/15/2024 9:36 AM EDT) Erythrocyte Sedimentation Rate 5 0 - 15 MM/HR [facility] Comment:Patients with polycy themia and many hemoglobin abnormalitiesmay have depressed sed rates whereas patients with anemiamay have elevated sed rates. 10/15/2024 9:36 AM EDT 10/15/2024 11:06 AM EDT us Generic External Data Provider LAB BLOOD ORDERAB LES Final Result Performing Organization Address [facility] de Phone Number [facility] [address] [place] [phone] * C-reactive Protein (10/15/2024 9:36 AM EDT) C Reactive Protein 0.10 < or = 0.50 mg/dL [facility] 10/15/2024 9:36 AM EDT 10/15/2024 11:17 AM EDT Generic External Data Provider LAB BLOOD ORDERAB LES Final Result Performing Organization Address [facility]/State/ZIP Co de Phone Number [facility] [address] [place] [phone] * PSA,Total (10/15/2024 9:36 AM EDT) Pathologist [facility] Prostate Specific Antigen 0.80 <0.05 - 4.0 ng/mL [facility] Comment:PSA methodology: Danelle Cannon i ChemiluminescentMicroparticle Immunoassay (CMIA) Blood Venous blood specimen / Unknown 10/15/2024 9:36 AM EDT 10/15/2024 11:17 AM EDT us Virgilio Name LAB BLOOD ORDERABLES Final Resul t [facility] [address] [place] [phone] * (ABNORMAL) Comprehensive Metabolic Panel (10/15/2024 9:36 AM EDT) Pathologist [facility] Sodium 143 135 - 145 mmol/L [facility] Potassium 3.6 3.3 - 5.1 mmol/L [facility] Chloride 111(H) 96 - 108 mmol/L [facility] Carbon Dioxide 26 22 - 29 mmol/L [facility] Anion Gap 10(L) 12 - 20 [facility] Urea Nitrogen (BUN) 12 9 - 16 mg/dL [facility] Creatinine, Serum 0.70 0.5 - 1.4 mg/dL [facility] Estimated Glomerular Filt Rate >60 [facility] Comment:Chronic Kidney Disea se: Estimated GFR < 60 mL/min/1.38c2[place] Kidney Disease: Estimated GFR < 15 mL/min/1.73m2 Glucose 106 60 - 115 mg/dL [facility] Calcium 9.0 8.4 - 10.2 mg/dL [facility] Bilirubin, Total 0.5 0.0 - 1.0 mg/dL [facility] Aspartate Amino Transferase 37 5 - 37 U/L [facility] Alanine Aminotransferase 32 0 - 40 U/L [facility] Total Protein 6.8 6.5 - 8.0 g/dL [facility] Albumin Level 4.4 3.5 - 5.0 g/dL [facility] Alkaline Phosphatase 78 39 - 117 U/L [facility] 10/15/2024 9:36 AM EDT 10/15/2024 11:17 AM EDT us Generic External Data Provider LAB BLOOD ORDERAB LES Final Result Performing Organization Address [facility] Co de Phone Number [facility] [address] [place] [phone] * Lipid Panel, Standard (06/16/2023 10:12 AM EDT) Triglycerides 97 <150 mg/dL [facility] Comment:Desirable Triglyceri de: less than 150 mg/dLBorderline High Triglyceride 150-199 mg/dLHigh Triglyceride: 200-499 mg/dLVery High Triglyceride: greater than or equal to 5OO mg/dL Cholesterol 149 <200 mg/dL [facility] Comment:Desirable Cholestero l: less than 200 mg/dLBorderline High Cholesterol: 200-239 mg/dLHigh Cholesterol: greater than 239 mg/dL LDL Cholesterol Calculated 69 <100 mg/dL [facility] Comment:Desirable LDL: less than 100 mg/dLNear Optimal/Above Optimal LDL: 110- 129 mg/dLBorderline High LDL: 130-159 mg/dLHigh LDL: 160-189 mg/dLVery High LDL: greater than or equal to 190 mg/dL HDL Cholesterol 61 >40 mg/dL [facility] Comment:Desirable HDL: great er than 40 mg/dL Note: This HDL assay may give artificially low results in patients with liver disease. Blood Venous blood specimen / Unknown 06/16/2023 10:12 AM EDT 06/16/2023 11:19 AM EDT us Gurinder Dawson MD LAB BLOOD ORDERABLES Final Resul t Performing Organization Address City/[facility]/ZIP Co de Phone Number [facility] [address] [place] [phone] from Last 3 Months or Most Recently Relevant to Health Maintenance Insurance [place] [facility] MEDICAID STAND ADULT Care Teams Salvage Supervisor Relationship Specialty Start Date End Date Name, MD Virgilio [address] [place] [phone] PCP - General Internal Medicine 12/04/23
--- OUTSIDE RECORDS SUMMARY | 2025-01-13 09:41 | XMS_ITS | Encounter Summary ---
Author Organization [employer] Address [address] [facility] [address] [place] [address] Care Team Providers Care Applications Trainer Name Role Phone Name, Virgilio HAMLIN Primary Care Provider [phone] Reason for Visit * Reason Onset Date Comments Med Refill 04/15/2024 Encounter Details Date Type Department Care Team (Late st Contact Info) Description 04/15/2024 Telephone [facility] [address] [place], [place] [phone] Name, MD Virgilio [address] [place] [address] Med Refill Social History Tobacco Use Types [...] 9:29 AM EST Medication was sent to [facility] on 12/19/23 #90 with 1 refill. * Telephone Encounter - Kerri Santana - 04/15/2024 9:11 AM EST TC from pt requesting medication refill. Medications needing refill : amLODIPine (Norvasc) 5 MG tablet To be sent to: [facility] documented in this encounter Plan of Treatment Upcoming Encounters Date Type Department Care Team (Late st Contact Info) Description 03/24/2025 1:45 PM EST Office Visit [facility] [address] [place] [phone] Name, MD Virgilio [address] [place] [phone] documented as of this encounter Visit Diagnoses Not on filedocumented in this encounter Care Teams Applications Trainer Relationship Specialty Start Date End Date Name, MD Virgilio [address] [place] [address] [phone] PCP - General Internal Medicine 12/04/23 documented as of this encounter
== END 2025-01-13 09:34 | disposition home or self-care (01) ==
LOC: HO.PMC 08:59
PROVIDERS: PCP Internal Medicine Geriatric Medicine; Referring Provider Student in an Organized Health Care Education/Training Program; Visit Provider Nurse Practitioner Family
DX: M54.50 Low back pain, unspecified (principal); G89.29 Other chronic pain; M25.551 Pain in right hip; M25.552 Pain in left hip; M47.817 Spondylosis without myelopathy or radiculopathy, lumbosacral region; M53.3 Sacrococcygeal disorders, not elsewhere classified; M51.369 Other intervertebral disc degeneration, lumbar region without mention of lumbar back pain or lower extremity pain
CPT/HCPCS: 99204

== ENCOUNTER → 2025-01-13 09:44 | Outpatient (BNV) | payer MEDICARE, MEDICAID, SELFPAY | PROVIDERS: PCP Internal Medicine Geriatric Medicine; Referring Provider Student in an Organized Health Care Education/Training Program; Visit Provider Radiology Diagnostic Ultrasound | DX: M47.816 Spondylosis without myelopathy or radiculopathy, lumbar region (principal); M51.379 Other intervertebral disc degeneration, lumbosacral region without mention of lumbar back pain or lower extremity pain; M25.551 Pain in right hip | CPT/HCPCS: 72110; 73521 ==

== ENCOUNTER 2025-03-04 07:54 | Outpatient (REF) | payer MEDICARE, MEDICAID, SELFPAY ==
--- OUTSIDE RECORDS SUMMARY | 2025-03-04 08:01 | XMS_ITS | Encounter Summary ---
Author Organization [employer] Address [address] [facility] [address] [place] [address] Care Team Providers Care Appliance Sales Associate Name Role Phone Name, Virgilio HAMLIN Primary Care Provider [phone] Encounter Details Date Type Department Care Team (Late st Contact Info) Description 02/27/2025 Telephone [facility] [address] [place] [address] Julee Goff, RN Social History Tobacco Use Types Packs/Day Years [...] encounter Miscellaneous Notes * Telephone Encounter - Julee Goff RN - 02/27/2025 9:55 AM EST Incoming fax from [facility] requesting a [facility]. Letter placed on PCP for review. Letter generated by PCPwith signature provided. Supply Chain Manager faxed over letter to [facility], confirmation received andplaced in [facility] scanning bin. Pt is to follow up with PCP as needed. documented in this encounter Plan of Treatment Upcoming Encounters Date Type Department Care Team (Late st Contact Info) Description 03/24/2025 1:45 PM EST Office Visit [facility] [address] [place] [phone] Name, MD Virgilio [address] [place] [phone] documented as of this encounter Visit Diagnoses Not on filedocumented in this encounter Additional Health Concerns Assessment Noted Time PHQ-9 Depression Total Score: 7 06/20/19 25 10:35 AM EDT documented as of this encounter Care Teams Appliance Sales Associate Relationship Specialty Start Date End Date Name, MD Virgilio [address] [place] [phone] PCP - General Internal Medicine 12/04/23 documented as of this encounter
--- OUTSIDE RECORDS SUMMARY | 2025-03-04 08:01 | XMS_ITS | Clinical Summary ---
Author Organization [employer] Address [address] [facility] [address]t [place] [address] Care Team Providers Care Printer Repair Technician Name Role Phone Name, Virgilio HAMLIN Primary Care Provider [phone] Allergies No known active allergies Medications methotrexate [...] 08/06/19 25 Active amLODIPine (Norvasc) 5 MG tabletIndication s:Benign essential hypertension TAKE 1 TABLET BY MOUTH EVERY DAY 90 tablet 1 10/29/19 25 Active varenicline (Chantix) 1 MG tablet TAKE 1 TABLET BY MOUTH TWICE DAILY WITH A FULL GLASS OF WATER 56 tablet 3 5 2:23 PM EST 11/01/19 25 Active levothyroxine (Synthroid, Levoxyl) 50 MCG tabletIndication s:Hypothyroidism , unspecified type TAKE 1 TABLET BY MOUTH EVERY DAY IN THE MORNING BEFORE BREAKFAST 90 tablet 1 12/26/19 25 Active atorvastatin (Lipitor) 20 MG tabletIndication s:Hypercholester olemia TAKE 1 TABLET BY MOUTH EVERY DAY 90 tablet 1 01/02/20 25 Active lisinopril 10 MG tabletIndication s:Benign essential hypertension TAKE 1 TABLET BY MOUTH EVERY DAY 90 tablet 1 01/02/20 25 Active albuterol 108 (90 Base) MCG/ACT inhalerIndicatio ns:Mild intermittent asthma in adult without complication INHALE 2 PUFFS BY MOUTH EVERY 6 HOURS NEEDED FOR WHEEZING 18 g 3 5 2:23 PM EST 01/07/20 25 Active Aspirin Low Dose 81 MG EC tabletIndication s:Benign essential hypertension TAKE 1 TABLET BY MOUTH ONCE DAILY IN THE MORNING 90 tablet 01/08/20 25 Active gabapentin (Neurontin) 300 MG capsuleIndicatio ns:Rheumatoid arthritis, involving unspecified site, unspecified whether rheumatoid factor present (CMS/HCC) (HCC) TAKE 1 CAPSULE BY MOUTH AT BEDTIME 30 capsule 5 2:29 PM EST 02/12/20 25 Active buPROPion XL (Wellbutrin XL) 150 MG 24 hr tabletIndication s:Generalized anxiety disorder TAKE 1 TABLET BY MOUTH EVERY MORNING. DO NOT BREAK, CRUSH, DISSOLVE OR CHEW. 30 tablet 5 2:23 PM EST 02/22/20 Active gabapentin (Neurontin) 300 MG capsuleIndicatio ns:Rheumatoid arthritis, involving unspecified site, unspecified whether rheumatoid factor present (CMS/HCC) (HCC) TAKE 1 CAPSULE BY MOUTH EVERY DAY AT BEDTIME 30 capsule 01/08/20 25 025 Discontinued buPROPion XL (Wellbutrin XL) 150 MG 24 hr tabletIndication s:Generalized anxiety disorder TAKE 1 TABLET BY MOUTH EVERY MORNING. DO NOT BREAK, CRUSH, DISSOLVE OR CHEW 30 tablet 01/22/20 25 025 Discontinued Active Problems Problem Noted [...] Encounters Date Type Department Care Team Description 02/27/2025 Telephone [facility] MEDICINE [address] [place] [phone] Julee Goff RN 02/21/2025 Refill [facility] MED & PEDS [address] [place] [address] Virgilio Francisco MD Generalized anxiety disorder 02/10/2025 Refill [facility] PEDS [address] [place] [address] Virgilio Francisco MD Rheumatoid arthritis, involving unspecified site, unspecified whether rheumatoid factor present (CMS/HCC) ([facility]) 01/20/2025 Refill [facility] MED [facility] PEDS [address] [place] [address] Virgilio Francisco MD Generalized anxiety disorder 01/13/2025 Orders Only [facility] External Provider, [facility] 01/06/2025 Refill [facility] PEDS [address] [place] [address] Virgilio Francisco MD Benign essential hypertension; Rheumatoid arthritis, involving unspecified site, unspecified whether rheumatoid factor present (CMS/[facility]) ([facility]) 01/04/2025 Refill [facility] WALK-IN CENTER [address] [place] [address] Virgilio Francisco MD Mild intermittent asthma in adult without complication 01/02/2025 Telephone [facility] MEDICINE [address] [place] [phone] Fatimah Painter MA january recalls 01/01/2025 Refill [facility] WALK-IN CENTER [address] [place] [address] Virgilio Francisco MD Hypercholesterolemia; Benign essential hypertension 12/25/2024 Refill [facility] [address] [place] [address] Virgilio Francisco MD Hypothyroidism, unspecified type 12/18/2024 Refill [facility] [address] [place], [place] [phone] Virgilio Francisco, MD Generalized anxiety disorder from Last 3 Months [...] Description 03/24/2025 1:45 PM EST Office Visit [facility] MEDICINE [address] [place], [place] [phone] Name, MD Virgilio [address] [place] [address] Health Maintenance Due Date Last Done Comments CT Colonography 1970 Colonoscopy 1970 Colorectal Cancer Screening 1970 Dental Oral Exam 1970 FIT DNA/Cologuard 1970 FIT 1970 FOBT 1970 HIV Screening 1970 Sigmoidoscopy 1970 Hepatitis B Vaccines (1 of 3 - 19+ 3-dose series) 1989 RSV Patients and Patients Aged 60 years or older (1 - Risk 50-74 years 1-dose series) 2020 Zoster Vaccines (1 of 2) 2020 Dental Prophylaxis 07/10/2024 01/09/2024 COVID-19 Vaccine (1 - 2024-2 6 season) 2024 Influenza Vaccine (#1) 2024 12/04/2023 Dental X-Ray: Bitewings 01/09/2025 01/09/2024 Alcohol/Substance Use Screening 06/19/2025 06/19/2024 Depression Screening 06/19/2025 06/19/2024, 06/19/2024 Disability Screening 06/19/2025 06/19/2024 SDOH Screening 10/09/2025 10/09/2024 Tobacco Screening 10/09/2025 10/09/2024 Dental X-Ray: Full Mouth 04/09/2027 025, 01/09/2024, 06/28/2023 Lipid Panel 06/15/2028 06/16/2023 DTaP/Tdap/Td Vaccines (2 - T d or Tdap) 06/19/2034 06/19/2024 Pneumococcal Vaccine: 50+ Years Completed 12/04/2023 Hepatitis [...] Procedure Name Priority Date/Time Associated Diagnosis Comments XR HIP BILATERAL WITH PELVIS 1 VIEW Routine 01/13/2025 9:51 AM EDT XR LUMBAR SPINE COMPLETE 4+ VIEWS Routine 01/13/2025 9:49 AM EDT HEPATITIS PANEL, GENERAL Routine 10/15/2024 9:36 AM EDT PROPHYLAXIS - ADULT Routine 01/09/2024 1 0:00 AM EDT INTRAORAL - COMPLETE SERIES OF RADIOGRAPHIC IMAGES Routine 01/09/2024 10:00 AM EDT LIPID PANEL, STANDARD Routine 06/16/2023 10:12 AM EDT Hypercholesterolemi a from Last 3 Months or Most Recently Relevant to Health Maintenance Results * XR Hips Bilateral with Pelvis 1 view (01/13/2025 9:51 AM EDT) Anatomical Region Laterality Modality Lower Extremities, Hip Bilateral Radiograp hic Imaging 01/13/2025 9:51 AM EDT Narrative 01/14/2025 11:45 AM EDT [address] [address] XRay Report Signed Patient: Power Alvarado MR#: [id number] : 1970 Acct:[id number] Age/Sex: 54 / M ADM Date: 01/13/25 Loc: HO.XRAY Attending Dr: Matilde HAMMOND Ordering Physician: Matilde Lowe Date of Service: 01/13/25 Procedure(s): XR hip BI w PEL1V Accession Number(s): [id number] cc: Matilde Lowe; Name,Virgilio HAMLIN Reason for Exam: M25.551 - Pain in right hip EXAMINATION: XR BILATERAL HIPS WITH AP PELVIS CLINICAL INFORMATION: M25.551 - Pain in right hip COMPARISON: None available. TECHNIQUE: Pelvis 1 view. Bilateral hips each 2 views. FINDINGS: Right hip: Right hip joint space is maintained. Corticated ossification superior to the greater trochanter, likely related remote injury. No visible acute fracture or dislocation. No abnormal soft tissue calcification. Left hip: Joint space is maintained. No visible acute fracture, dislocation or suspicious bony lesion. No abnormal soft tissue calcification. SI joints, symphysis pubis intact. No suspicious lytic or blastic lesions. XR/XR hip BI w PEL1V IMPRESSION: No acute osseous findings. Electronically signed by: Onofre Lopez MD 01/14/2025 11:42 AM EDT Dictated By: Onofre Lopez MD Signed By: <Electronically signed by Onofre Lopez MD in OV> 01/14/25 1142 DD/ TD/TT: 01/13/2559 Graphic Design Specialist: JESUSITA Procedure Note Donotuseinterpreter, Image - 01/14/[address] [address] XRay Report Signed Patient: Power Alvarado FMR#: [id number] : 1970Acct:[id number] Age/Sex: 54 / MADM Date: 01/13/25 Loc: HO.XRAY Attending Dr: Matilde HAMMOND Ordering Physician: Matilde Lowe Date of Service: 01/13/25 Procedure(s): XR hip BI w PEL1V Accession Number(s): [id number] cc: Matilde Lowe; Name,Virgilio HAMLIN Reason for Exam: M25.551 - Pain in right hip EXAMINATION: XR BILATERAL HIPS WITH AP PELVIS CLINICAL INFORMATION: M25.551 - Pain in right hip COMPARISON: None available. TECHNIQUE: Pelvis 1 view. Bilateral hips each 2 views. FINDINGS: Right hip: Right hip joint space is maintained. Corticated ossification superior to the greater trochanter, likely related remote injury. No visible acute fracture or dislocation. No abnormal soft tissue calcification. Left hip: Joint space is maintained. No visible acute fracture, dislocation or suspicious bony lesion. No abnormal soft tissue calcification. SI joints, symphysis pubis intact. No suspicious lytic or blastic lesions. XR/XR hip BI w PEL1V IMPRESSION: No acute osseous findings. Electronically signed by: Onofre Lopez MD 01/14/2025 11:42 AM EDT Dictated By: Onofre Lopez MD Signed By: <Electronically signed by Onofre Lopez MD in OV> 01/14/25 1142 DD/ 0951 TD/TT: 01/13/25 0959 Graphic Design Specialist: JESUSITA us [facility] External Provider IMG XR PROCEDURES Final Result * XR Lumbar Spine Complete 4+ Views (01/13/2025 9:49 AM EDT) Anatomical Region Laterality Modality Spine, L-spine Radiographic Ricarda ging 01/13/2025 9:49 AM EDT Narrative 01/14/2025 12:56 PM EDT [facility] [address] [address] XRay Report Signed Patient: Power Alvarado MR#: [id number] : 1970 Acct:[id number] Age/Sex: 54 / M ADM Date: 01/13/25 Loc: HOYOLANDA Attending Dr: Matilde HAMMOND Ordering Physician: Matilde Lowe Date of Service: 01/13/25 Procedure(s): XR lumbar spine 4V min Accession Number(s): [id number] cc: Matilde oLwe; Name,Virgilio HAMLIN Reason for Exam: M47.9 - Spondylosis, unspecified EXAMINATION: X-ray lumbar spine CLINICAL INFORMATION: Spondylosis COMPARISON: None TECHNIQUE: Lumbar spine 5 views. FINDINGS: 5 lumbar type vertebral bodies. No evidence of acute fracture or spondylolisthesis. Multilevel disc degeneration, more prominent findings of moderate L5-S1 disc degeneration. Multilevel facet degeneration. No suspicious bony lesion. SI joints are symmetric. No abnormal soft tissue calcification.. XR/XR lumbar spine 4V min IMPRESSION: Lumbar spondylosis. L5-S1 moderate disc degeneration. Electronically signed by: Onofre Lopez MD 01/14/2025 12:53 PM EDT Dictated By: Onofre Lopez MD Signed By: <Electronically signed by Onofre Lopez MD in OV> 01/14/25 1253 DD/ 0949 TD/TT: 01/13/25 0959 Graphic Design Specialist: Procedure Note Donotuseinterpreter, Image - 01/14/[address] [address] XRay Report Signed Patient: Power Alvarado FMR#: [id number] : 1970Acct:[id number] Age/Sex: 54 / MADM Date: 01/13/25 Loc: HOYOLANDA Attending Dr: Matilde HAMMOND Ordering Physician: Matilde Lowe Date of Service: 01/13/25 Procedure(s): XR lumbar spine 4V min Accession Number(s): [id number] cc: Matilde Lowe; Name,Virgilio HAMLIN Reason for Exam: M47.9 - Spondylosis, unspecified EXAMINATION: X-ray lumbar spine CLINICAL INFORMATION: Spondylosis COMPARISON: None TECHNIQUE: Lumbar spine 5 views. FINDINGS: 5 lumbar type vertebral bodies. No evidence of acute fracture or spondylolisthesis. Multilevel disc degeneration, more prominent findings of moderate L5-S1 disc degeneration. Multilevel facet degeneration. No suspicious bony lesion. SI joints are symmetric. No abnormal soft tissue calcification.. XR/XR lumbar spine 4V min IMPRESSION: Lumbar spondylosis. L5-S1 moderate disc degeneration. Electronically signed by: Onofre Lopez MD 01/14/2025 12:53 PM EDT RP Dictated By: Onofre Lopez MD Signed By: <Electronically signed by Onofre Lopez MD in OV> 01/14/25 1253 DD/ 0949 TD/TT: 01/13/25 0959 Graphic Design Specialist: JESUSITA [facility] External Provider IMG XR PROCEDURES Final Result * Hepatitis Panel, General (10/15/2024 9:36 AM EDT) Hepatitis A IgM Nonreactive Nonreactive [facility] Comment:IgM antibodies to GUZMAN V not detected; does not exclude earlyacute or recovered HAV infection. ~Hepatitis B Surface Antibody NONREACTIVE Nonreactive [facility] Comment:Nonreactive: < 8.00 mIU/mL Hepatitis B Core Antibody Nonreactive Nonreactive [facility] Hepatitis C Antibody Nonreactive Nonreactive [facility] Comment:Antibodies to HCV no t detected; does not exclude early acuteHCV infection. Hepatitis B Surface Ag Negative Negative [facility] 10/15/2024 9:36 AM EDT 10/15/2024 11:17 AM EDT Generic External Data Provider LAB BLOOD ORDERAB LES Final Result [facility] [address] [place] [address] [phone] * Lipid Panel, Standard (06/16/2023 10:12 AM EDT) Triglycerides 97 <150 mg/dL [facility] Comment:Desirable Triglyceri de: less than 150 mg/dLBorderline High Triglyceride 150-199 mg/dLHigh Triglyceride: 200-499 mg/dLVery High Triglyceride: greater than or equal to 5OO mg/dL Cholesterol 149 <200 mg/dL [facility] Comment:Desirable Cholestero l: less than 200 mg/dLBorderline High Cholesterol: 200-239 mg/dLHigh Cholesterol: greater than 239 mg/dL LDL Cholesterol Calculated 69 <100 mg/dL [facility] Comment:Desirable LDL: less than 100 mg/dLNear Optimal/Above Optimal LDL: 110- 129 mg/dLBorderline High LDL: 130-159 mg/dLHigh LDL: 160-189 mg/dLVery High LDL: greater than or equal to 190 mg/dL HDL Cholesterol 61 >40 mg/dL [facility] Comment:Desirable HDL: great er than 40 mg/dL Note: This HDL assay may give artificially low results in patients with liver disease. Blood Venous blood specimen / Unknown 06/16/2023 10:12 AM EDT 06/16/2023 11:19 AM EDT us Gurinder Dawson MD LAB BLOOD ORDERABLES Final Resul t [facility] [address] [place] [address] [phone] from Last 3 Months or Most Recently Relevant to Health Maintenance Insurance [facility] C3 DENTAL-[facility] MEDICAID STAND ADULT Care Teams Printer Repair Technician Relationship Specialty Start Date End Date Name, MD Virgilio [address] [place] [address] PCP - General Internal Medicine 12/04/23
--- OUTSIDE RECORDS SUMMARY | 2025-03-04 08:01 | XMS_ITS | Encounter Summary ---
Author Organization [employer] Address [address] [facility] [address] [place] [address] Care Team Providers Care Rn Night Name Role Phone Name, Virgilio HAMLIN Primary Care Provider [phone] Reason for Visit * Reason Onset Date Comments Appointment Request 04/15/2024 Encounter Details Date Type Department Care Team ([facility] st Contact Info) Description 04/15/2024 Telephone [facility] MEDICINE [address] [place], [place] [phone] Name, MD Virgilio [address] [place] [address] Appointment Request Social History Tobacco Use Types [...] Description 03/24/2025 1:45 PM EST Office Visit [facility] MEDICINE [address] [place] [phone] Name, MD Virgilio [address] [place] [phone] documented as of this encounter Visit Diagnoses Not on filedocumented in this encounter Care Teams Rn Night Relationship Specialty Start Date End Date Name, MD Virgilio [address] [place] [phone] PCP - General Internal Medicine 12/04/23 documented as of this encounter
--- OUTSIDE RECORDS SUMMARY | 2025-03-04 08:01 | XMS_ITS | Encounter Summary ---
Author Organization [employer] Address [address] [facility] 7[address] [place] [address] Care Team Providers Care Dtp Operator Name Role Phone Name, Virgilio HAMLIN Primary Care Provider [phone] Reason for Visit * Reason Onset Date Comments Med Refill 04/15/2024 Encounter Details Date Type Department Care Team (Late st Contact Info) Description 04/15/[address] [facility] MEDICINE [address] [place], [place] [phone] Name, MD Virgilio [address] [place] [address] Med Refill Social History Tobacco Use Types [...] Description 03/24/2025 1:45 PM EST Office Visit [facility] MEDICINE [address] [place] [phone] Name, MD Virgilio [address] [place] [phone] documented as of this encounter Visit Diagnoses Not on filedocumented in this encounter Care Teams Dtp Operator Relationship Specialty Start Date End Date Name, MD Virgilio [address] [place] [phone] PCP - General Internal Medicine 12/04/23 documented as of this encounter
[2025-03-04 08:02] LABS: MANUAL DIFF FLAG NO
[2025-03-04 08:35] LABS: Hematocrit 43.2 % (42.0-52.0); Hemoglobin 14.5 g/dl (14.0-18.0); Imm Gran Abs Auto 0.01 X10*3/uL (0.00-0.03); Imm Gran Pct Auto 0.1 % (0.0-0.4); Lymphocytes Absolute Auto 3.3 X10*3/uL (1.2-4.9); Mean Corpuscular HGB Conc 33.6 g/dl (31.0-36.0); Mean Corpuscular Hemoglobin 29.9 pg (27.0-33.0); Mean Corpuscular Volume 89.1 fL (80.0-98.0); NRBC Abs Auto 0.000 X10*3/uL (0.0-0.012); NRBC Pct Auto 0.0 /100WBC (0.0-0.2); Platelet Count 354 X10*3/uL (160-400); Red Blood Count 4.85 X10*6/uL (4.60-5.80); White Blood Count 7.8 X10*3/uL (4.8-10.8)
[2025-03-04 08:49] LABS: Alanine Aminotransferase 29 U/L (0-40); Albumin Level 4.9 g/dL (3.5-5.0); Alkaline Phosphatase 79 U/L (39-117); Anion Gap 10 (12-20); Aspartate Amino Transferase 33 U/L (5-37); Blood Urea Nitrogen 11 mg/dL (9-16); Calcium 9.0 mg/dL (8.4-10.2); Carbon Dioxide 26 mmol/L (22-29); Chloride 108 mmol/L (96-108); Estimated Glomerular Filt Rate > 60; Potassium 3.8 mmol/L (3.3-5.1); Sodium 140 mmol/L (135-145); Total Protein 7.3 g/dL (6.5-8.0)
== END 2025-03-04 07:55 | disposition home or self-care (01) ==
LOC: HO.LAB 07:54
PROVIDERS: PCP Internal Medicine Geriatric Medicine; Visit Provider Student in an Organized Health Care Education/Training Program
DX: Z79.899 Other long term (current) drug therapy (principal)
CPT/HCPCS: 36415; 80053; 85025; 85652; 86140

== ENCOUNTER 2025-03-05 12:44 | Outpatient (AMB) | payer MEDICARE, MEDICAID, SELFPAY ==
--- NOTE | 2025-03-05 12:50 | A.OFFVIS_ITS ---
Vital Signs 03/05/25 12:55 Height 5 ft 7 in Weight 174 lb BMI 27.2 BP 119/72 Blood Pressure Location Lt brachial Position Sitting Pulse 111 H Intake Visit Reasons: colo screening Intake Note: Patient new consult for Colonoscopy screening Patient cc: denies any GI or bm symptoms, this would be his first colonoscopy Contestant Coordinator Required: Yes Contestant Coordinator Language: Senior Account Executive Services: Contestant Coordinator Present Contestant Coordinator Name: [id number] Raymon Information Interpreted: non-clinical & clinical Accompanied by: Sister Allergies No Known Allergies Allergy (Verified 03/05/25 12:51) Medication List - Last Reconciled 03/05/25 by Reba Bishop CNP albuterol sulfate 90 mcg/actuation (Ventolin HFA) 2 puffs inhalation Q6H PRN amlodipine 5 mg PO DAILY aspirin 81 mg PO DAILY atorvastatin 20 mg PO DAILY bupropion HCl XL 150 mg PO QAM gabapentin 300 mg PO BEDTIME leflunomide 20 mg (2 x 10 mg) PO DAILY levothyroxine 50 mcg PO DAILY lidocaine 5% 1 patch topical DAILY 30 days lisinopril 10 mg PO DAILY varenicline tartrate 1 mg PO BID HPI HPI colo screening: Details: Patient is a 54-year-old male with PMH of asthma, hypothyroidism, HTN, HLD, rheumatoid arthritis on DMARD. Referred by PCP for pre colonoscopy screening. Patient is accompanied by his sister. This will be his first colonoscopy. Regarding his gastrointestinal history, the patient reports having two to three bowel movements daily and feels he empties completely. He denies experiencing blood in his stool, stomach pain, nausea, vomiting, heartburn, reflux, regurgitation of food, or difficulty swallowing. His appetite is good. The patient's medical history is notable for an arthritic condition, for which he takes a medication he could not name. Recent lab work from the previous day showed no evidence of anemia, and his kidney and liver function were normal. Hepatitis screening from September was negative but revealed that he does not have immunity to hepatitis B. Social hx: -ETOH use occasional beer during the week -denies recreational drug use -current smoker - family hx as below -denies personal hx of CA -denies significant cardiopulmonary history -tolerated anesthesia in the past without difficulty. [facility] Medical History (Updated 03/05/25 @ 13:30 by Reba Bishop CNP) Immunization due Colon cancer screening Osteoarthritis of lower back Seropositive rheumatoid arthritis Asthma in adult without complication Generalized anxiety disorder Hypothyroidism Hypercholesterolemia Benign essential hypertension Tobacco dependence Pain in left knee Social History Household Members: Family Housing: House Alcohol intake: current Comment: Rare Patient Tobacco Use Status: Former Tobacco user Tobacco use type: Cigarette Cigarette Packs Per Day: 1 Years Smoked: 40 Review of Systems Const Reports as per HPI ENT Reports as per HPI Card Reports as per HPI Resp Reports as per HPI GI Reports as per HPI Reports as per HPI Physical Exam Vital Signs: Last Vital Signs Pulse 111 H 03/05/25 12:55 BP 119/72 03/05/25 12:55 BMI result Body Mass Index 27.2 Const General: healthy appearing, no acute distress and well developed Nutritional Appearance: average body habitus Orientation/consciousness: patient oriented x3 HEENT Head: Yes normal to inspection, Yes normocephalic and Yes atraumatic Face and sinus: Yes normal facial exam Eyes General: appearance normal, both eyes and all related structures Neck Neck: Yes normal visual inspection Resp Effort & Inspection: normal respiratory effort, able to speak in complete sentences, no tracheal deviation and symmetric chest movement Cardio Jugular venous distension: no JVD GI Auscultation: normal bowel sounds Neuro General: patient oriented x3 Gait exam (Neuro): Normal gait present Psych Appearance: grossly normal Mental Status: mental status grossly normal Speech and movement: Normal speech and movement present Affect: normal affect Attitude: cooperative Thought process: Normal thought process present Thought content: Normal thought content present Insight: Good insight present (Psych) Judgement: Good judgement present (Psych) Immunizations Engerix-B (PF) 20 mcg/mL intramuscular suspension Performing Provider: Reba Bishop CNP Performing Location: [facility] Administered by: Silke Reveles RN on 03/05/25 13:28 Dose Route Admin Location Dispensed Lot Number Expiration Date [facility] Rn Clinical Research 1 mL IM Left Deltoid 1 mL [id number] 02/26/27 92876-036-60 Tutor Assignment Total Dispensed Waste 1 mL 0 % VIS Given Date VIS Provided VIS Publication Date 03/05/25 Single Vaccine 22 Eligibility Eligibility Date Funding Source Not [facility] Eligible 03/05/25 Private Assessment & Plan Assessment & Plan (1) Colon cancer screening: Code(s): Z12.11 - Encounter for screening for malignant neoplasm of colon Category: Medical Plan: The patient is cleared for his first screening colonoscopy, as no additional workup is required based on today's discussion and review of recent labs. - An order will be placed for the colonoscopy, and the scheduling team will contact the patient to secure a date. - A prescription for a 4-liter laxative solution (e.g., GoLYTELY) and four lax ative tablets will be sent. - The patient was instructed to stop taking baby aspirin seven days before the procedure. - Instructions for the day before the procedure include a clear liquid diet, avoiding red, blue, and purple colors, and completing the two-part bowel preparation. - On the day of the procedure, he is to take his levothyroxine and blood pressure medications but must be NPO for four hours before the scheduled time. - Patient must arrange for reliable transportation home due to sedation. (2) Immunization due: Code(s): Z23 - Encounter for immunization Category: Medical Plan: The patient's lab results from September showed he lacks immunity to hepatitis B. - After discussing the risk of alisia the virus and the protective benefit of vaccination, the patient expressed interest. - The patient consented to receive the hepatitis B vaccine, and an order was placed for it to be administered in the clinic today. Plan Follow-up after colonoscopy or sooner as needed Time: I spent a total of 30 minutes on the date of encounter which includes: Preparing to see the patient (reviewed previous documentation, test results and medical history) Performing a medically appropriate exam and/or evaluation Ordering medications, tests, and procedures Documenting clinical information in the health record Orders: Orders Hepatitis B Adult Immunization Today Z23 - Encounter for immunization Referrals GI Procedure Notification Z12.11 - Encounter for screening for malignant neoplasm of colon Medications: New peg 3350-electrolytes 236-22.74-6.74 -5.86 gram until fecal effluent is clear 240 mL PO ONCE 4,000 mL 0RF bisacodyl take four tablets once day of colonoscopy prep 20 mg (4 x 5 mg) PO ONCE 4 tabs 0RF Coding Level of Care Code New Pt New Pt Level 3 (00881) Patient Type New Diagnoses Colon cancer screening Z12.11 Immunization due Z23
[2025-03-05 12:55] VITALS: BP 119/72; PULSE 111; BMI 27.2
--- OUTSIDE RECORDS SUMMARY | 2025-03-05 16:53 | XMS_ITS | Encounter Summary ---
Author Organization [employer] Address [address] [facility] 7t [place] [address] Care Team Providers Care Gas Specialist Name Role Phone Name, Virgilio HAMLIN Primary Care Provider Reason for Visit * Reason Onset Date Comments Appointment Request 04/15/2024 Encounter Details Date Type Department Care Team ([facility] st Contact Info) Description 04/15/2024 Telephone [facility] MEDICINE [address] [place], [place] [phone] Name, MD Virgilio [address] [place] [address] Appointment Request Social History Tobacco Use Types [...] Description 03/24/2025 1:45 PM EST Office Visit [facility] [address] [place] [phone] Name, MD Virgilio [address] [place] [phone] documented as of this encounter Visit Diagnoses Not on filedocumented in this encounter Care Teams Gas Specialist Relationship Specialty Start Date End Date Name, MD Virgilio [address] [place] [phone] PCP - General Internal Medicine 12/04/23 documented as of this encounter
--- OUTSIDE RECORDS SUMMARY | 2025-03-05 16:53 | XMS_ITS | Encounter Summary ---
Author Organization [employer] Address [address] [facility] 7t [place] [address] Care Team Providers Care Exterminator Name Role Phone Name, Virgilio HAMLIN Primary Care Provider [phone] Reason for Visit * Reason Onset Date Comments Med Refill 04/15/2024 Encounter Details Date Type Department Care Team (Late st Contact Info) Description 04/15/2024 Telephone [facility] MEDICINE [address] [place], [place] [phone] Name, MD Virgilio [address] [place] [address] Med Refill Social History Tobacco Use Types [...] 9:29 AM EST Medication was sent to [facility] on 12/19/23 #90 with 1 refill. * Telephone Encounter - Kerri Santana - 04/15/2024 9:11 AM EST TC from pt requesting medication refill. Medications needing refill : amLODIPine (Norvasc) 5 MG tablet To be sent to: [facility] Pharmacy documented in this encounter Plan of Treatment Upcoming Encounters Date Type Department Care Team (Late st Contact Info) Description 03/24/2025 1:45 PM EST Office Visit [facility] [address] [place] [phone] Name, MD Virgilio [address] [place] [address] documented as of this encounter Visit Diagnoses Not on filedocumented in this encounter Care Teams Exterminator Relationship Specialty Start Date End Date Name, MD Virgilio [address] [place] [phone] PCP - General Internal Medicine 12/04/23 documented as of this encounter
--- OUTSIDE RECORDS SUMMARY | 2025-03-05 16:53 | XMS_ITS | Encounter Summary ---
Author Organization [employer] Address [address] [facility] 7t [place] [address] Care Team Providers Care Field Sales Agent Name Role Phone Name, Virgilio HAMLIN Primary Care Provider [phone] Encounter Details Date Type Department Care Team (Late st Contact Info) Description 03/04/2025 Orders Only GENERIC EXTERNAL DATA DEPARTMENT Provider, [...] 03/24/2025 1:45 PM EST Office Visit [facility] MEDICINE [address] [place] [address] Name, MD Virgilio [address] [place] [address] documented as of this encounter Procedures Procedure Name Priority Date/Time Associated Diagnosis Comments CBC WITH AUTO DIFFERENTIAL Routine 03/04/2025 8:00 AM EST SED RATE BY MODIFIED WESTERGREN Routine 03/04/2025 8:00 AM EST C-REACTIVE PROTEIN Routine 03/04/2025 8: 00 AM EST COMPREHENSIVE METABOLIC PANEL Routine 03/04/2025 8:00 AM EST documented in this encounter Results * Sed Rate by Modified Westergren (03/04/2025 8:00 AM EST) Erythrocyte Sedimentation Rate 4 1 - 20 MM/HR [facility] Comment:Patients with polycy themia and many hemoglobin abnormalitiesmay have depressed sed rates whereas patients with anemiamay have elevated sed rates. 03/04/2025 8:00 AM EST 03/04/2025 8:00 AM EST us Generic External Data Provider LAB BLOOD ORDERAB LES Final Result [facility] [address] [place] [address] [phone] * C-reactive Protein (03/04/2025 8:00 AM EST) C Reactive Protein <0.10 < or = 0.50 mg/dL [facility] 03/04/2025 8:00 AM EST 03/04/2025 8:00 AM EST us Generic External Data Provider LAB BLOOD ORDERAB LES Final Result [facility] [address] [place] [address] [phone] * (ABNORMAL) Comprehensive Metabolic Panel (03/04/2025 8:00 AM EST) Pathologist [facility] Sodium 140 135 - 145 mmol/L [facility] Potassium 3.8 3.3 - 5.1 mmol/L [facility] Chloride 108 96 - 108 mmol/L [facility] Carbon Dioxide 26 22 - 29 mmol/L [facility] Anion Gap 10(L) 12 - 20 [facility] Urea Nitrogen (BUN) 11 9 - 16 mg/dL [facility] Creatinine, Serum 0.72 0.5 - 1.4 mg/dL [facility] Estimated Glomerular Filt Rate >60 [facility] Comment:Chronic Kidney Disea se: Estimated GFR < 60 mL/min/1.61h5Vlcwrr Kidney Disease: Estimated GFR < 15 mL/min/1.73m2 Glucose 104 60 - 115 mg/dL [facility] Calcium 9.0 8.4 - 10.2 mg/dL [facility] Bilirubin, Total 0.8 0.0 - 1.0 mg/dL [facility] Aspartate Amino Transferase 33 5 - 37 U/L [facility] Alanine Aminotransferase 29 0 - 40 U/L [facility] Total Protein 7.3 6.5 - 8.0 g/dL [facility] Albumin Level 4.9 3.5 - 5.0 g/dL [facility] Alkaline Phosphatase 79 39 - 117 U/L [facility] 03/04/2025 8:00 AM EST 03/04/2025 8:00 AM EST us Generic External Data Provider LAB BLOOD ORDERAB LES Final Result [facility] [address] [place] [address] [phone] * (ABNORMAL) CBC auto differential (03/04/2025 8:00 AM EST) White Blood Count 7.8 4.8 - 10.8 X10*3/uL [facility] Red Blood Count 4.85 4.60 - 5.80 X10*6/uL [facility] Hemoglobin 14.5 14.0 - 18.0 g/dl [facility] Hematocrit 43.2 42.0 - 52.0 % [facility] Mean Corpuscular Volume 89.1 80.0 - 98.0 fL [facility] Mean Corpuscular Hemoglobin 29.9 27.0 - 33.0 pg [facility] Mean Corpuscular HGB Conc 33.6 31.0 - 36.0 g/dl [facility] Red Cell Distribution Width 13.7 11.0 - 16.0 % [facility] Platelet Count 354 160 - 400 X10*3/uL [facility] Mean Platelet Volume 10.3 9.4 - 12.4 fL [facility] Neutrophils Percent Auto 42.7(L) 45 - 73 % [facility] Imm Gran Pct Auto 0.1 0.0 - 0.4 % [facility] Lymphocytes Percent Auto 41.8(H) 20 - 40 % [facility] Monocytes Percent Auto 10.3 2 - 11 % [facility] Eosinophils Percent Auto 3.3 0 - 4 % [facility] Basophils Percent Auto 1.8 0 - 2 % [facility] NRBC Pct Auto 0.0 0.0 - 0.2 /100WBC [facility] Neutrophils Absolute Auto 3.3 2.0 - 8.3 x10*3/uL [facility] Imm Gran Abs Auto 0.01 0.00 - 0.03 X10*3/uL [facility] Lymphocytes Absolute Auto 3.3 1.2 - 4.9 X10*3/uL [facility] Monocytes Absolute Auto 0.8 0.1 - 1.2 X10*3/uL [facility] Eosinophils Absolute Auto 0.3 0.0 - 0.4 X10*3/uL [facility] Basophils Absolute Auto 0.1 0.0 - 0.2 X10*3/uL [facility] NRBC Abs Auto 0.000 0.0 - 0.012 X10*3/uL [facility] 03/04/2025 8:00 AM EST 03/04/2025 8:00 AM EST us Generic External Data Provider LAB BLOOD ORDERAB LES Final Result Performing Organization Address City/State/[facility] Co de Phone Number [facility] [address] [place] [address] [phone] documented in this encounter Visit Diagnoses Not on filedocumented in this encounter Additional Health Concerns Assessment Noted Time PHQ-9 Depression Total Score: 7 06/20/19 25 10:35 AM EDT documented as of this encounter Care Teams Field Sales Agent Relationship Specialty Start Date End Date Name, MD Virgilio [address] [place] [address] PCP - General Internal Medicine 12/04/23 documented as of this encounter
--- OUTSIDE RECORDS SUMMARY | 2025-03-05 16:53 | XMS_ITS | Clinical Summary ---
Author Organization [employer] Address [address] [facility] 7t [place] [address] Care Team Providers Care Circuit Board Drafter Name Role Phone Name, Virgilio HAMLIN Primary Care Provider [phone] Allergies No known active allergies Medications methotrexate [...] THE MORNING BEFORE BREAKFAST 90 tablet 1 5 8:19 AM EST 12/26/19 25 Active atorvastatin (Lipitor) 20 MG [...] 09/27/2023 Generalized anxiety disorder 09/27/2023 Rheumatoid arthritis (CMS/[facility]) 09/27/2023 Asthma in adult without complication 09/27/2023 Encounters Date Type Department Care Team Description 03/04/2025 Orders Only GENERIC EXTERNAL DATA DEPARTMENT Provider, Generic External Data 02/27/2025 Telephone [facility] MEDICINE [address] [place] [address] Julee Goff RN 02/21/2025 Refill [facility] [address] [place] [address] Virgilio Francisco MD Generalized anxiety disorder 02/10/2025 Refill [facility] [address] [place] [address] Virgilio Francisco MD Rheumatoid arthritis, involving unspecified site, unspecified whether rheumatoid factor present (CMS/HCC) ([facility]) 01/20/2025 Refill [facility] [address] [place] [address] Virgilio Francisco MD Generalized anxiety disorder 01/13/2025 Orders Only [facility] External Provider, [facility] 01/06/2025 Refill [facility] [address] [place] [address] Virgilio Francisco MD Benign essential hypertension; Rheumatoid arthritis, involving unspecified site, unspecified whether rheumatoid factor present (CMS/HCC) ([facility]) 01/04/2025 Refill [facility] [address] [place] [phone] Virgilio Francisco MD Mild intermittent asthma in adult without complication 01/02/2025 Telephone [facility] MEDICINE [address] [place] [address] Fatimah Painter [place] january recalls 01/01/2025 Refill [facility] [address] [place] [address] Virgilio Francisco MD Hypercholesterolemia; Benign essential hypertension 12/25/2024 Refill [facility] [address] [place] [phone] Virgilio Francisco MD Hypothyroidism, unspecified type 12/18/2024 Refill [facility] [address] [place] [address] Name, MD Virgilio Generalized anxiety disorder from [...] Description 03/24/2025 1:45 PM EST Office Visit [facility] MED[facility]INE [address] [place] [phone] Name, MD Virgilio [address] [place] [address] Health Maintenance Due Date Last Done Comments [...] Procedure Name Priority Date/Time Associated Diagnosis Comments SED RATE BY MODIFIED WESTERGREN Routine 03/04/2025 8:00 AM EST C-REACTIVE PROTEIN Routine 03/04/2025 8: 00 AM EST COMPREHENSIVE METABOLIC PANEL Routine 03/04/2025 8:00 AM EST CBC WITH AUTO DIFFERENTIAL Routine 03/04/2025 8:00 AM EST XR HIP BILATERAL WITH PELVIS 1 VIEW [...] Maintenance Results * (ABNORMAL) CBC auto differential (03/04/2025 8:00 AM EST) White Blood Count 7.8 4.8 - 10.8 X10*3/uL [facility] Red Blood Count 4.85 4.60 - 5.80 X10*6/uL [facility] Hemoglobin 14.5 14.0 - 18.0 g/dl [facility] Hematocrit 43.2 42.0 - 52.0 % [facility] Mean Corpuscular Volume 89.1 80.0 - 98.0 fL [facility] Mean Corpuscular Hemoglobin 29.9 27.0 - 33.0 pg [facility] Mean Corpuscular HGB Conc 33.6 31.0 - 36.0 g/dl [facility] Red Cell Distribution Width 13.7 11.0 - 16.0 % [facility] Platelet Count 354 160 - 400 X10*3/uL [facility] Mean Platelet Volume 10.3 9.4 - 12.4 fL [facility] Neutrophils Percent Auto 42.7(L) 45 - 73 % [facility] Imm Gran Pct Auto 0.1 0.0 - 0.4 % [facility] Lymphocytes Percent Auto 41.8(H) 20 - 40 % [facility] Monocytes Percent Auto 10.3 2 - 11 % [facility] Eosinophils Percent Auto 3.3 0 - 4 % [facility] Basophils Percent Auto 1.8 0 - 2 % [facility] NRBC Pct Auto 0.0 0.0 - 0.2 /100WBC [facility] Neutrophils Absolute Auto 3.3 2.0 - 8.3 x10*3/uL [facility] Imm Gran Abs Auto 0.01 0.00 - 0.03 X10*3/uL [facility] Lymphocytes Absolute Auto 3.3 1.2 - 4.9 X10*3/uL [facility] Monocytes Absolute Auto 0.8 0.1 - 1.2 X10*3/uL [facility] Eosinophils Absolute Auto 0.3 0.0 - 0.4 X10*3/uL [facility] Basophils Absolute Auto 0.1 0.0 - 0.2 X10*3/uL [facility] NRBC Abs Auto 0.000 0.0 - 0.012 X10*3/uL [facility] 03/04/2025 8:00 AM EST 03/04/2025 8:00 AM EST Generic External Data Provider LAB BLOOD ORDERAB LES Final Result Performing Organization Address [facility] Co de Phone Number [facility] [address] [place] [phone] * Sed Rate by Modified Westergren (03/04/2025 8:00 AM EST) Pathologist [facility] Erythrocyte Sedimentation Rate 4 1 - 20 MM/HR [facility] Comment:Patients with polycy themia and many hemoglobin abnormalitiesmay have depressed sed rates whereas patients with anemiamay have elevated sed rates. 03/04/2025 8:00 AM EST 03/04/2025 8:00 AM EST Generic External Data Provider LAB BLOOD ORDERAB LES Final Result Performing Organization Address [facility] Co de Phone Number [facility] [address] [place] [phone] * C-reactive Protein (03/04/2025 8:00 AM EST) Pathologist [facility] C Reactive Protein <0.10 < or = 0.50 mg/dL [facility] 03/04/2025 8:00 AM EST 03/04/2025 8:00 AM EST us Generic External Data Provider LAB BLOOD ORDERAB LES Final Result Performing Organization Address City/[facility]/ZIP Co de Phone Number [facility] [address] [place] [address] [phone] * (ABNORMAL) Comprehensive Metabolic Panel (03/04/2025 8:00 AM EST) Sodium 140 135 - 145 mmol/L [facility] Potassium 3.8 3.3 - 5.1 mmol/L [facility] Chloride 108 96 - 108 mmol/L [facility] Carbon Dioxide 26 22 - 29 mmol/L [facility] Anion Gap 10(L) 12 - 20 [facility] Urea Nitrogen (BUN) 11 9 - 16 mg/dL [facility] Creatinine, Serum 0.72 0.5 - 1.4 mg/dL [facility] Estimated Glomerular Filt Rate >60 [facility] Comment:Chronic Kidney Disea se: Estimated GFR < 60 mL/min/1.17o4Xwepkh Kidney Disease: Estimated GFR < 15 mL/min/1.73m2 Glucose 104 60 - 115 mg/dL [facility] Calcium 9.0 8.4 - 10.2 mg/dL [facility] Bilirubin, Total 0.8 0.0 - 1.0 mg/dL [facility] Aspartate Amino Transferase 33 5 - 37 U/L [facility] Alanine Aminotransferase 29 0 - 40 U/L [facility] Total Protein 7.3 6.5 - 8.0 g/dL [facility] Albumin Level 4.9 3.5 - 5.0 g/dL [facility] Alkaline Phosphatase 79 39 - 117 U/L [facility] 03/04/2025 8:00 AM EST 03/04/2025 8:00 AM EST us Generic External Data Provider LAB BLOOD ORDERAB LES Final Result [facility] [address] [place] [phone] * XR Hips Bilateral with Pelvis 1 view (01/13/2025 9:51 AM EDT) Anatomical Region Laterality Modality Lower Extremities, Hip Bilateral Radiograp hic Imaging 01/13/2025 9:51 AM EDT Narrative 01/14/2025 11:45 AM EDT [address] [address] XRay Report Signed Patient: Power Alvarado MR#: [id number] : 1970 Acct:[id number] Age/Sex: 54 / M ADM Date: 01/13/25 Loc: [facility] Attending Dr: Matilde HAMMOND Ordering Physician: Matilde Lowe Date of Service: 01/13/25 Procedure(s): XR hip BI w PEL1V Accession Number(s): [id number] cc: Matilde Lowe; Name,Virgilio HAMLIN Reason for [...] Lopez MD in OV> 01/14/25 1142 DD/ 0 TD/TT: 01/13/25958 Lcsw: JESUSITA Procedure Note Donotuseinterpreter, Image - 01/14/[address] [address] XRay Report Signed Patient: Power Alvarado FMR#: [id number] : 1970Acct:[id number] Age/Sex: 54 / MADM Date: 01/13/25 Loc: HO.XRAY Attending Dr: Matilde HAMMOND Ordering Physician: Matilde Lowe Date of Service: 01/13/25 Procedure(s): XR hip BI w PEL1V Accession Number(s): [id number] cc: Matilde Lowe; Name,Virgilio HAMLIN Reason for [...] Lopez MD in OV> 01/14/25 1142 DD/ 0 TD/TT: 01/13/25958 Lcsw: JESUSITA [facility] External Provider IMG XR PROCEDURES Final Result * XR Lumbar Spine Complete 4+ Views (01/13/2025 9:49 AM EDT) Anatomical Region Laterality Modality Spine, L-spine Radiographic Ricarda ging 01/13/2025 9:49 AM EDT Narrative 01/14/2025 12:56 PM EDT [address] [address] XRay Report Signed Patient: Power Alvarado MR#: [id number] : 1970 Acct:[id number] Age/Sex: 54 / M ADM Date: 01/13/25 Loc: HO.ADRIANE Attending Dr: Matilde HAMMOND Ordering Physician: Matilde Lowe Date of Service: 01/13/25 Procedure(s): XR lumbar spine 4V min Accession Number(s): [id number] cc: Matilde Lowe; Name,Virgilio HAMLIN Reason for [...] Lopez MD in OV> 01/14/25 1253 DD/ TD/TT: 01/13/25 0959 Lcsw: JESUSITA Procedure Note Donotuseinterpreter, Image - 01/14/[address] [address] XRay Report Signed Patient: Power Alvarado FMR#: [id number] : 1970Acct:[id number] Age/Sex: 54 / MADM Date: 01/13/25 Loc: HO.[place] Attending Dr: Matilde HAMMOND Ordering Physician: Matilde Lowe Date of Service: 01/13/25 Procedure(s): XR lumbar spine 4V min Accession Number(s): [id number] cc: Matilde Lowe; Name,Virgilio HAMLIN Reason for [...] Lopez MD in OV> 01/14/25 1253 DD/ TD/TT: 01/13/25 0959 Lcsw: JESUSITA [facility] External Provider IMG XR PROCEDURES Final Result * Hepatitis Panel, General (10/15/2024 9:36 AM EDT) Hepatitis A IgM Nonreactive Nonreactive [facility] Comment:IgM antibodies to GUZMAN V not detected; does not exclude earlyacute or recovered HAV infection. ~Hepatitis B Surface Antibody NONREACTIVE Nonreactive [facility] Comment:Nonreactive: < 8.00 mIU/mL Hepatitis B Core Antibody Nonreactive Nonreactive [facility] Hepatitis C Antibody Nonreactive Nonreactive [facility] Comment:Antibodies to HCV no t detected; does not exclude early acuteHCV infection. Hepatitis B Surface Ag Negative Negative [facility] 10/15/2024 9:36 AM EDT 10/15/2024 11:17 AM EDT us Generic External Data Provider LAB BLOOD ORDERAB LES Final Result Performing Organization Address [facility] Co de Phone Number [facility] [address] [place] [address] [phone] * Lipid Panel, Standard (06/16/2023 10:12 AM EDT) Triglycerides 97 <150 mg/dL [facility] Comment:Desirable Triglyceri de: less than 150 mg/dLBorderline High Triglyceride 150-199 mg/dLHigh Triglyceride: 200-499 mg/dLVery High Triglyceride: greater than or equal to 5OO mg/dL Cholesterol 149 <200 mg/dL [facility] Comment:Desirable Cholestero l: less than 200 mg/dLBorderline High Cholesterol: 200-239 mg/dLHigh Cholesterol: greater than 239 mg/dL LDL Cholesterol Calculated 69 <100 mg/dL [facility] Comment:Desirable LDL: less than 100 mg/dLNear Optimal/Above Optimal LDL: 110- 129 mg/dLBorderline High LDL: 130-159 mg/dLHigh LDL: 160-189 mg/dLVery High LDL: greater than or equal to 190 mg/dL HDL Cholesterol 61 >40 mg/dL [facility] Comment:Desirable HDL: great er than 40 mg/dL Note: This HDL assay may give artificially low results in patients with liver disease. Blood Venous blood specimen / Unknown 06/16/2023 10:12 AM EDT 06/16/2023 11:19 AM EDT us Gurinder Dawson MD LAB BLOOD ORDERABLES Final Resul t Performing Organization Address City/[facility]/ZIP Co de Phone Number [facility] [address] [place] [address] [phone] from Last 3 Months or Most Recently Relevant to Health Maintenance Insurance [place] [facility] MEDICAID STAND ADULT Care Teams Circuit Board Drafter Relationship Specialty Start Date End Date Name, MD Virgilio [address] [place] [phone] PCP - General Internal Medicine 12/04/23
== END 2025-03-05 13:33 | disposition home or self-care (01) ==
LOC: HO.HGI 12:44
PROVIDERS: PCP Internal Medicine Geriatric Medicine; Visit Provider Nurse Practitioner Family
DX: Z12.11 Encounter for screening for malignant neoplasm of colon (principal); Z23 Encounter for immunization
CPT/HCPCS: 99024

== ENCOUNTER → 2025-03-05 12:44 | Outpatient (BNVA) | payer MEDICARE, MEDICAID, SELFPAY | PROVIDERS: PCP Internal Medicine Geriatric Medicine; Visit Provider Nurse Practitioner Family | DX: Z01.818 Encounter for other preprocedural examination (principal); Z23 Encounter for immunization | CPT/HCPCS: 90471; 90746; 99212 ==

== ENCOUNTER 2025-03-07 08:27 | Outpatient (AMB) | payer MEDICARE, MEDICAID, SELFPAY ==
--- OUTSIDE RECORDS SUMMARY | 2025-03-07 08:33 | XMS_ITS | Encounter Summary ---
Author Organization [employer] Address [address] [facility] 7t [place] [address] Care Team Providers Care Light Rail Train Operator Name Role Phone Name, Virgilio HAMLIN Primary Care Provider [phone] Encounter Details Date Type Department Care Team [...] Description 03/24/2025 1:45 PM EST Office Visit [facility] MEDICINE [address] [place] [address] Name, MD Virgilio [address] [place] [address] documented as of this encounter Procedures Procedure [...] Sedimentation Rate 4 1 - 20 MM/HR [facility] Comment:Patients with polycy themia and many hemoglobin abnormalitiesmay have depressed sed rates whereas patients with anemiamay have elevated sed rates. 03/04/2025 8:00 AM EST 03/04/2025 8:00 AM EST us Generic External Data Provider LAB BLOOD ORDERAB LES Final Result [facility] [address] [place] [address] [phone] * C-reactive Protein (03/04/2025 8:00 AM EST) C Reactive Protein <0.10 < or = 0.50 mg/dL [facility] 03/04/2025 8:00 AM EST 03/04/2025 8:00 AM EST us Generic External Data Provider LAB BLOOD ORDERAB LES Final Result [facility] [address] [place] [address] [phone] * (ABNORMAL) Comprehensive Metabolic Panel (03/04/2025 8:00 AM EST) Pathologist [facility] Sodium 140 135 - 145 mmol/L [facility] Potassium 3.8 3.3 - 5.1 mmol/L [facility] Chloride 108 96 - 108 mmol/L [facility] Carbon Dioxide 26 22 - 29 mmol/L [facility] Anion Gap 10(L) 12 - 20 [facility] Urea Nitrogen (BUN) 11 9 - 16 mg/dL [facility] Creatinine, Serum 0.72 0.5 - 1.4 mg/dL [facility] Estimated Glomerular Filt Rate >60 [facility] Comment:Chronic Kidney Disea se: Estimated GFR < 60 mL/min/1.80a8Ewtpac Kidney Disease: Estimated GFR < 15 mL/min/1.73m2 Glucose 104 60 - 115 mg/dL [facility] Calcium 9.0 8.4 - 10.2 mg/dL [facility] Bilirubin, Total 0.8 0.0 - 1.0 mg/dL [facility] Aspartate Amino Transferase 33 5 - 37 U/L [facility] Alanine Aminotransferase 29 0 - 40 U/L [facility] Total Protein 7.3 6.5 - 8.0 g/dL [facility] Albumin Level 4.9 3.5 - 5.0 g/dL [facility] Alkaline Phosphatase 79 39 - 117 U/L [facility] 03/04/2025 8:00 AM EST 03/04/2025 8:00 AM EST us Generic External Data Provider LAB BLOOD ORDERAB LES Final Result [facility] [address] [place] [address] [phone] * (ABNORMAL) CBC auto differential (03/04/2025 8:00 AM EST) White Blood Count 7.8 4.8 - 10.8 X10*3/uL [facility] Red Blood Count 4.85 4.60 - 5.80 X10*6/uL [facility] Hemoglobin 14.5 14.0 - 18.0 g/dl [facility] Hematocrit 43.2 42.0 - 52.0 % [facility] Mean Corpuscular Volume 89.1 80.0 - 98.0 fL [facility] Mean Corpuscular Hemoglobin 29.9 27.0 - 33.0 pg [facility] Mean Corpuscular HGB Conc 33.6 31.0 - 36.0 g/dl [facility] Red Cell Distribution Width 13.7 11.0 - 16.0 % [facility] Platelet Count 354 160 - 400 X10*3/uL [facility] Mean Platelet Volume 10.3 9.4 - 12.4 fL [facility] Neutrophils Percent Auto 42.7(L) 45 - 73 % [facility] Imm Gran Pct Auto 0.1 0.0 - 0.4 % [facility] Lymphocytes Percent Auto 41.8(H) 20 - 40 % [facility] Monocytes Percent Auto 10.3 2 - 11 % [facility] Eosinophils Percent Auto 3.3 0 - 4 % [facility] Basophils Percent Auto 1.8 0 - 2 % [facility] NRBC Pct Auto 0.0 0.0 - 0.2 /100WBC [facility] Neutrophils Absolute Auto 3.3 2.0 - 8.3 x10*3/uL [facility] Imm Gran Abs Auto 0.01 0.00 - 0.03 X10*3/uL [facility] Lymphocytes Absolute Auto 3.3 1.2 - 4.9 X10*3/uL [facility] Monocytes Absolute Auto 0.8 0.1 - 1.2 X10*3/uL [facility] Eosinophils Absolute Auto 0.3 0.0 - 0.4 X10*3/uL [facility] Basophils Absolute Auto 0.1 0.0 - 0.2 X10*3/uL [facility] NRBC Abs Auto 0.000 0.0 - 0.012 X10*3/uL [facility] 03/04/2025 8:00 AM EST 03/04/2025 8:00 AM EST us Generic External Data Provider LAB BLOOD ORDERAB LES Final Result Performing Organization Address City/State/[facility] Co de Phone Number [facility] [address] [place] [address] [phone] documented in this encounter Visit Diagnoses Not on filedocumented in this encounter Additional Health Concerns Assessment Noted Time PHQ-9 Depression Total Score: 7 06/20/19 25 10:35 AM EDT documented as of this encounter Care Teams Light Rail Train Operator Relationship Specialty Start Date End Date Name, MD Virgilio [address] [place] [address] PCP - General Internal Medicine 12/04/23 documented as of this encounter
--- OUTSIDE RECORDS SUMMARY | 2025-03-07 08:33 | XMS_ITS | Encounter Summary ---
Author Organization [employer] Address [address] [facility] [address] [place] [address] Care Team Providers Care Supervisor Extrusion Name Role Phone Name, Virgilio HAMLIN Primary Care Provider [phone] Reason for Visit * Reason Onset Date Comments Med Refill 04/15/2024 Encounter Details Date Type Department Care Team (Late st Contact Info) Description 04/15/2024 Telephone [facility] MEDICINE [address] [place], [place] [phone] Name, MD Virgilio [address] [place] [address] Med Refill Social History Tobacco Use Types [...] 9:29 AM EST Medication was sent to [facility] on 12/19/23 #90 with 1 refill. * Telephone Encounter - Kerri Santana - 04/15/2024 9:11 AM EST TC from pt requesting medication refill. Medications needing refill : amLODIPine (Norvasc) 5 MG tablet To be sent to: [facility] documented in this encounter Plan of Treatment Upcoming Encounters Date Type Department Care Team (Late st Contact Info) Description 03/24/2025 1:45 PM EST Office Visit [facility] MEDICINE [address] [place] [address] Name, MD Virgilio [address] [place] [address] documented as of this encounter Visit Diagnoses Not on filedocumented in this encounter Care Teams Supervisor Extrusion Relationship Specialty Start Date End Date Name, MD Virgilio [address] [place] [phone] PCP - General Internal Medicine 12/04/23 documented as of this encounter
--- OUTSIDE RECORDS SUMMARY | 2025-03-07 08:33 | XMS_ITS | Clinical Summary ---
Author Organization [employer] Address [address] [facility] 7t [place] [address] Care Team Providers Care Pipe Organ Tuner And Repairer Name Role Phone Name, Virgilio HAMLIN Primary Care Provider Allergies No known active allergies Medications methotrexate [...] 09/27/2023 Generalized anxiety disorder 09/27/2023 Rheumatoid arthritis (CMS/[facility]) 09/27/2023 Asthma in adult without complication 09/27/2023 Encounters Date Type Department Care Team Description 03/04/2025 Orders Only GENERIC EXTERNAL DATA DEPARTMENT Provider, Generic External Data 02/27/2025 Telephone [facility] MEDICINE [address] [place] [address] Julee Goff RN 02/21/2025 Refill [facility] CHC MED & PEDS [address] [place] [address] Virgilio Francisco MD Generalized anxiety disorder 02/10/2025 Refill [facility] PED[facility] [address] [place] [address] Virgilio Francisco MD Rheumatoid arthritis, involving unspecified site, unspecified whether rheumatoid factor present (CMS/HCC) ([facility]) 01/20/2025 Refill [facility] [address] [place] [address] Virgilio Francisco MD Generalized anxiety disorder 01/13/2025 Orders Only [facility] External Provider, [facility] 01/06/2025 Refill [facility] CH[facility] MED & PEDS [address] [place] [address] Virgilio Francisco MD Benign essential hypertension; Rheumatoid arthritis, involving unspecified site, unspecified whether rheumatoid factor present (CMS/HCC) ([facility]) 01/04/2025 Refill [facility] WALK-IN CENTER [address] [place] [phone] Virgilio Francisco MD Mild intermittent asthma in adult without complication 01/02/2025 Telephone [facility] MEDICINE [address] [place] [address] Fatimah Painter [place] january recalls 01/01/2025 Refill [facility] WALK-IN CENTER [address] [place] [address] Virgilio Francisco MD Hypercholesterolemia; Benign essential hypertension 12/25/2024 Refill [facility] WALK-IN CENTER [address] [place] [address] Virgilio Francisco MD Hypothyroidism, unspecified type 12/18/2024 Refill [facility] CHC MED & PEDS [address] [place] [address] Name, MD Virgilio Generalized anxiety disorder from [...] Description 03/24/2025 1:45 PM EST Office Visit [facility] MEDICINE [address] [place] [address] Name, MD Virgilio [address] [place] [address] Health Maintenance Due Date Last Done Comments [...] Blood Count 7.8 4.8 - 10.8 X10*3/uL [facility] Red Blood Count 4.85 4.60 - 5.80 X10*6/uL [facility] Hemoglobin 14.5 14.0 - 18.0 g/dl [facility] Hematocrit 43.2 42.0 - 52.0 % [facility] Mean Corpuscular Volume 89.1 80.0 - 98.0 fL [facility] Mean Corpuscular Hemoglobin 29.9 27.0 - 33.0 pg [facility] Mean Corpuscular HGB Conc 33.6 31.0 - 36.0 g/dl [facility] Red Cell Distribution Width 13.7 11.0 - 16.0 % [facility] Platelet Count 354 160 - 400 X10*3/uL [facility] Mean Platelet Volume 10.3 9.4 - 12.4 fL [facility] Neutrophils Percent Auto 42.7(L) 45 - 73 % [facility] Imm Gran Pct Auto 0.1 0.0 - 0.4 % [facility] Lymphocytes Percent Auto 41.8(H) 20 - 40 % [facility] Monocytes Percent Auto 10.3 2 - 11 % [facility] Eosinophils Percent Auto 3.3 0 - 4 % [facility] Basophils Percent Auto 1.8 0 - 2 % [facility] NRBC Pct Auto 0.0 0.0 - 0.2 /100WBC [facility] Neutrophils Absolute Auto 3.3 2.0 - 8.3 x10*3/uL [facility] Imm Gran Abs Auto 0.01 0.00 - 0.03 X10*3/uL [facility] Lymphocytes Absolute Auto 3.3 1.2 - 4.9 X10*3/uL [facility] Monocytes Absolute Auto 0.8 0.1 - 1.2 X10*3/uL [facility] Eosinophils Absolute Auto 0.3 0.0 - 0.4 X10*3/uL [facility] Basophils Absolute Auto 0.1 0.0 - 0.2 X10*3/uL [facility] NRBC Abs Auto 0.000 0.0 - 0.012 X10*3/uL [facility] 03/04/2025 8:00 AM EST 03/04/2025 8:00 AM EST Generic External Data Provider LAB BLOOD ORDERAB LES Final Result Performing Organization Address [facility] Co de Phone Number [facility] [address] [place] [phone] * Sed Rate by Modified Westergren (03/04/2025 8:00 AM EST) Pathologist [facility] Erythrocyte Sedimentation Rate 4 1 - 20 MM/HR [facility] Comment:Patients with polycy themia and many hemoglobin abnormalitiesmay have depressed sed rates whereas patients with anemiamay have elevated sed rates. 03/04/2025 8:00 AM EST 03/04/2025 8:00 AM EST Generic External Data Provider LAB BLOOD ORDERAB LES Final Result Performing Organization Address [facility] Co de Phone Number [facility] [address] [place] [phone] * C-reactive Protein (03/04/2025 8:00 AM EST) Pathologist [facility] C Reactive Protein <0.10 < or = 0.50 mg/dL [facility] 03/04/2025 8:00 AM EST 03/04/2025 8:00 AM EST us Generic External Data Provider LAB BLOOD ORDERAB LES Final Result Performing Organization Address City/[facility]/ZIP Co de Phone Number [facility] [address] [place] [address] [phone] * (ABNORMAL) Comprehensive Metabolic Panel (03/04/2025 8:00 AM EST) Sodium 140 135 - 145 mmol/L [facility] Potassium 3.8 3.3 - 5.1 mmol/L [facility] Chloride 108 96 - 108 mmol/L [facility] Carbon Dioxide 26 22 - 29 mmol/L [facility] Anion Gap 10(L) 12 - 20 [facility] Urea Nitrogen (BUN) 11 9 - 16 mg/dL [facility] Creatinine, Serum 0.72 0.5 - 1.4 mg/dL [facility] Estimated Glomerular Filt Rate >60 [facility] Comment:Chronic Kidney Disea se: Estimated GFR < 60 mL/min/1.13c5Lxhmfg Kidney Disease: Estimated GFR < 15 mL/min/1.73m2 Glucose 104 60 - 115 mg/dL [facility] Calcium 9.0 8.4 - 10.2 mg/dL [facility] Bilirubin, Total 0.8 0.0 - 1.0 mg/dL [facility] Aspartate Amino Transferase 33 5 - 37 U/L [facility] Alanine Aminotransferase 29 0 - 40 U/L [facility] Total Protein 7.3 6.5 - 8.0 g/dL [facility] Albumin Level 4.9 3.5 - 5.0 g/dL [facility] Alkaline Phosphatase 79 39 - 117 U/L [facility] 03/04/2025 8:00 AM EST 03/04/2025 8:00 AM EST us Generic External Data Provider LAB BLOOD ORDERAB LES Final Result [facility] [address] [place] [phone] * XR Hips Bilateral with Pelvis 1 view (01/13/2025 9:51 AM EDT) Anatomical Region Laterality Modality Lower Extremities, Hip Bilateral Radiograp hic Imaging 01/13/2025 9:51 AM EDT Narrative 01/14/2025 11:45 AM EDT [address] [address] XRay Report Signed Patient: Power Alvarado MR#: [id number] : 1970 Acct:[id number] Age/Sex: 54 / M ADM Date: 01/13/25 Loc: [facility] Attending Dr: Matilde HAMMOND Ordering Physician: Matilde Lowe Date of Service: 01/13/25 Procedure(s): XR hip BI w PEL1V Accession Number(s): [id number] cc: Matilde Lowe; Name,Virgilio HAMLIN Reason for [...] OV> 01/14/25 1142 DD/ 0 TD/TT: 01/13/25958 Commercial Mortgage Broker: JESUSITA Procedure Note Donotuseinterpreter, Image - 01/14/[address] [address] XRay Report Signed Patient: Power Alvarado FMR#: [id number] : 1970Acct:[id number] Age/Sex: 54 / MADM Date: 01/13/25 Loc: HO.XRAY Attending Dr: Matilde HAMMOND Ordering Physician: Matilde Lowe Date of Service: 01/13/25 Procedure(s): XR hip BI w PEL1V Accession Number(s): [id number] cc: Matilde Lowe; Name,Virgilio HAMLIN Reason for [...] OV> 01/14/25 1142 DD/ 0 TD/TT: 01/13/25958 Commercial Mortgage Broker: JESUSITA [facility] External Provider IMG XR PROCEDURES Final Result * XR Lumbar Spine Complete 4+ Views (01/13/2025 9:49 AM EDT) Anatomical Region Laterality Modality Spine, L-spine Radiographic Ricarda ging 01/13/2025 9:49 AM EDT Narrative 01/14/2025 12:56 PM EDT [address] [address] XRay Report Signed Patient: Power Alvarado MR#: [id number] : 1970 Acct:[id number] Age/Sex: 54 / M ADM Date: 01/13/25 Loc: HO.ADRIANE Attending Dr: Matilde HAMMOND Ordering Physician: Matilde Lowe Date of Service: 01/13/25 Procedure(s): XR lumbar spine 4V min Accession Number(s): [id number] cc: Matilde Lowe; Name,Virgilio HAMLIN Reason for [...] OV> 01/14/25 1253 DD/ TD/TT: 01/13/25 0959 Commercial Mortgage Broker: JESUSITA Procedure Note Donotuseinterpreter, Image - 01/14/[address] [address] XRay Report Signed Patient: Power Alvarado FMR#: [id number] : 1970Acct:[id number] Age/Sex: 54 / MADM Date: 01/13/25 Loc: HO.SANKETAY Attending Dr: Matilde HAMMOND Ordering Physician: Matilde Lowe Date of Service: 01/13/25 Procedure(s): XR lumbar spine 4V min Accession Number(s): [id number] cc: Matilde Lowe; Name,Virgilio HAMLIN Reason for [...] OV> 01/14/25 1253 DD/ TD/TT: 01/13/25 0959 Commercial Mortgage Broker: JESUSITA [facility] External Provider IMG XR PROCEDURES Final Result * Hepatitis Panel, General (10/15/2024 9:36 AM EDT) Hepatitis A IgM Nonreactive Nonreactive [facility] Comment:IgM antibodies to GUZMAN V not detected; does not exclude earlyacute or recovered HAV infection. ~Hepatitis B Surface Antibody NONREACTIVE Nonreactive [facility] Comment:Nonreactive: < 8.00 mIU/mL Hepatitis B Core Antibody Nonreactive Nonreactive [facility] Hepatitis C Antibody Nonreactive Nonreactive [facility] Comment:Antibodies to HCV no t detected; does not exclude early acuteHCV infection. Hepatitis B Surface Ag Negative Negative [facility] 10/15/2024 9:36 AM EDT 10/15/2024 11:17 AM EDT us Generic External Data Provider LAB BLOOD ORDERAB LES Final Result Performing Organization Address [facility] Co de Phone Number [facility] [address] [place] [address] [phone] * Lipid Panel, Standard (06/16/2023 10:12 AM EDT) Triglycerides 97 <150 mg/dL [facility] Comment:Desirable Triglyceri de: less than 150 mg/dLBorderline High Triglyceride 150-199 mg/dLHigh Triglyceride: 200-499 mg/dLVery High Triglyceride: greater than or equal to 5OO mg/dL Cholesterol 149 <200 mg/dL [facility] Comment:Desirable Cholestero l: less than 200 mg/dLBorderline High Cholesterol: 200-239 mg/dLHigh Cholesterol: greater than 239 mg/dL LDL Cholesterol Calculated 69 <100 mg/dL [facility] Comment:Desirable LDL: less than 100 mg/dLNear Optimal/Above Optimal LDL: 110- 129 mg/dLBorderline High LDL: 130-159 mg/dLHigh LDL: 160-189 mg/dLVery High LDL: greater than or equal to 190 mg/dL HDL Cholesterol 61 >40 mg/dL [facility] Comment:Desirable HDL: great er than 40 mg/dL Note: This HDL assay may give artificially low results in patients with liver disease. Blood Venous blood specimen / Unknown 06/16/2023 10:12 AM EDT 06/16/2023 11:19 AM EDT us Gurinder Dawson MD LAB BLOOD ORDERABLES Final Resul t Performing Organization Address City/[facility]/ZIP Co de Phone Number [facility] [address] [place] [address] [phone] from Last 3 Months or Most Recently Relevant to Health Maintenance Insurance [place] [facility] MEDICAID STAND ADULT Care Teams Pipe Organ Tuner And Repairer Relationship Specialty Start Date End Date Name, MD Virgilio [address] [place] [phone] PCP - General Internal Medicine 12/04/23
--- OUTSIDE RECORDS SUMMARY | 2025-03-07 08:33 | XMS_ITS | Encounter Summary ---
Author Organization [employer] Address [address] [facility] [address]t [place] [address] Care Team Providers Care Depot Manager Name Role Phone Name, Virgilio HAMLIN Primary Care Provider [phone] Reason for Visit * Reason Onset Date Comments Appointment Request 04/15/2024 Encounter Details Date Type Department Care Team ([facility] st Contact Info) Description 04/15/2024 Telephone [facility] MEDICINE [address] [place], [place] [phone] Name, MD Virgilio [address] [place] [address] Appointment Request Social History Tobacco Use Types [...] Office Visit [facility] MEDICINE [address] [place] [phone] Name, MD Virgilio [address] [place] [phone] documented as of this encounter Visit Diagnoses Not on filedocumented in this encounter Care Teams Depot Manager Relationship Specialty Start Date End Date Name, MD Virgilio [address] [place] [phone] PCP - General Internal Medicine 12/04/23 documented as of this encounter
--- NOTE | 2025-03-07 08:34 | MHC.OFFVIS ---
Vital Signs 03/07/25 08:55 Height 5 ft 7 in Weight 172 lb 13.478 oz BMI 27.1 BP 132/80 Blood Pressure Location Lt brachial Position Sitting Pulse 104 H Pulse Source Pulse Oximeter Pulse Oximetry (%) 98 Oxygen Delivery Method Room Air Intake Visit Reasons: 4months Intake Note: Patient presents today for RA follow up and test results. Delivery Truck Driver Heavy Required: No Delivery Truck Driver Heavy Services: Delivery Truck Driver Heavy Present Delivery Truck Driver Heavy Name: Fiorella [id number] Information Interpreted: non-clinical & clinical Crackling Press Operator: Crackling Press Operator Present (Joyce Morocho) Accompanied by: Sister Allergies No Known Allergies Allergy (Verified 03/05/25 12:51) HPI Comments Details: Patient is a 54-year-old male with hypertension, hyperlipidemia, hypothyroidism on levothyroxine and depression who presents for follow-up of rheumatoid arthritis Interval History: Last seen 11/07/24 with me. - On Leflunomide 20mg daily - Doing better - Still complaining of polyarticular joint pain especially his low back - Referred to pain management Today - On leflunomide 20mg daily - Saw pain management 01/13/2025. Plan is to do a diagnostic bilateral L3-L4-L5 medial branch blocks - Doing well overall - No new complaints - Has appointment with pain management for procedure 03/25/2025 Rheumatologic History: Patient establish care 12/2023 after recently emig[place] the [place] that year. Diagnosed with RA at the age of 51 and was managed mainly with meloxicam. Patient is started on prednisone taper with plans to initiate methotrexate at following visit Methotrexate 12/2023 - 10/2024. Worsening transaminitis Leflunomide 11/2024 Current Rheumatology Medication(s): Leflunomide 20mg daily [facility] [place] Medical History (Updated 03/05/25 @ 13:30 by Reba Bishop CNP) Immunization due Colon cancer screening Osteoarthritis of lower back Seropositive rheumatoid arthritis Asthma in adult without complication Generalized anxiety disorder Hypothyroidism Hypercholesterolemia Benign essential hypertension Tobacco dependence Pain in left knee Social History Household Members: Family Housing: House Alcohol intake: current Comment: Rare Patient Tobacco Use Status: Former Tobacco user Tobacco use type: Cigarette Cigarette Packs Per Day: 1 Years Smoked: 40 Review of Systems Narrative Review of Systems Constitutional: Denies fever, chills, weight loss ENT: Denies vision changes, eye pain or eye redness, dental caries, dry mouth GI: Denies nausea, vomiting, diarrhea, abdominal pain, change in BM Pulm: Denies SOB, [place], hemoptysis, wheezing Cards: Denies chest pain, palpitations Skin: Denies Raynaud's, rash, nail changes, photosensitivity, [employer]ENTILATING: Denies headaches, weakness, paresthesias, recurrent falls MSK: as per HPI All other systems reviewed and are unremarkable except noted above Physical Exam Exam Exam: Vital signs reviewed Physical Examination CONSTITUITIONAL Patient alert and cooperative. Well appearing and in no apparent painful distress MSK Hands Right Hand: Able to make a fist. No swelling or tenderness to palpation of the MCPs, PIPs or DIPs. Left Hand: Able to make a fist. No swelling or tenderness to palpation of the MCPs, PIPs or DIPs. Herbedens nodes noted bilaterally Has some small, mobile, firm structures just distal to the PIPs on a few digits Wrists Right Wrist: Full ROM to flexion and extension. No swelling or TTP Left Wrist: Full ROM to flexion and extension. No swelling or TTP Elbows Right Elbow: Full ROM. No swelling or TTP. No TTP of the medial epicondyle. No TTP of the lateral epicondyle Left Elbow: Full ROM. No swelling or TTP. No TTP of the medial epicondyle. No TTP of the lateral epicondyle Shoulders Right shoulder: Decreased ROM. No swelling noted. No TTP of the AC joint. No TTP of the subacromial bursa. No TTP of the posterior shoulder Left shoulder: Decreased ROM. No swelling noted. No TTP of the AC joint. No TTP of the subacromial bursa. No TTP of the posterior shoulder Knees Right knee: Full ROM. No swelling noted. TTP of the knee joint line. No TTP of pes anserine bursa Left knee: Full ROM. No swelling noted. TTP of the knee joint line. No TTP of pes anserine bursa. Ankles Right ankle: Good ankle dorsiflexion and plantar flexion. No swelling. No TTP of the ankle joint Left ankle: Good ankle dorsiflexion and plantar flexion. No swelling. No TTP of the ankle joint Feet Right foot: Negative squeeze test Left foot: Negative squeeze test Tender points? No tenderness to palpation of the bilateral trapezius, supraspinatus, anterior costochondral junctions, bilateral suboccipital muscle insertions TTP of the calf muscles SKIN No rashes Results Reviewed Results Reviewed: Laboratory Tests 03/04/25 08:00 WBC 7.8 RBC 4.85 Hgb 14.5 Hct 43.2 Plt Count 354 ESR 4 Sodium 140 Potassium 3.8 Chloride 108 Carbon Dioxide 26 BUN 11 Creatinine 0.72 AST 33 ALT 29 C-Reactive Protein < 0.10 Laboratory Tests 12/29/23 15:17 Rheumatoid Factor 25.7 H Cycl Citrul Peptide IgG <16 HLA-B27 Negative Laboratory Tests 10/15/24 09:36 Hepatitis A IgM Ab Nonreactive Hep Bs Antigen Negative Hep Bs Antibody NONREACTIVE Hep B Core Total Ab Nonreactive Hepatitis C Ab (EIA) Nonreactive TB Test (T-Spot) Com Negative Assessment & Plan Assessment & Plan (1) Seropositive rheumatoid arthritis: Comment: 12/2023 +RF/-CCP Methotrexate 01/2024 Code(s): M05.9 - Rheumatoid arthritis with rheumatoid factor, unspecified Category: Medical Plan: #Seropositive RA Patient is a 54 year old with seropositive rheumatoid arthritis today for follow up. Doing well on leflunomide. LFTs normalized. Normalized inflammatory markers He is still complaining of some polyarticular joint pain but there is no significant active synovitis. His joint pain may be from OA and not underlying RA activity Plan - Leflunomide 20mg daily - RTC 6 months - Labs before visit: CBC, CMP, ESR, CRP (2) Polyarticular osteoarthritis: Code(s): M15.9 - Polyosteoarthritis, unspecified Plan: #Polyarticular OA Patient polyarticular osteoarthritis complicating his rheumatoid arthritis. At this time I think his joint pain complaints are related to osteoarthritis and not rheumatoid arthritis especially since his inflammatory markers have normalized, there is no further swelling or significant synovitis on examination Continue follow up with pain management (3) Encounter for monitoring leflunomide therapy: Code(s): Z51.81 - Encounter for therapeutic drug level monitoring; Z79.69 - skilled nursing (current) use of other immunomodulators and immunosuppressants Plan: #Long-term leflunomide Discussed with patient the benefits and risks of leflunomide for managing the rheumatic condition Benefits include: - Reduced pain, maintenance of remission and reduction of flares Risks include: - GI upset especially diarrhea, skin rash, cytopenias, hepatotoxicity, weight loss, neuropathy Leflunomide is highly teratogenic. Has a very long half-life. Needs cholestyramine washout if there is desire for Initiation: CBC, BMP, LFTs, hepatitis-B and C serologies every 2-4 weeks for 3 months Monitoring: CBC, BMP, LFTs, hepatitis B and C serologies Plan I spent 25 minutes reviewing the record and labs, taking a history, examining the patient, discussing the treatment plan, ordering diagnostic work up and documenting in the medical record Coding Level of Care Code Est Pt Level 3 (16402) Add On Problem Visit Only Diagnoses Seropositive rheumatoid arthritis M05.9 Polyarticular osteoarthritis M15.9 Encounter for monitoring leflunomide therapy Z51.81; Z79.69
[2025-03-07 08:55] VITALS: BP 132/80; PULSE 104; O2SAT 98; BMI 27.1
== END 2025-03-07 09:24 | disposition home or self-care (01) ==
LOC: HO.RHES 08:27
PROVIDERS: PCP Internal Medicine Geriatric Medicine; Visit Provider Student in an Organized Health Care Education/Training Program
DX: M05.9 Rheumatoid arthritis with rheumatoid factor, unspecified (principal); M15.9 Polyosteoarthritis, unspecified; Z51.81 Encounter for therapeutic drug level monitoring; Z79.69 Long term (current) use of other immunomodulators and immunosuppressants
CPT/HCPCS: 99213; G2211

== ENCOUNTER → 2025-03-07 08:27 | Outpatient (BNVA) | payer MEDICARE, MEDICAID, SELFPAY | PROVIDERS: PCP Internal Medicine Geriatric Medicine; Visit Provider Student in an Organized Health Care Education/Training Program | DX: M05.9 Rheumatoid arthritis with rheumatoid factor, unspecified (principal); M15.9 Polyosteoarthritis, unspecified; Z51.81 Encounter for therapeutic drug level monitoring; Z79.69 Long term (current) use of other immunomodulators and immunosuppressants; Z87.891 Personal history of nicotine dependence | CPT/HCPCS: 99212 ==